=== PATIENT | male | born 1960 | race African-American/Black ===

== ENCOUNTER 2016-04-24 09:10 | Inpatient (IN) | payer BC ==
[~2016-04-24] VITALS: Ht 182.9 cm; Wt 96.7 kg
[~2016-04-24 09:10] MED LIST: AMIO200T2 PO; AZIT250T PO; BENZ100C PO; BENZ100C2 PO; BUDE10.2 IH; CETI10CA PO; DEXT20CA7 PO; DIGO125T16 PO; DILT240C32 PO; FERR-26 PO; FURO-68 PO; LISI-338 PO; LOSA25TA4 PO; METO25TA9 PO; METO50TA2 PO; MONT10TA9 PO; OMEP20CA5 PO; PANT40TA5 PO; POLY17PO5 PO; POTA10TA12 PO; RIVA10TA PO; SPIR25TA PO; TRAV5DRO OU
[2016-04-24] MEDS ORDERED: IV NORMAL SALINE 1000ML BAG 1,000 ML IV SCH (09:21)
[2016-04-24] MEDS ORDERED: FENTANYL PF 100 MCG/2 ML VIAL. IV PRN (09:30)
[2016-04-24] MEDS ORDERED: ONDANSETRON PF 4 MG/2 ML VIAL. IV ONE (09:30)
[2016-04-24] MEDS ORDERED: ASPIRIN 81 MG TAB.CHEW PO ONE (09:30)
--- NOTE | 2016-04-24 09:34 | PHYS DOC ---
Past Medical History Past Medical History: A-Fib, CHF, COPD, Hypertension Past Surgical History: Pacemaker Additional Past Surgical Histo: open heart, cardioversion Alcohol Use: Occasionally Drug Use: Marijuana Adult General Chief Complaint Chief Complaint: CHEST PAIN HPI HPI Patient is a 55 year old male who presents with complaint of chest pain. Patient states his symptoms started at 0330 this morning. Patient states that he is having constant substernal chest pain with associated shortness of breath. Patient has history of atrial fibrillation, congestive heart failure, and COPD. Patient rates pain currently as 7 out of 10. Patient denies nausea. Patient does admit to worsening swelling in both his legs and his abdomen. Patient has not taken any medications to help with symptoms. Patient follows a Dr. Pace of cardiology and Dr. Roman for primary care. Review of Systems Review of Systems Constitutional: Denies fever or chills [] Eyes: Denies change in visual acuity, redness, or eye pain [] HENT: Denies nasal congestion or sore throat [] Respiratory: Cough, shortness of breath [] Cardiovascular: Chest pain, edema [] GI: Denies abdominal pain, nausea, vomiting, bloody stools or diarrhea [] : Denies dysuria or hematuria [] Musculoskeletal: Denies back pain or joint pain [] Integument: Denies rash or skin lesions [] Neurologic: Denies headache, focal weakness or sensory changes [] Endocrine: Denies polyuria or polydipsia [] Current Medications Current Medications Current Medications Medications (Trade) Dose Ordered Sig/Jaison Start Time Stop Time Status Last Admin Dose Admin Aspirin (Children'S Aspirin) 324 mg 1X ONCE 04/24/16 09:30 04/24/16 09:35 DC 04/24/16 09:47 324 MG Fentanyl Citrate 50 mcg 50 mcg PRN Q15MIN PRN 04/24/16 09:30 04/25/16 09:29 04/24/16 09:52 50 MCG Ondansetron HCl (Zofran) 4 mg 1X ONCE 04/24/16 09:30 04/24/16 09:35 DC 04/24/16 09:50 4 MG Sodium Chloride (Iv Sodium Chloride 0.9% 1000ml Bag) 1,000 ml @ 75 mls/hr [id number] 04/24/16 09:21 04/24/16 12:39 DC 04/24/16 09:46 75 MLS/HR Allergies Allergies Allergies Coded Allergies Type Severity Reaction Last Updated Verified No Known Drug Allergies 09/15/15 No Physical Exam Physical Exam Constitutional: Alert, afebrile, appears in mild to moderate respiratory distress. [] HENT: Normocephalic, atraumatic, bilateral external ears normal, oropharynx moist, no oral exudates, nose normal. [] Eyes: PERRLA, EOMI, conjunctiva normal, no discharge. [] Neck: Normal range of motion, no tenderness, supple, no stridor. [] Cardiovascular: Normal rate, irregular rhythm, no murmur [] Lungs & Thorax: Mildly restricted air movement bilaterally, no wheezes, fine rales bilaterally [] Abdomen: Bowel sounds normal, mild to moderately distended, no tenderness, no masses, no pulsatile masses. [] Skin: Warm, dry, no erythema, no rash. [] Back: No tenderness, no CVA tenderness. [] Extremities: No tenderness, no cyanosis, no clubbing, ROM intact, 2+ pitting edema in the bilateral lower extremities. [] Neurologic: Alert and oriented X 3, normal motor function, normal sensory function, no focal deficits noted. [] Current Patient Data Vital Signs Vital Signs Date Time Temp Pulse Resp B/P Pulse Ox O2 Delivery O2 Flow Rate FiO2 04/24/16 09:52 22 04/24/16 09:12 97.8 86 120/71 93 Nasal Cannula 3 97.8 Lab Values Laboratory Tests Test 04/24/16 09:40 White Blood Count 6.3x10^3/uL (4.0-11.0) Red Blood Count 3.71x10^6/uL (4.30-5.70) L Hemoglobin 9.9g/dL (13.0-17.5) L Hematocrit 31.3% (39.0-53.0) L Mean Corpuscular Volume 84fL (79-100) Mean Corpuscular Hemoglobin 27pg (25-35) Mean Corpuscular Hemoglobin Concent 32g/dL (31-37) Red Cell Distribution Width 15.1% (11.5-14.5) H Platelet Count 223x10^3/uL (140-400) Neutrophils (%) (Auto) 68% (31-73) Lymphocytes (%) (Auto) 18% (24-48) L Monocytes (%) (Auto) 13% (0-9) H Eosinophils (%) (Auto) 0% (0-3) Basophils (%) (Auto) 1% (0-3) Neutrophils # (Auto) 4.2x10^3uL (1.8-7.7) Lymphocytes # (Auto) 1.1x10^3/uL (1.0-4.8) Monocytes # (Auto) 0.8x10^3/uL (0.0-1.1) Eosinophils # (Auto) 0.0x10^3/uL (0.0-0.7) Basophils # (Auto) 0.0x10^3/uL (0.0-0.2) Prothrombin Time 44.1SEC (11.7-14.0) H Prothrombin Time INR 5.0 (0.8-1.1) *H Sodium Level 141mmol/L (136-145) Potassium Level 4.1mmol/L (3.5-5.1) Chloride Level 106mmol/L (98-107) Carbon Dioxide Level 21mmol/L (21-32) Anion Gap 14 (6-14) Blood Urea Nitrogen 16mg/dL (8-26) Creatinine 1.1mg/dL (0.7-1.3) Estimated GFR (Cockcroft-Gault) 84.4 Glucose Level 135mg/dL (70-99) H Calcium Level 8.8mg/dL (8.5-10.1) Magnesium Level 1.9mg/dL (1.8-2.4) Total Bilirubin 0.8mg/dL (0.2-1.0) Direct Bilirubin 0.4mg/dL (0.0-0.2) H Aspartate Amino Transferase (AST) 34U/L (15-37) Alanine Aminotransferase (ALT) 25U/L (16-63) Alkaline Phosphatase 229U/L (46-116) H Creatine Kinase 59U/L (39-308) Creatine Kinase MB (Mass) 0.5ng/mL (0.0-3.6) Creatine Kinase MB Relative Index % (0-4) Troponin I Quantitative 0.018ng/mL (0.000-0.055) GR-Xya-I-Type Natriuretic Peptide 1681pg/mL (0-124) H Total Protein 7.2g/dL (6.4-8.2) Albumin 2.9g/dL (3.4-5.0) L Laboratory Tests 04/24/16 09:40 Laboratory Tests 04/24/16 09:40 EKG EKG Interpreted by me: Heart rate 83, paced ventricular rhythm, no acute ST elevations or depressions [] Radiology/Procedures Radiology/Procedures [facility] [address] [place] [address] IMAGING REPORT Signed PATIENT: KURTIS WERNER ACCOUNT: [id number] : 1960 LOCATION: ER AGE: 55 SEX: M EXAM STATUS: PRE ER ORD. PHYSICIAN: STU ISAAC MD REASON: chest pain PROCEDURE: PORTABLE CHEST 1V Indication: Chest pain and short of breath. Technique: Upright portable chest radiograph was obtained. Comparison is from January 23, 2016. Findings: There is minimal retrocardiac atelectasis and/or infiltrate. The lungs otherwise are clear. Heart is upper limits of normal in size. There is no definite heart failure. Pacemaker is noted. Median sternotomy wires are noted. Leads overlie the patient. Impression: Minimal retrocardiac atelectasis and or infiltrate suspected. DICTATED and SIGNED BY: KEELEY MCCOY MD DATE: 04/24/16939 CC: STU ISAAC MD; IDRIS ROMAN MD ~ [] Course & Med Decision Making Course & Med Decision Making Pertinent Labs and Imaging studies reviewed. (See chart for details) The patient was given IV fentanyl, Zofran, oral aspirin in the emergency department. Patient's initial troponin level was negative. Patient has an elevated BNP and an abnormal chest x-ray. Patient does not display leukocytosis or fever. Due to persistent chest pain the patient will need be admitted to rule out myocardial infarction area patient also appears to have a component of congestive heart failure which will require treatment. I consulted Dr. Pace of cardiology to follow patient in hospital. Patient was admitted to Dr. Rojas. Darling Disclaimer Darling Disclaimer This electronic medical record was generated, in whole or in part, using a voice recognition dictation system. Departure Departure Impression: Primary Impression: Chest pain Additional Impressions: Congestive heart failure COPD (chronic obstructive pulmonary disease) Moderate protein malnutrition Disposition: ADMITTED INPATIENT Admitting Physician: Idris Roamn Condition: GUARDED Referrals: IDRIS ROMAN MD (PCP) Problem Qualifiers Primary Impression: Chest pain Chest pain type: unspecified Qualified Code: R07.9 - Chest pain, unspecified Additional Impressions: Congestive heart failure Congestive heart failure type: unspecified congestive heart failure type Congestive heart failure chronicity: acute on chronic Qualified Code: I50.9 - Heart failure, unspecified COPD (chronic obstructive pulmonary disease) COPD type: unspecified COPD Qualified Code: J44.9 - Chronic obstructive pulmonary disease, unspecified STU ISAAC MD Apr 24, 2016 09:34
--- NOTE | 2016-04-24 09:35 | EKG ---
[facility] [address] [place] [address] Test Date: 2016-04-24 Test Time: 09:19:43 Pat Name: KURTIS WERNER Department: Room: Gender: M Fishing Hand: : 1960 Requested By: STU ISAAC Order Number: [id number] Reading MD: Chelsea Moore Measurements Intervals [place] Rate: 83 P: [place]: QRS: -88 QRSD: 202 T: 118 QT: 440 QTc: 518 Interpretive Statements ATRIAL FIBRILLAQTION VENTRICULAR PREMATURE COMPLEX(ES) ABNORMAL LEFT AXIS DEVIATION LOW LIMB LEAD VOLTAGE NON SPECIFIC INTRAVENTRICULAR BLOCK QRS(T) CONTOUR ABNORMALITY CONSISTENT WITH ANTEROSEPTAL INFARCT Electronically Signed On 04-25-2016 15:09:30 CDT by Chelsea Moore
--- NOTE | 2016-04-24 09:44 | RAD ---
Indication: Chest pain and short of breath. Technique: Upright portable chest radiograph was obtained. Comparison is from January 23, 2016. Findings: There is minimal retrocardiac atelectasis and/or infiltrate. The lungs otherwise are clear. Heart is upper limits of normal in size. There is no definite heart failure. Pacemaker is noted. Median sternotomy wires are noted. Leads overlie the patient. Impression: Minimal retrocardiac atelectasis and or infiltrate suspected.
[2016-04-24 10:11] LABS: BASO % 1 % (0-3); EOS % 0 % (0-3); HEMATOCRIT 31.3 % (39.0-53.0); HEMOGLOBIN 9.9 g/dL (13.0-17.5); LYMPH # 1.1 x10^3/uL (1.0-4.8); LYMPH % 18 % (24-48); MEAN CORPUSCULAR HEMOGLOBIN 27 pg (25-35); MEAN CORPUSCULAR HGB CONC 32 g/dL (31-37); MEAN CORPUSCULAR VOLUME 84 fL (79-100); MONO % 13 % (0-9); NEUT % 68 % (31-73); PLATELET COUNT 223 x10^3/uL (140-400); RED BLOOD COUNT 3.71 x10^6/uL (4.30-5.70); RED CELL DISTRIBUTION WIDTH 15.1 % (11.5-14.5); WHITE BLOOD COUNT 6.3 x10^3/uL (4.0-11.0)
[2016-04-24 10:18] LABS: CALCIUM 8.8 mg/dL (8.5-10.1); CREATININE 1.1 mg/dL (0.7-1.3); GFR 84.4; POTASSIUM 4.1 mmol/L (3.5-5.1)
[2016-04-24 10:24] LABS: ALBUMIN 2.9 g/dL (3.4-5.0); DIRECT BILIRUBIN 0.4 mg/dL (0.0-0.2); MAGNESIUM 1.9 mg/dL (1.8-2.4); TOTAL BILIRUBIN 0.8 mg/dL (0.2-1.0); TOTAL PROTEIN 7.2 g/dL (6.4-8.2)
[2016-04-24 10:28] LABS: PROTHROMBIN TIME PATIENT 44.1 SEC (11.7-14.0)
[2016-04-24 10:32] LABS: CKMB MASS 0.5 ng/mL (0.0-3.6); CREATINE KINASE 59 U/L (39-308)
[2016-04-24] MEDS ORDERED: ACETAMINOPHEN 325 MG TABLET. PO PRN (11:00)
[2016-04-24] MEDS ORDERED: ONDANSETRON PF 4 MG/2 ML VIAL. IV PRN (11:00)
[2016-04-24] MEDS: IPRATRPIUM/ALBUTEROL 0.5/2.5MG 3 ML NEBU. NEB SCH ×2 (11:30→18:02)
[2016-04-24 12:15] VITALS: BP 99/73
[2016-04-24] MEDS: FUROSEMIDE 40 MG TABLET PO SCH (13:00)
[2016-04-24] MEDS: METOPROLOL SUCC 24HR ER 25 MG TAB.ER.24H. PO SCH (13:00)
[2016-04-24] MEDS: DIGOXIN 125 MCG TABLET PO SCH (13:00)
--- NOTE | 2016-04-24 13:24 | PDOC2 ---
CARDIOLOGY CONSULT NOTE CHEIF COMPLAINT: Shortness of breath Problems: HPI: Mr. Joaquin is a pleasant 55-year-old gentleman who comes into the hospital for overall feeling ill. He reports that he has been having some chest discomfort across his anterior precordium. There are no exacerbating or alleviating factors. He also has had some mild exertional dyspnea. He reports lower extremity edema. He reports compliance with his medications. He otherwise denies any other specific limitations at this time. PMHX: #1 atrial fibrillation, paroxysmal on Xarelto #2 s/p dual chamber biotronik pacemaker #3 Mild LV dysfunction. EF 45% #4 HTN #5 Presumed ASD repair at a young age #6 Chronic REIA occlusion SOCHX: Patient lives at home with his . He denies any alcohol, tobacco or illicit drug use. FAMHX: No early heart disease. CURRENT MEDS: Current Medications Medications (Trade) Dose Ordered Sig/Jaison Start Time Stop Time Status Last Admin Dose Admin Acetaminophen (Tylenol) 650 mg PRN Q4HRS PRN 04/24/16 11:00 04/25/16 10:59 Albuterol/ Ipratropium (Duoneb) 3 ml RTQID 04/24/16 12:00 04/25/16 11:59 04/24/16 11:30 3 ML Amiodarone HCl (Cordarone) 200 mg HS 04/24/16 21:00 Aspirin (Children'S Aspirin) 324 mg 1X ONCE 04/24/16 09:30 04/24/16 09:35 DC 04/24/16 09:47 324 MG Benzonatate (Tessalon Perle) 100 mg TID 04/24/16 14:00 Digoxin (Lanoxin) 125 mcg DAILY 04/24/16 13:00 Fentanyl Citrate (Fentanyl 2ml Vial) 50 mcg PRN Q2HR PRN 04/24/16 11:00 04/25/16 10:59 Fentanyl Citrate 50 mcg 50 mcg PRN Q15MIN PRN 04/24/16 09:30 04/25/16 09:29 04/24/16 09:52 50 MCG Ferrous Sulfate (Feosol) 325 mg DAILY 04/24/16 13:00 Furosemide (Lasix) 40 mg DAILY 04/24/16 13:00 Losartan Potassium (Cozaar) 25 mg HS 04/24/16 21:00 Metoprolol Succinate (Toprol Xl) 25 mg DAILY 04/24/16 13:00 Montelukast Sodium (Singulair) 10 mg HS 04/24/16 21:00 Ondansetron HCl (Zofran) 4 mg PRN Q8HRS PRN 04/24/16 11:00 04/25/16 10:59 Pantoprazole Sodium (Protonix) 40 mg QHS 04/24/16 21:00 Polyethylene Glycol (miraLAX PACKET) 17 gm DAILY 04/24/16 14:00 Potassium Chloride (Klor-Con) 20 meq DAILYWBKFT 04/24/16 14:00 Rivaroxaban (Xarelto) 20 mg DAILYWSUP 04/24/16 17:00 Sodium Chloride (Iv Sodium Chloride 0.9% 1000ml Bag) 1,000 ml @ 75 mls/hr [id number] 04/24/16 09:21 04/24/16 12:39 DC 04/24/16 09:46 75 MLS/HR Spironolactone (Aldactone) 25 mg DAILY 04/24/16 14:00 ALLERGIES: Allergies Coded Allergies Type Severity Reaction Last Updated Verified No Known Drug Allergies 09/15/15 No ROS: Review of systems is negative for 10 out of 14 systems reviewed unless otherwise mentioned above in history of present illness. PHYSICAL EXAM: Vital Signs: Vital Signs Date Time Temp Pulse Resp B/P Pulse Ox O2 Delivery O2 Flow Rate FiO2 04/24/16 11:31 93 Nasal Cannula 3.0 04/24/16 11:16 82 17 119/72 04/24/16 09:12 97.8 97.8 Physical Exam: The patient appeared well nourished and normally developed. Head exam is unremarkable. No scleral icterus or corneal arcus noted. Neck is without jugular venous distension, thyromegaly, or carotid bruits. Carotid upstrokes are brisk bilaterally. Lungs are clear to auscultation and percussion. Cardiac exam reveals the PMI to be normally sized and situated. Rhythm is regular. First and second heart sounds normal. No murmurs, rubs or gallops. Abdominal exam reveals normal bowel sounds, no masses, no organomegaly and no aortic enlargement. Extremities have 2+ pitting edema and both femoral and pedal pulses are normal. Msk: No traumua Neuro: No focal deficits DIAGNOSTIC TESTING: BNP is elevated. Renal function is within normal limits. INR is elevated 5.5. Lab Laboratory Tests Test 04/24/16 09:40 White Blood Count 6.3x10^3/uL (4.0-11.0) Red Blood Count 3.71x10^6/uL (4.30-5.70) L Hemoglobin 9.9g/dL (13.0-17.5) L Hematocrit 31.3% (39.0-53.0) L Mean Corpuscular Volume 84fL (79-100) Mean Corpuscular Hemoglobin 27pg (25-35) Mean Corpuscular Hemoglobin Concent 32g/dL (31-37) Red Cell Distribution Width 15.1% (11.5-14.5) H Platelet Count 223x10^3/uL (140-400) Neutrophils (%) (Auto) 68% (31-73) Lymphocytes (%) (Auto) 18% (24-48) L Monocytes (%) (Auto) 13% (0-9) H Eosinophils (%) (Auto) 0% (0-3) Basophils (%) (Auto) 1% (0-3) Neutrophils # (Auto) 4.2x10^3uL (1.8-7.7) Lymphocytes # (Auto) 1.1x10^3/uL (1.0-4.8) Monocytes # (Auto) 0.8x10^3/uL (0.0-1.1) Eosinophils # (Auto) 0.0x10^3/uL (0.0-0.7) Basophils # (Auto) 0.0x10^3/uL (0.0-0.2) Prothrombin Time 44.1SEC (11.7-14.0) H Prothromb Time International Ratio 5.0 (0.8-1.1) *H Sodium Level 141mmol/L (136-145) Potassium Level 4.1mmol/L (3.5-5.1) Chloride Level 106mmol/L (98-107) Carbon Dioxide Level 21mmol/L (21-32) Anion Gap 14 (6-14) Blood Urea Nitrogen 16mg/dL (8-26) Creatinine 1.1mg/dL (0.7-1.3) Estimated GFR (Cockcroft-Gault) 84.4 Glucose Level 135mg/dL (70-99) H Calcium Level 8.8mg/dL (8.5-10.1) Total Bilirubin 0.8mg/dL (0.2-1.0) Direct Bilirubin 0.4mg/dL (0.0-0.2) H Aspartate Amino Transf (AST/SGOT) 34U/L (15-37) Alkaline Phosphatase 229U/L (46-116) H Creatine Kinase 59U/L (39-308) Creatine Kinase MB (Mass) 0.5ng/mL (0.0-3.6) Creatine Kinase MB Relative Index % (0-4) Total Protein 7.2g/dL (6.4-8.2) Albumin 2.9g/dL (3.4-5.0) L ASSESSMENT: 1. Suspect mild acute on chronic systolic and diastolic dysfunction. 2. Possible transient atrial arrhythmias. PLAN: 1. Agree with continuation of home medications with intravenous diuresis to see if it improves symptoms 2. Patient has had a cardiac catheterization within the last year without any significant obstructive disease. Would continue supportive care at this time. 3. We will repeat an echocardiogram to assess LV systolic function if he does not any significant improvement with medical therapy over the next 24 hours. Thank you for this consultation. We will follow along with you. SHAN COREAS MD Apr 24, 2016 13:24
[2016-04-24 13:47] LABS: INR 4.3 (0.8-1.1); PROTHROMBIN TIME PATIENT 39.3 SEC (11.7-14.0)
[2016-04-24] MEDS: SPIRONOLACTONE 25 MG TABLET PO SCH (14:00)
[2016-04-24] MEDS: POLYETHYLENE GLYCOL 3350 17 GM PACKET. PO SCH (14:00)
[2016-04-24] MEDS ORDERED: FUROSEMIDE 40 MG/4 ML VIAL IVP ONE (14:00)
[2016-04-24 15:05] VITALS: BP 97/73
[2016-04-24 15:30] VITALS: BP 118/75
[2016-04-24] MEDS: BENZONATATE 100 MG CAPSULE. PO SCH ×2 (16:04→21:38)
[2016-04-24] MEDS: POTASSIUM CHLORIDE 10 MEQ TABLET.ER. PO SCH (16:05)
[2016-04-24] MEDS: FERROUS SULFATE 325 MG TABLET PO SCH (16:05)
[2016-04-24] MEDS: TRAMADOL 50 MG TABLET. PO PRN (16:06)
[2016-04-24] MEDS ORDERED: RIVAROXABAN 10 MG TABLET. PO SCH (17:00)
[2016-04-24 19:40] VITALS: BP 122/76
[2016-04-24] MEDS: MONTELUKAST SODIUM 10 MG TABLET. PO SCH (21:36)
[2016-04-24] MEDS: PANTOPRAZOLE 40 MG TABLET. PO SCH (21:37)
[2016-04-24] MEDS: AMIODARONE HCL 200 MG TABLET PO SCH (21:38)
[2016-04-24] MEDS: LOSARTAN POTASSIUM 25 MG TABLET. PO SCH (21:38)
[2016-04-24 23:33] VITALS: BP 124/72
[2016-04-25] MEDS: TRAMADOL 50 MG TABLET. PO PRN ×3 (01:06→18:15)
[2016-04-25 03:15] VITALS: BP 132/68
[2016-04-25 04:18] LABS: BASO % 1 % (0-3); EOS % 0 % (0-3); HEMATOCRIT 30.3 % (39.0-53.0); HEMOGLOBIN 9.3 g/dL (13.0-17.5); LYMPH # 1.1 x10^3/uL (1.0-4.8); LYMPH % 14 % (24-48); MEAN CORPUSCULAR HEMOGLOBIN 26 pg (25-35); MEAN CORPUSCULAR HGB CONC 31 g/dL (31-37); MEAN CORPUSCULAR VOLUME 86 fL (79-100); MONO % 17 % (0-9); NEUT % 68 % (31-73); PLATELET COUNT 217 x10^3/uL (140-400); RED BLOOD COUNT 3.54 x10^6/uL (4.30-5.70); RED CELL DISTRIBUTION WIDTH 14.7 % (11.5-14.5); WHITE BLOOD COUNT 7.4 x10^3/uL (4.0-11.0)
[2016-04-25 04:32] LABS: CALCIUM 8.8 mg/dL (8.5-10.1); CREATININE 1.1 mg/dL (0.7-1.3); GFR 84.4; POTASSIUM 4.8 mmol/L (3.5-5.1)
--- NOTE | 2016-04-25 05:14 | ACF ---
Admission Forms Criteria HEART FAILURE: COMMON COMPLICATIONS Clinical Indications for Inpatient Care (Place 'X' for any and all applicable criteria): Ongoing inpatient care may be indicated for heart failure with ANY ONE of the following (1)(2)(3)(4)(5): [ ]I. Ongoing need for care for primary condition requiring frequent therapy adjustments because of changes in cardiac function (eg, drug dosage changes for drugs that are renally metabolized) [ ]II. New-onset heart failure [ ]III. Heart failure with decreased urine output not responsive to attempts to optimize volume status [ ]IV. Acute cardiac ischemia causing or associated with failure [X]V. Complications of heart failure, including ANY ONE of the following: [ ]a) Pericardial effusion [ ]b) Symptomatic pleural effusion [ ]c) O2 saturation <90% or PO2 < 60 mm Hg (8.0 kPa) on room air or require baseline supplemental O2 [ ]d) Tachypnea [X]e) Dyspnea [ ]f) Syncope [ ]g) Change in mental status [ ]h) Acute renal insufficiency that is severe (reduction of more than 50% in estimated glomerular filtration rate from baseline) or progressive reduction of more than 25% in estimated glomerular filtration rate from baseline, with creatinine continuing to rise) [ ]i) Hemodynamic instability [ ]j) Anasarca [ ]k) Clinically significant metabolic abnormalities due to heart failure (eg, new-onset metabolic acidosis) Extended stay beyond goal length of stay for primary condition may be needed until ALL of the following are present(1)(3): [ ]a) Stable and effective diuretic regimen established (or patient on stable dialysis regimen if in chronic renal failure) [ ]b) Breathing comfortably at rest [ ]c) Saturation of arterial oxygen greater than 90% or at acceptable baseline [ ]d) Pulmonary edema absent or improved [ ]e) Hemodynamic stability [ ]f) Volume status acceptable on oral medication [ ]g) Peripheral or sacral edema absent or improved [ ]h) Renal function stable and manageable at a lower level of care [ ]i) Complications (eg, pleural effusion) resolved or manageable at a lower level of care [ ]j) Patient or caregiver has received written discharge instructions or educational material addressing activity level, diet, discharge medications, follow-up appointment, weight monitoring, and what to do if symptoms worsen The original [employer] [facility] content created by [employer] has been revised. The portions of the content which have been revised are identified through the use of italic text or in bold, and [facility] has neither reviewed nor approved the modified material.All other unmodified content is copyright [facility]. Please see references footnoted in the original [facility] edition 2016 Admission Criteria Met?: Yes ALIYA CROOKS Apr 25, 2016 05:14
[2016-04-25] MEDS: FENTANYL PF 100 MCG/2 ML VIAL. IV PRN ×2 (05:35→07:54)
[2016-04-25 06:03] LABS: INR 2.3 (0.8-1.1); PROTHROMBIN TIME PATIENT 24.2 SEC (11.7-14.0)
[2016-04-25 07:54] VITALS: BP 121/80
[2016-04-25] MEDS: POTASSIUM CHLORIDE 10 MEQ TABLET.ER. PO SCH (08:00)
[2016-04-25] MEDS: IPRATRPIUM/ALBUTEROL 0.5/2.5MG 3 ML NEBU. NEB SCH ×3 (08:04→19:38)
[2016-04-25] MEDS: METOPROLOL SUCC 24HR ER 25 MG TAB.ER.24H. PO SCH ×2 (09:00→10:52)
[2016-04-25] MEDS: FERROUS SULFATE 325 MG TABLET PO SCH (09:00)
[2016-04-25] MEDS: POLYETHYLENE GLYCOL 3350 17 GM PACKET. PO SCH (09:00)
[2016-04-25] MEDS: BENZONATATE 100 MG CAPSULE. PO SCH ×3 (09:00→21:08)
[2016-04-25 10:22] VITALS: BP 117/72
[2016-04-25] MEDS: SPIRONOLACTONE 25 MG TABLET PO SCH (10:50)
[2016-04-25] MEDS: FUROSEMIDE 40 MG TABLET PO SCH (10:50)
[2016-04-25] MEDS: DIGOXIN 125 MCG TABLET PO SCH (10:52)
--- NOTE | 2016-04-25 11:34 | RAD ---
Indication: Abdominal pain. Technique: KUB contains 2 images. No comparison is available. Findings: Bowel gas pattern is nonobstructive with gas to the rectum. No calculus projecting over either renal shadow is apparent. Leads overlie the patient. There are mild degenerative changes in the spine. Impression: Nonobstructive bowel gas pattern.
[2016-04-25] MEDS ORDERED: FENTANYL PF 100 MCG/2 ML VIAL. IV ONE (13:45)
[2016-04-25] MEDS ORDERED: IPRATRPIUM/ALBUTEROL 0.5/2.5MG 3 ML NEBU. NEB ONE (14:15)
[2016-04-25] MEDS ORDERED: FUROSEMIDE 40 MG/4 ML VIAL IVP ONE (14:15)
[2016-04-25] MEDS ORDERED: HYDROCODONE/APAP 5/325MG TABLET. PO PRN (14:15)
[2016-04-25] MEDS ORDERED: POTASSIUM CHLORIDE 20 MEQ TABLET.ER. PO ONE (14:15)
--- NOTE | 2016-04-25 14:48 | RAD ---
Indication: Abdominal pain and bloating. Technique: Ultrasound of the abdomen was performed. No comparison is available. Findings: Visualized pancreas is unremarkable. Aorta is normal caliber. IVC is patent. The liver is mildly increased in size and is normal in echotexture. Bidirectional flow is noted in the portal vein. Gallbladder wall is thickened, nonspecific but can be associated with ascites. Moderate ascites is noted. Common bile duct is within normal limits at 4 mm. Kidneys are without hydronephrosis or mass. Spleen is not enlarged. Impression: 1. Moderate ascites. 2. Gallbladder wall thickening can be associated with ascites. 3. Mild hepatomegaly. Bidirectional flow in the portal vein.
[2016-04-25 15:25] VITALS: BP 120/71
--- NOTE | 2016-04-25 16:21 | PDOC ---
CARDIOLOGY PROGRESS NOTE SUBJECTIVE: No acute events overnight. Per today, he apparently tried to commit suicide 3 weeks ago and was in [place]. He denies any dyspnea today but does have MSK chest wall pain above his left nipple. Reports orthopnea at home. OBJECTIVE: Vital SIgns: Vital Signs Date Time Temp Pulse Resp B/P Pulse Ox O2 Delivery O2 Flow Rate FiO2 04/25/16 15:25 Nasal Cannula 4.0 04/25/16 14:55 18 04/25/16 10:56 92 04/25/16 10:52 82 04/25/16 10:22 97.9 117/72 97.9 I & O Intake and Output 04/25/16 07:00 Intake Total 1277 ml Output Total 2200 ml Balance -923 ml Intake Oral 1160 ml IV Total 117 ml Output Urine Total 2200 ml Objective: Gen: A/o x 3. NAD CVS: RRR no m/r/g LUNGS: Few rhonchi ABD: Soft, NT/ND EXT: no edema. CURRENT MEDICATIONS: Current Medications Medications (Trade) Dose Ordered Sig/Jaison Start Time Stop Time Status Last Admin Dose Admin Acetaminophen (Tylenol) 650 mg PRN Q4HRS PRN 04/24/16 11:00 04/25/16 10:59 DC Acetaminophen/ Hydrocodone Bitart (Lortab 5/325) 1 tab PRN Q4HRS PRN 04/25/16 14:15 Albuterol/ Ipratropium (Duoneb) 3 ml RTQID 04/25/16 16:00 Amiodarone HCl (Cordarone) 200 mg HS 04/24/16 21:00 04/24/16 21:38 200 MG Aspirin (Children'S Aspirin) 324 mg 1X ONCE 04/24/16 09:30 04/24/16 09:35 DC 04/24/16 09:47 324 MG Benzonatate (Tessalon Perle) 100 mg TID 04/24/16 14:00 04/25/16 14:53 100 MG Digoxin (Lanoxin) 125 mcg DAILY 04/24/16 13:00 04/25/16 10:52 125 MCG Fentanyl Citrate (Fentanyl 2ml Vial) 50 mcg 1X ONCE 04/25/16 13:45 04/25/16 13:46 DC 04/25/16 14:55 50 MCG Fentanyl Citrate 50 mcg 50 mcg PRN Q15MIN PRN 04/24/16 09:30 04/25/16 09:29 DC 04/24/16 09:52 50 MCG Ferrous Sulfate (Feosol) 325 mg DAILY 04/24/16 13:00 04/24/16 16:05 325 MG Furosemide (Lasix) 40 mg 1X ONCE 04/25/16 14:15 04/25/16 14:16 DC 04/25/16 14:54 40 MG Latanoprost (Xalatan) 1 drop QHS 04/25/16 21:00 Losartan Potassium (Cozaar) 25 mg HS 04/24/16 21:00 04/24/16 21:38 25 MG Metoprolol Succinate (Toprol Xl) 25 mg DAILY 04/24/16 13:00 Montelukast Sodium (Singulair) 10 mg HS 04/24/16 21:00 04/24/16 21:36 10 MG Ondansetron HCl (Zofran) 4 mg PRN Q8HRS PRN 04/24/16 11:00 04/25/16 10:59 DC Pantoprazole Sodium (Protonix) 40 mg QHS 04/24/16 21:00 04/24/16 21:37 40 MG Polyethylene Glycol (miraLAX PACKET) 17 gm DAILY 04/24/16 14:00 Potassium Chloride (Klor-Con) 20 meq [id number] 04/26/16 08:00 Rivaroxaban (Xarelto) 20 mg DAILYWSUP 04/24/16 17:00 04/25/16 09:32 DC Sodium Chloride (Iv Sodium Chloride 0.9% 1000ml Bag) 1,000 ml @ 75 mls/hr [id number] 04/24/16 09:21 04/24/16 12:39 DC 04/24/16 09:46 75 MLS/HR Spironolactone (Aldactone) 25 mg DAILY 04/24/16 14:00 04/25/16 10:50 25 MG Tramadol HCl (Ultram) 50 mg PRN Q6HRS PRN 04/24/16 14:00 04/25/16 10:56 50 MG DIAGNOSTIC TESTING: Trop neg x 3. ASSESSMENT: 1. ADHF 2. PAF 3. Depression Problems: PLAN: 1. Lasix 40mg IVP BID 2. Pain control with Tramadol and toradol. Avoid narcotics given his suicide attempt recently but will defer to PCP 3. No clear cardiac ischemic issues. Will follow. SHAN COREAS MD Apr 25, 2016 16:21
[2016-04-25] MEDS ORDERED: KETOROLAC TROMETHAMINE 30 MG/ML SYRINGE. IV PRN (16:30)
[2016-04-25] MEDS ORDERED: FUROSEMIDE 40 MG/4 ML VIAL IVP SCH (16:30)
--- NOTE | 2016-04-25 18:55 | HP ---
ADMIT DATE: 04/25/2016 LOCATION: 208. REASON FOR ADMISSION TO THE HOSPITAL: 1. Shortness of breath. 2. Heart failure: Combined systolic diastolic heart failure. HISTORY OF PRESENT ILLNESS: The patient is a 55-year-old male and he was having shortness of breath, chest pain; came to the Emergency Room. He had a cardiac scan which showed no significant blockages last year and ejection fraction is 50% to 55% on the cath. The patient was seen by Cardiology and it was thought more of a combined diastolic-systolic heart failure, was given Lasix to see how the patient's condition improves. PAST MEDICAL HISTORY: Atrial fibrillation, on Xarelto; history of cardioversion in the past; diastolic heart failure; pulmonary hypertension; VSD repair as a child; COPD; iron deficiency anemia; hemorrhoids; reflux; arthritis; chronic renal insufficiency stage 2. PAST SURGICAL HISTORY: VSD repair as a child, has a pacemaker. FAMILY HISTORY: Diabetes in sister. Heart disease also in the sister. SOCIAL HISTORY: Smoked for 30 years, quit 6 months ago. Denies alcohol. Denies any drug abuse. ALLERGIES: No known drug allergies. MEDICATIONS AT HOME: Amiodarone 200 mg daily, Tessalon Perles daily, digoxin 125 mcg daily, iron 325 daily, Lasix 40 mg daily, losartan 25 mg daily, metoprolol 25 mg daily, Singulair 10 mg daily, Protonix 40 mg at bedtime, MiraLax 17 grams daily, potassium 20 mEq daily, Xarelto 20 mg at bedtime, spironolactone 25 mg daily, Travatan eyedrops daily. REVIEW OF SYSTEMS: Complains of chest pains on and off on the left side, short of breath, swelling in lower extremities. Denies any fever. Rest of 14 systems was reviewed and negative. PHYSICAL EXAMINATION: VITAL SIGNS: At the time of admission shows temperature 97, pulse 86, respirations 20, blood pressure 120/70, 93% on 3 liters. HEENT: Head is atraumatic. Pupils are equal. Oral cavity: No congestion. NECK: JVD slightly elevated. CHEST: Scar in the chest from VSD repair. Has a pacemaker in the left side of the chest. CARDIOVASCULAR: S1, S2. No murmurs. LUNGS: Clear to auscultation. Crackles at the bases and occasional wheezing. ABDOMEN: Soft, slightly prominent secondary to looks like ascites. EXTERNAL GENITALIA: No Erickson. RECTAL: Deferred. EXTREMITIES: 2+ edema all the way up to the knee . NEUROLOGIC: No focal deficit on extremities. LABORATORY DATA: Shows a white count of 6, hemoglobin 10, platelets 223. Electrolytes show sodium 141, potassium 4.1, chloride 106, bicarb 21, BUN 16, creatinine 1.1, glucose 135. Magnesium 1.9. LFTs normal. INR was high at 5.0, came down to 2.3. Chest x-ray: Mild CHF, cardiomegaly. EKG done, report is pending. FINAL IMPRESSION: 1. Chest pain, probably skeletomuscular. 2. Shortness of breath secondary to congestive heart failure secondary to diastolic heart failure. 3. Pulmonary hypertension. 4. History of ventricular septal defect repair. 5. History of pacemaker for bradycardia. 6. Atrial fibrillation, chronic, on Xarelto for anticoagulation. 7. Anemia secondary to iron deficiency. 8. Chronic renal insufficiency stage 2. 9. History of smoking until recently, 6 months ago stopped. PLAN: At this time, admit to hospital. Seen by Cardiology; does not think it is cardiac related. I will give IV Lasix. Also seen by Pulmonology in the past. The patient is in coagulopathy, INR was 5 even though he is not on Coumadin. He is on Xarelto, coming down to 2.3. SCDs and PARK hose, and see how the patient's condition improves. MARLON BURNS MD DR: JULIÁN/taiwo JOB#: [id number] / [id number] MARLON Sarabia MD, PRATIP MD MTDD
[2016-04-25 19:45] VITALS: BP 120/69
[2016-04-25] MEDS: MONTELUKAST SODIUM 10 MG TABLET. PO SCH (21:08)
[2016-04-25] MEDS: LOSARTAN POTASSIUM 25 MG TABLET. PO SCH (21:08)
[2016-04-25] MEDS: AMIODARONE HCL 200 MG TABLET PO SCH (21:08)
[2016-04-25] MEDS: LATANOPROST 0.005% OPHTH SOLUTION 2.5ML BOTTLE. OU SCH (21:09)
[2016-04-25] MEDS: PANTOPRAZOLE 40 MG TABLET. PO SCH (21:09)
[2016-04-25 23:30] VITALS: BP 116/62
[2016-04-26 03:35] VITALS: BP 108/61
[2016-04-26 05:17] LABS: CALCIUM 8.8 mg/dL (8.5-10.1); CREATININE 1.4 mg/dL (0.7-1.3); GFR 63.9; POTASSIUM 4.5 mmol/L (3.5-5.1)
[2016-04-26 07:48] VITALS: BP 98/68
--- NOTE | 2016-04-26 07:52 | EKG ---
[facility] [address] [place] [address] Test Date: 2016-04-26 Test Time: 07:35:03 Pat Name: KURTIS WERNER Department: Room: 208 1 Gender: M Maxillofacial Surgeon: : [id number] Requested By: MARLON BURNS Order Number: [id number] Reading MD: Measurements Intervals [place] Rate: 86 P: 8 PA: 180 QRS: -41 QRSD: 100 T: -69 QT: 344 QTc: 414 Interpretive Statements SINUS RHYTHM COMPLEX(ES) WITH ABERRANT INTRAVENTRICULAR CONDUCTION ABNORMAL LEFT AXIS DEVIATION CONSIDER LEFT VENTRICULAR HYPERTROPHY QRS(T) CONTOUR ABNORMALITY CONSISTENT WITH INFERIOR INFARCT AGE UNDETERMINED T ABNORMALITY IN ANTEROLATERAL LEADS ABNORMAL ECG RI6.01 No previous ECG available for comparison
[2016-04-26] MEDS ORDERED: ACETAMINOPHEN 325 MG TABLET. PO PRN (08:15)
[2016-04-26] MEDS: IPRATRPIUM/ALBUTEROL 0.5/2.5MG 3 ML NEBU. NEB SCH ×4 (08:27→19:41)
--- NOTE | 2016-04-26 08:31 | PDOC ---
FIOR PACHECO NEUROLOGY EPILEPSY PHYSICIAN 04/26/16 0831: IM PROGRESS NOTES- Subjective Subjective pain L sided chest with DB, no pain with palpation. abdomen still swollen, not decreasing. Objective Objective no distress Vitals Vital Signs Date Time Temp Pulse Resp B/P Pulse Ox O2 Delivery O2 Flow Rate FiO2 04/26/16 07:48 97.9 50 18 98/68 93 Nasal Cannula 3.0 97.9 Input & Output Intake and Output 04/26/16 07:00 Intake Total 2610 ml Output Total 850 ml Balance 1760 ml Intake Oral 2610 ml Output Urine Total 850 ml Physical Exam Physical Exam General appearance - alert chronically ill appearing, and in no distress Mental Status - alert, oriented to person, place, and time, affect appropriate to mood Head - normal Chest - clear to auscultation, no wheezes, rales or rhonchi, symmetric air entry Heart - S1 and S2 normal Abdomen - soft, nontender, + ascites distended, BS+ Neurological - no acute focal neurological deficit noted Musculoskeletal - no muscular tenderness noted Extremities - no pedal edema Skin - warm and dry Labs Laboratory Tests Test 04/24/16 09:40 04/24/16 13:10 04/25/16 00:01 04/25/16 03:00 White Blood Count 6.3x10^3/uL (4.0-11.0) 7.4x10^3/uL (4.0-11.0) Red Blood Count 3.71x10^6/uL (4.30-5.70) 3.54x10^6/uL (4.30-5.70) Hemoglobin 9.9g/dL (13.0-17.5) 9.3g/dL (13.0-17.5) Hematocrit 31.3% (39.0-53.0) 30.3% (39.0-53.0) Mean Corpuscular Volume 84fL (79-100) 86fL (79-100) Mean Corpuscular Hemoglobin 27pg (25-35) 26pg (25-35) Mean Corpuscular Hemoglobin Concent 32g/dL (31-37) 31g/dL (31-37) Red Cell Distribution Width 15.1% (11.5-14.5) 14.7% (11.5-14.5) Platelet Count 223x10^3/uL (140-400) 217x10^3/uL (140-400) Neutrophils (%) (Auto) 68% (31-73) 68% (31-73) Lymphocytes (%) (Auto) 18% (24-48) 14% (24-48) Monocytes (%) (Auto) 13% (0-9) 17% (0-9) Eosinophils (%) (Auto) 0% (0-3) 0% (0-3) Basophils (%) (Auto) 1% (0-3) 1% (0-3) Neutrophils # (Auto) 4.2x10^3uL (1.8-7.7) 5.0x10^3uL (1.8-7.7) Lymphocytes # (Auto) 1.1x10^3/uL (1.0-4.8) 1.1x10^3/uL (1.0-4.8) Monocytes # (Auto) 0.8x10^3/uL (0.0-1.1) 1.3x10^3/uL (0.0-1.1) Eosinophils # (Auto) 0.0x10^3/uL (0.0-0.7) 0.0x10^3/uL (0.0-0.7) Basophils # (Auto) 0.0x10^3/uL (0.0-0.2) 0.0x10^3/uL (0.0-0.2) Prothrombin Time 44.1SEC (11.7-14.0) 39.3SEC (11.7-14.0) 24.2SEC (11.7-14.0) Prothromb Time International Ratio 5.0 (0.8-1.1) 4.3 (0.8-1.1) 2.3 (0.8-1.1) Sodium Level 141mmol/L (136-145) 138mmol/L (136-145) Potassium Level 4.1mmol/L (3.5-5.1) 4.8mmol/L (3.5-5.1) Chloride Level 106mmol/L (98-107) 102mmol/L (98-107) Carbon Dioxide Level 21mmol/L (21-32) 23mmol/L (21-32) Anion Gap 14 (6-14) 13 (6-14) Blood Urea Nitrogen 16mg/dL (8-26) 14mg/dL (8-26) Creatinine 1.1mg/dL (0.7-1.3) 1.1mg/dL (0.7-1.3) Estimated GFR (Cockcroft-Gault) 84.4 84.4 Glucose Level 135mg/dL (70-99) 94mg/dL (70-99) Calcium Level 8.8mg/dL (8.5-10.1) 8.8mg/dL (8.5-10.1) Magnesium Level 1.9mg/dL (1.8-2.4) Total Bilirubin 0.8mg/dL (0.2-1.0) Direct Bilirubin 0.4mg/dL (0.0-0.2) Aspartate Amino Transf (AST/SGOT) 34U/L (15-37) Alanine Aminotransferase (ALT/SGPT) 25U/L (16-63) Alkaline Phosphatase 229U/L (46-116) Creatine Kinase 59U/L (39-308) Creatine Kinase MB (Mass) 0.5ng/mL (0.0-3.6) Creatine Kinase MB Relative Index % (0-4) Troponin I Quantitative 0.018ng/mL (0.000-0.055) 0.020ng/mL (0.000-0.055) 0.019ng/mL (0.000-0.055) NR-Ics-Y-Type Natriuretic Peptide 1681pg/mL (0-124) Total Protein 7.2g/dL (6.4-8.2) Albumin 2.9g/dL (3.4-5.0) Test 04/26/16 03:39 Sodium Level 137mmol/L (136-145) Potassium Level 4.5mmol/L (3.5-5.1) Chloride Level 101mmol/L (98-107) Carbon Dioxide Level 24mmol/L (21-32) Anion Gap 12 (6-14) Blood Urea Nitrogen 19mg/dL (8-26) Creatinine 1.4mg/dL (0.7-1.3) Estimated GFR (Cockcroft-Gault) 63.9 Glucose Level 99mg/dL (70-99) Calcium Level 8.8mg/dL (8.5-10.1) Laboratory Tests Test 04/26/16 03:39 Sodium Level 137mmol/L (136-145) Potassium Level 4.5mmol/L (3.5-5.1) Chloride Level 101mmol/L (98-107) Carbon Dioxide Level 24mmol/L (21-32) Anion Gap 12 (6-14) Blood Urea Nitrogen 19mg/dL (8-26) Creatinine 1.4mg/dL (0.7-1.3) Estimated GFR (Cockcroft-Gault) 63.9 Glucose Level 99mg/dL (70-99) Calcium Level 8.8mg/dL (8.5-10.1) Meds Current Medications Acetaminophen (Tylenol) 650 mg PRN Q6HRS PRN PO MILD PAIN / TEMP; Start at 08:15 Acetaminophen/ Hydrocodone Bitart (Lortab 5/325) 1 tab PRN Q4HRS PRN PO MILD PAIN; Start 04/25/16 at 14:15 Albuterol/ Ipratropium (Duoneb) 3 ml 1X ONCE NEB Last administered on 15:25; Start 04/25/16 at 14:15; Stop 04/25/16 at 14:23; Status DC Albuterol/ Ipratropium (Duoneb) 3 ml RTQID NEB Last administered on 04/25/16 19:38; Start 04/25/16 at 16:00 Fentanyl Citrate (Fentanyl 2ml Vial) 50 mcg 1X ONCE IV Last administered on 14:55; Start 04/25/16 at 13:45; Stop 04/25/16 at 13:46; Status DC Furosemide (Lasix) 40 mg 1X ONCE IVP Last administered on 04/25/16 14:54; Start 04/25/16 at 14:15; Stop 04/25/16 at 14:16; Status DC Furosemide (Lasix) 40 mg BID92 IVP Last administered on 04/25/16 17:12; Start 04/25/16 at 16:30; Stop 04/26/16 at 07:41; Status DC Furosemide (Lasix) 40 mg BID92 IVP ; Start 04/26/16 at 09:00 Ketorolac Tromethamine (Toradol) 30 mg PRN Q6HRS PRN IV PAIN Last administered on 04/25/16 18:16; Start 04/25/16 at 16:30; Stop 04/26/16 at 08:12; Status DC Latanoprost (Xalatan) 1 drop QHS OU Last administered on 04/25/16 21:09; Start 04/25/16 at 21:00 Potassium Chloride (Klor-Con) 20 meq 1X ONCE PO Last administered on 14:53; Start 04/25/16 at 14:15; Stop 04/25/16 at 14:16; Status DC Potassium Chloride (Klor-Con) 20 meq DAILYWBKFT PO ; Start 04/26/16 at 08:00 Assessment Assessment IMPRESSION: 1. Chest pain-pleuritic, not reproducible with palpation chest wall 2. A/C systolic diastolic CHF EF 45% 3. Pulmonary hypertension mod to severe 4. History of ventricular septal defect repair. as child 5. History of pacemaker Biotronik dual chamber 6. Atrial fibrillation, chronic, on Xarelto for anticoagulation. 7. Anemia secondary to iron deficiency. 8. CKD II 9. History of smoking until recently, 6 months ago stopped. 10. COPD 11. depression PLAN: chest pain EKG old infarct had been off xarelto for 2 weeks last month pain chest worse with DB, not reproducible with chest wall palpation cardiology consult ?pleuritic consult pulmonary ascites-secondary to CHF CHF, combined acute Admit wt 207# 04/26 208# IO Daily weight Lasix 40mg IV bid depression Had stopped taking medications. Taking medications again and actively involved in medical care. monitor CKD II Admit BUN 16 04/26 18 Cr 1.1 1.4 K 4.1 4.5 not acute RF-due to diuresis acute CHF monitor AF xarelto DVT/GI prophylaxis SCD/PARK xarelto PPI For further plan of care, please refer to the orders. Plan Plan For more details regarding further plans, please refer to the orders. CHAVA NIXON MD 04/26/16 0952: IM PROGRESS NOTES- Assessment Assessment He has rt testicular swelling.No pain. Consult . Coagulopathy- on Xarelto for 2 weeks again. Consult - coagulopathy on Xarelto ? change /reduce dose. CKD 3. The patient was seen and examined by me. Chart reviewed and plan of care formulated. Discussed with, reviewed and agree with COMPUTER PROGRAMMING MANAGER's notes, plan of care and orders with modifications as necessary. For more details regarding further plans, please refer to the orders. FIOR PACHECO APRN Apr 26, 2016 08:31 CHAVA NIXON MD Apr 26, 2016 09:52
[2016-04-26] MEDS: FUROSEMIDE 40 MG/4 ML VIAL IVP SCH ×2 (08:55→14:16)
[2016-04-26] MEDS: BENZONATATE 100 MG CAPSULE. PO SCH ×3 (08:55→21:43)
[2016-04-26] MEDS: FERROUS SULFATE 325 MG TABLET PO SCH (08:55)
[2016-04-26] MEDS: TRAMADOL 50 MG TABLET. PO PRN ×2 (08:55→21:47)
[2016-04-26] MEDS: POTASSIUM CHLORIDE 20 MEQ TABLET.ER. PO SCH (08:55)
[2016-04-26] MEDS: DIGOXIN 125 MCG TABLET PO SCH (08:57)
[2016-04-26] MEDS: POLYETHYLENE GLYCOL 3350 17 GM PACKET. PO SCH (08:57)
[2016-04-26] MEDS: SPIRONOLACTONE 25 MG TABLET PO SCH (08:58)
[2016-04-26] MEDS: METOPROLOL SUCC 24HR ER 25 MG TAB.ER.24H. PO SCH (09:00)
[2016-04-26 10:35] VITALS: BP 108/41
--- NOTE | 2016-04-26 11:19 | PDOC ---
SUBJECTIVE Subjective Pt. with right sided groin swelling OBJECTIVE Objective right hernia-hydrocele Vital Signs Vital Signs Date Time Temp Pulse Resp B/P Pulse Ox O2 Delivery O2 Flow Rate FiO2 04/26/16 10:35 99.0 18 108/41 94 Nasal Cannula 3.0 99.0 04/26/16 08:57 82 98/68 04/26/16 08:55 91 Nasal Cannula 3.0 04/26/16 08:27 91 Nasal Cannula 3.0 04/26/16 08:00 Nasal Cannula 3.0 04/26/16 07:48 97.9 50 18 98/68 93 Nasal Cannula 3.0 97.9 04/26/16 03:35 98.8 82 20 108/61 91 Nasal Cannula 3.0 98.8 04/25/16 23:30 98.2 58 18 116/62 92 Nasal Cannula 3.0 98.2 04/25/16 21:08 86 120/69 04/25/16 21:08 86 120/69 04/25/16 20:00 Nasal Cannula 3.0 04/25/16 19:45 97.2 86 18 120/69 92 Nasal Cannula 3.0 97.2 04/25/16 19:38 93 Nasal Cannula 4.0 04/25/16 18:15 93 Nasal Cannula 4.0 04/25/16 15:25 98.1 81 18 120/71 93 Nasal Cannula 3.0 98.1 04/25/16 15:25 Nasal Cannula 4.0 04/25/16 14:55 18 Nasal Cannula 2.0 04/25/16 11:56 18 Nasal Cannula 3.0 I & O Intake and Output 04/26/16 07:00 Intake Total 2610 ml Output Total 850 ml Balance 1760 ml Intake Oral 2610 ml Output Urine Total 850 ml PHYSICAL EXAM Physical Exam right inguinal hernia with hydrocele ASSESSMENT/PLAN Assessment/Plan consult general surgery for right inguinal hernia Problems: COMMENT Lab Laboratory Tests Test 04/26/16 03:39 Sodium Level 137mmol/L (136-145) Potassium Level 4.5mmol/L (3.5-5.1) Chloride Level 101mmol/L (98-107) Carbon Dioxide Level 24mmol/L (21-32) Anion Gap 12 (6-14) Blood Urea Nitrogen 19mg/dL (8-26) Creatinine 1.4mg/dL (0.7-1.3) Estimated GFR (Cockcroft-Gault) 63.9 Glucose Level 99mg/dL (70-99) Calcium Level 8.8mg/dL (8.5-10.1) PRICE KOVACS MD Apr 26, 2016 11:19
--- NOTE | 2016-04-26 12:11 | PDOC ---
PULMONARY PROGRESS NOTES Vitals Vital Signs Date Time Temp Pulse Resp B/P Pulse Ox O2 Delivery O2 Flow Rate FiO2 04/26/16 11:51 92 Nasal Cannula 3.0 04/26/16 10:35 99.0 18 108/41 99.0 04/26/16 09:00 82 General: Alert, Oriented X4, No acute distress Lungs: Clear Cardiovascular: S1, S2 Abdomen: Soft, Non-tender Extremities: No Edema Labs Laboratory Tests Test 04/24/16 13:10 04/25/16 00:01 04/25/16 03:00 04/26/16 03:39 Prothrombin Time 39.3SEC (11.7-14.0) 24.2SEC (11.7-14.0) Prothromb Time International Ratio 4.3 (0.8-1.1) 2.3 (0.8-1.1) Troponin I Quantitative 0.020ng/mL (0.000-0.055) 0.019ng/mL (0.000-0.055) White Blood Count 7.4x10^3/uL (4.0-11.0) Red Blood Count 3.54x10^6/uL (4.30-5.70) Hemoglobin 9.3g/dL (13.0-17.5) Hematocrit 30.3% (39.0-53.0) Mean Corpuscular Volume 86fL (79-100) Mean Corpuscular Hemoglobin 26pg (25-35) Mean Corpuscular Hemoglobin Concent 31g/dL (31-37) Red Cell Distribution Width 14.7% (11.5-14.5) Platelet Count 217x10^3/uL (140-400) Neutrophils (%) (Auto) 68% (31-73) Lymphocytes (%) (Auto) 14% (24-48) Monocytes (%) (Auto) 17% (0-9) Eosinophils (%) (Auto) 0% (0-3) Basophils (%) (Auto) 1% (0-3) Neutrophils # (Auto) 5.0x10^3uL (1.8-7.7) Lymphocytes # (Auto) 1.1x10^3/uL (1.0-4.8) Monocytes # (Auto) 1.3x10^3/uL (0.0-1.1) Eosinophils # (Auto) 0.0x10^3/uL (0.0-0.7) Basophils # (Auto) 0.0x10^3/uL (0.0-0.2) Sodium Level 138mmol/L (136-145) 137mmol/L (136-145) Potassium Level 4.8mmol/L (3.5-5.1) 4.5mmol/L (3.5-5.1) Chloride Level 102mmol/L (98-107) 101mmol/L (98-107) Carbon Dioxide Level 23mmol/L (21-32) 24mmol/L (21-32) Anion Gap 13 (6-14) 12 (6-14) Blood Urea Nitrogen 14mg/dL (8-26) 19mg/dL (8-26) Creatinine 1.1mg/dL (0.7-1.3) 1.4mg/dL (0.7-1.3) Estimated GFR (Cockcroft-Gault) 84.4 63.9 Glucose Level 94mg/dL (70-99) 99mg/dL (70-99) Calcium Level 8.8mg/dL (8.5-10.1) 8.8mg/dL (8.5-10.1) Prostate Specific Antigen 0.57ng/mL (0.00-4.00) Laboratory Tests Test 04/26/16 03:39 Sodium Level 137mmol/L (136-145) Potassium Level 4.5mmol/L (3.5-5.1) Chloride Level 101mmol/L (98-107) Carbon Dioxide Level 24mmol/L (21-32) Anion Gap 12 (6-14) Blood Urea Nitrogen 19mg/dL (8-26) Creatinine 1.4mg/dL (0.7-1.3) Estimated GFR (Cockcroft-Gault) 63.9 Glucose Level 99mg/dL (70-99) Calcium Level 8.8mg/dL (8.5-10.1) Prostate Specific Antigen 0.57ng/mL (0.00-4.00) Medications Active Scripts Medications Dose Route/Sig Days Date Category Dose Instructions Tessalon Perle (Benzonatate) 100 Mg Capsule 1 Cap PO TID 9/22/16 Rx Zithromax (Azithromycin) 250 Mg Tablet 1 Pkg PO UD 10/30/15 Rx 2 tabs on first day, 1 tab daily for next 4 days Amiodarone Hcl 200 Mg Tablet 200 Mg PO HS 09/17/15 Rx Lasix (Furosemide) 40 Mg Tablet 1 Tab PO DAILY 09/17/15 Rx Aldactone (Spironolactone) 25 Mg Tablet 25 Mg PO DAILY 09/17/15 Rx Klor-Con M10 (Potassium Chloride) 10 Meq Tab.er.prt 20 Meq PO DAILYWBKFT 09/17/15 Rx Miralax (Polyethylene Glycol 3350) 17 Gm Powd.pack 17 Gm PO DAILY 09/17/15 Rx Lanoxin (Digoxin) 125 Mcg Tablet 125 Mcg PO DAILY 09/17/15 Rx Pantoprazole Sodium 40 Mg Tablet.dr 40 Mg PO QHS 09/15/15 Reported Ferrous Sulfate 325 Mg Tablet 325 Mg PO DAILY 09/15/15 Reported Metoprolol Succinate ( Xl ) (Metoprolol Succinate) 25 Mg Tab.er.24h 25 Mg PO DAILY 06/27/15 Rx Losartan Potassium 25 Mg Tablet 25 Mg PO HS 09/25/13 Reported Xarelto (Rivaroxaban) 10 Mg Tablet 20 Mg PO HS 09/25/13 Reported Montelukast Sodium Tablet (Montelukast Sodium) 10 Mg Tablet 10 Mg PO HS 09/25/13 Reported Travatan Z (Travoprost) 5 Ml Drops 1 Drop OU HS 05/21/13 Reported Impression . FULL NOTE DICTATED CHEST PAIN SUSPECT PLEURISY ATELECTASIS ON CXR ASHLEY FERNANDO MD Apr 26, 2016 12:11
--- NOTE | 2016-04-26 12:40 | PDOC2 ---
YAMILET PENNINGTON BLISTER RUST ERADICATOR 04/26/16 1240: CONSULT Date of Consult Date of Consult DATE: 04/26/16 TIME: 12:30 Reason for Consult Reason for Consult: [facility] Referring Physician Referring Physician: Dr Roman Identification/Chief Complaint Chief Complaint SOA Source Source: Chart review, Patient History of Present Illness Reason for Visit: Admitted with chest pain and SOA. History of HF, COPD, Afib, on xalerto Reports Right inguinal bulge for couple of weeks. Mildly tender with ambulating. No nausea/vomiting, or constipation/diarrhea. Past Medical History Cardiovascular: AFIB, CHF, HTN, Hyperlipidemia, Other Pulmonary: COPD CENTRAL NERVOUS SYSTEM: Other GI: GERD, Hemorrhoids Heme/Onc: Anemia NOS Hepatobiliary: No pertinent hx Psych: No pertinent hx Musculoskeletal: Osteoarthritis Rheumatologic: No pertinent hx Infectious disease: No pertinent hx Renal/: Chronic renal insuff Endocrine: Hypothyroidism Past Surgical History Past Surgical History: Pacemaker, Other Family History Family History: Coronary Artery Disease Social History ALCOHOL: occassional Drugs: None Lives: with Family Domestic Violence: Neg Current Problem List Problem List Problems Medical Problems: (1) Chest pain Status: Acute (2) Congestive heart failure Status: Acute (3) COPD (chronic obstructive pulmonary disease) Status: Acute (4) Moderate protein malnutrition Status: Acute Current Medications Current Medications Current Medications Aspirin (Children'S Aspirin) 324 mg 1X ONCE PO Last administered on 04/24/16 09:47; Start 04/24/16 at 09:30; Stop 04/24/16 at 09:35; Status DC Fentanyl Citrate 50 mcg 50 mcg PRN Q15MIN PRN IV PAIN GREATER THAN 3/10 Last administered on 04/24/16 09:52; Start 04/24/16 at 09:30; Stop 04/25/16 at 09:29 ; Status DC Sodium Chloride (Iv Sodium Chloride 0.9% 1000ml Bag) 1,000 ml @ 75 mls/hr [id number] IV Last administered on 04/24/16 09:46; Start 04/24/16 at 09:21; Stop 04/24/16 at 12:39; Status DC Ondansetron HCl (Zofran) 4 mg 1X ONCE IV Last administered on 04/24/16 09:50 ; Start 04/24/16 at 09:30; Stop 04/24/16 at 09:35; Status DC Ondansetron HCl (Zofran) 4 mg PRN Q8HRS PRN IV NAUSEA/VOMITING; Start 04/24/16 at 11:00; Stop 04/25/16 at 10:59; Status DC Fentanyl Citrate (Fentanyl 2ml Vial) 50 mcg PRN Q2HR PRN IV PAIN Last administered on 04/25/16 07:54; Start 04/24/16 at 11:00; Stop 04/25/16 at 10:59 ; Status DC Acetaminophen (Tylenol) 650 mg PRN Q4HRS PRN PO FEVER; Start 04/24/16 at 11:00 ; Stop 04/25/16 at 10:59; Status DC Albuterol/ Ipratropium (Duoneb) 3 ml RTQID NEB Last administered on 04/25/16 08:04; Start 04/24/16 at 12:00; Stop 04/25/16 at 11:59; Status DC Amiodarone HCl (Cordarone) 200 mg HS PO Last administered on 04/25/16 21:08; Start 04/24/16 at 21:00 Benzonatate (Tessalon Perle) 100 mg TID PO Last administered on 04/26/16 08:55 ; Start 04/24/16 at 14:00 Digoxin (Lanoxin) 125 mcg DAILY PO Last administered on 04/26/16 08:57; Start 04/24/16 at 13:00 Ferrous Sulfate (Feosol) 325 mg DAILY PO Last administered on 04/26/16 08:55; Start 04/24/16 at 13:00 Furosemide (Lasix) 40 mg DAILY PO Last administered on 04/25/16 10:50; Start 04/24/16 at 13:00; Stop 04/25/16 at 14:09; Status DC Losartan Potassium (Cozaar) 25 mg HS PO Last administered on 04/25/16 21:08; Start 04/24/16 at 21:00 Metoprolol Succinate (Toprol Xl) 25 mg DAILY PO ; Start 04/24/16 at 13:00 Montelukast Sodium (Singulair) 10 mg HS PO Last administered on 04/25/16 21:08 ; Start 04/24/16 at 21:00 Pantoprazole Sodium (Protonix) 40 mg QHS PO Last administered on 04/25/16 21: 09; Start 04/24/16 at 21:00 Polyethylene Glycol (miraLAX PACKET) 17 gm DAILY PO Last administered on 08:57; Start 04/24/16 at 14:00 Potassium Chloride (Klor-Con) 20 meq DAILYWBKFT PO Last administered on 16:05; Start 04/24/16 at 14:00; Stop 04/26/16 at 07:41; Status DC Rivaroxaban (Xarelto) 20 mg DAILYWSUP PO ; Start 04/24/16 at 17:00; Stop at 09:32; Status DC Spironolactone (Aldactone) 25 mg DAILY PO Last administered on 04/26/16 08:58 ; Start 04/24/16 at 14:00 Furosemide (Lasix) 40 mg 1X ONCE IVP Last administered on 04/24/16 16:06; Start 04/24/16 at 14:00; Stop 04/24/16 at 14:14; Status DC Tramadol HCl (Ultram) 50 mg PRN Q6HRS PRN PO PAIN Last administered on 08:55; Start 04/24/16 at 14:00 Latanoprost (Xalatan) 1 drop QHS OU Last administered on 04/25/16 21:09; Start 04/25/16 at 21:00 Fentanyl Citrate (Fentanyl 2ml Vial) 50 mcg 1X ONCE IV Last administered on 14:55; Start 04/25/16 at 13:45; Stop 04/25/16 at 13:46; Status DC Furosemide (Lasix) 40 mg BID92 IVP Last administered on 04/26/16 08:55; Start 04/26/16 at 09:00 Furosemide (Lasix) 40 mg 1X ONCE IVP Last administered on 04/25/16 14:54; Start 04/25/16 at 14:15; Stop 04/25/16 at 14:16; Status DC Potassium Chloride (Klor-Con) 20 meq 1X ONCE PO Last administered on 14:53; Start 04/25/16 at 14:15; Stop 04/25/16 at 14:16; Status DC Potassium Chloride (Klor-Con) 20 meq DAILYWBKFT PO Last administered on 08:55; Start 04/26/16 at 08:00 Albuterol/ Ipratropium (Duoneb) 3 ml 1X ONCE NEB Last administered on 15:25; Start 04/25/16 at 14:15; Stop 04/25/16 at 14:23; Status DC Albuterol/ Ipratropium (Duoneb) 3 ml RTQID NEB Last administered on 04/26/16 11:49; Start 04/25/16 at 16:00 Acetaminophen/ Hydrocodone Bitart (Lortab 5/325) 1 tab PRN Q4HRS PRN PO MILD PAIN; Start 04/25/16 at 14:15 Furosemide (Lasix) 40 mg BID92 IVP Last administered on 04/25/16 17:12; Start 04/25/16 at 16:30; Stop 04/26/16 at 07:41; Status DC Ketorolac Tromethamine (Toradol) 30 mg PRN Q6HRS PRN IV PAIN Last administered on 04/25/16 18:16; Start 04/25/16 at 16:30; Stop 04/26/16 at 08:12; Status DC Acetaminophen (Tylenol) 650 mg PRN Q6HRS PRN PO MILD PAIN / TEMP; Start at 08:15 Active Scripts Active Tessalon Perle (Benzonatate) 100 Mg Capsule 1 Cap PO TID Zithromax (Azithromycin) 250 Mg Tablet 1 Pkg PO UD 2 tabs on first day, 1 tab daily for next 4 days Amiodarone Hcl 200 Mg Tablet 200 Mg PO HS Lasix (Furosemide) 40 Mg Tablet 1 Tab PO DAILY Aldactone (Spironolactone) 25 Mg Tablet 25 Mg PO DAILY Klor-Con M10 (Potassium Chloride) 10 Meq Tab.er.prt 20 Meq PO DAILYWBKFT Miralax (Polyethylene Glycol 3350) 17 Gm Powd.pack 17 Gm PO DAILY Lanoxin (Digoxin) 125 Mcg Tablet 125 Mcg PO DAILY Metoprolol Succinate ( Xl ) (Metoprolol Succinate) 25 Mg Tab.er.24h 25 Mg PO DAILY Reported Pantoprazole Sodium 40 Mg Tablet.dr 40 Mg PO QHS Ferrous Sulfate 325 Mg Tablet 325 Mg PO DAILY Losartan Potassium 25 Mg Tablet 25 Mg PO HS Xarelto (Rivaroxaban) 10 Mg Tablet 20 Mg PO HS Montelukast Sodium Tablet (Montelukast Sodium) 10 Mg Tablet 10 Mg PO HS Travatan Z (Travoprost) 5 Ml Drops 1 Drop OU HS Allergies Allergies: Coded Allergies: No Known Drug Allergies (Unverified , 09/15/15) ROS General: No: Chills, Other (fevers) PSYCHOLOGICAL ROS: No: Anxiety, Depression Eyes: No Blurry vision, No Double vision HEENT: No: Heacaches, Sore Throat Respiratory: YES: Cough, Shortness of breath Cardiovascular: yes Chest Pain, No Palpitations Gastrointestinal: Yes Other (see hpi) Genitourinary: YES Dysuria, No Hematuria Musculoskeletal: No Joint Pain, No Muscle Pain Neurological: No Impaired Coord/balance, No Numbness/Tingling Skin: No Pruritus, No Rash Physical Exam Physical Exam Right inguinal hernia --palpable, reducible General: Alert, Oriented X3, Cooperative, No acute distress HEENT: PERRLA, Mucous membr. moist/pink Lungs: Other (diminished, 02 present) Heart: Regular rate, Normal S1, Normal S2 Abdomen: Normal bowel sounds, Soft, Other (moderate ascites present ) Extremities: No clubbing, No cyanosis Skin: No rashes, No breakdown Neuro: Normal speech, Sensation intact Psych/Mental Status: Mental status NL, Mood NL MUSCULOSKELETAL: No deformity, No swelling Vitals VITALS Vital Signs Date Time Temp Pulse Resp B/P Pulse Ox O2 Delivery O2 Flow Rate FiO2 04/26/16 11:51 92 Nasal Cannula 3.0 04/26/16 10:35 99.0 18 108/41 99.0 04/26/16 09:00 82 Labs Labs Laboratory Tests Test 04/24/16 13:10 04/25/16 00:01 04/25/16 03:00 04/26/16 03:39 Prothrombin Time 39.3SEC (11.7-14.0) 24.2SEC (11.7-14.0) Prothromb Time International Ratio 4.3 (0.8-1.1) 2.3 (0.8-1.1) Troponin I Quantitative 0.020ng/mL (0.000-0.055) 0.019ng/mL (0.000-0.055) White Blood Count 7.4x10^3/uL (4.0-11.0) Red Blood Count 3.54x10^6/uL (4.30-5.70) Hemoglobin 9.3g/dL (13.0-17.5) Hematocrit 30.3% (39.0-53.0) Mean Corpuscular Volume 86fL (79-100) Mean Corpuscular Hemoglobin 26pg (25-35) Mean Corpuscular Hemoglobin Concent 31g/dL (31-37) Red Cell Distribution Width 14.7% (11.5-14.5) Platelet Count 217x10^3/uL (140-400) Neutrophils (%) (Auto) 68% (31-73) Lymphocytes (%) (Auto) 14% (24-48) Monocytes (%) (Auto) 17% (0-9) Eosinophils (%) (Auto) 0% (0-3) Basophils (%) (Auto) 1% (0-3) Neutrophils # (Auto) 5.0x10^3uL (1.8-7.7) Lymphocytes # (Auto) 1.1x10^3/uL (1.0-4.8) Monocytes # (Auto) 1.3x10^3/uL (0.0-1.1) Eosinophils # (Auto) 0.0x10^3/uL (0.0-0.7) Basophils # (Auto) 0.0x10^3/uL (0.0-0.2) Sodium Level 138mmol/L (136-145) 137mmol/L (136-145) Potassium Level 4.8mmol/L (3.5-5.1) 4.5mmol/L (3.5-5.1) Chloride Level 102mmol/L (98-107) 101mmol/L (98-107) Carbon Dioxide Level 23mmol/L (21-32) 24mmol/L (21-32) Anion Gap 13 (6-14) 12 (6-14) Blood Urea Nitrogen 14mg/dL (8-26) 19mg/dL (8-26) Creatinine 1.1mg/dL (0.7-1.3) 1.4mg/dL (0.7-1.3) Estimated GFR (Cockcroft-Gault) 84.4 63.9 Glucose Level 94mg/dL (70-99) 99mg/dL (70-99) Calcium Level 8.8mg/dL (8.5-10.1) 8.8mg/dL (8.5-10.1) Prostate Specific Antigen 0.57ng/mL (0.00-4.00) Laboratory Tests Test 04/26/16 03:39 Sodium Level 137mmol/L (136-145) Potassium Level 4.5mmol/L (3.5-5.1) Chloride Level 101mmol/L (98-107) Carbon Dioxide Level 24mmol/L (21-32) Anion Gap 12 (6-14) Blood Urea Nitrogen 19mg/dL (8-26) Creatinine 1.4mg/dL (0.7-1.3) Estimated GFR (Cockcroft-Gault) 63.9 Glucose Level 99mg/dL (70-99) Calcium Level 8.8mg/dL (8.5-10.1) Prostate Specific Antigen 0.57ng/mL (0.00-4.00) Assessment/Plan Assessment/Plan RIH, reducible CHF, Afib COPD coagulopathy (not on coumadin)-admission INR 5 ascites, US reports bidirectional flow to portal vein (? cirrhosis, would seem c /w with his coagulopathy and ascites)--would rec GI consult for work up consider elective repair of RIH once medically stable DENNISE LOZANO MD 04/26/16 1541: CONSULT Allergies Allergies: Coded Allergies: No Known Drug Allergies (Unverified , 09/15/15) Assessment/Plan Assessment/Plan agree with above no acute surgical recs will follow Thanks for consult YAMILET PENNINGTON APRN Apr 26, 2016 12:40 DENNISE LOZANO MD Apr 26, 2016 15:41
[2016-04-26 14:04] LABS: BILIRUBIN,URINE NEGATIVE (NEG); GLUCOSE,URINE NEGATIVE (NEG); NITRITE,URINE NEGATIVE (NEG); PROTEIN,URINE NEGATIVE (NEG-TRACE)
[2016-04-26 14:15] LABS: BACTERIA,URINE 0 /HPF (0-FEW); RBC,URINE 0 /HPF (0-2); WBC,URINE 0 /HPF (0-4)
[2016-04-26 14:35] VITALS: BP 98/55
--- NOTE | 2016-04-26 16:09 | RAD ---
Scrotal ultrasound, 04/26/2016: History: Right testicular swelling, hernia The right testicle measures 3.6 x 2.6 x 2.9 cm while the left testicle measures 3.7 x 2.2 x 2.2 cm. No testicular mass is seen. There is blood flow within both testicles. No epididymal abnormality is detected. There is a large right-sided hydrocele. Septations are evident within this fluid collection. There is a small amount of echogenic debris within the fluid. No herniated bowel is evident. A small left-sided varicocele is noted. There is a small amount of fluid in the left scrotal sac. IMPRESSION: 1. No testicular abnormality is detected. 2. Large, septated right hydrocele. 3. Small left varicocele
--- NOTE | 2016-04-26 16:55 | PDOC ---
Provider Note Provider Note Hem/Onc consult: 1. Coagulopathy due to xarelto, INR improved. OK to continue see dictation [id number] SELINA PATEL MD Apr 26, 2016 16:55
--- NOTE | 2016-04-26 17:27 | PDOC ---
CARDIO Progress Notes Date and Time Date of Service 04/26/16 Time of Evaluation 1605 Subjective Subjective: No Palpitations, No Dizziness, Other (CP with deep breath, scrotal/ abdominal edema, mild dyspnea-difficult to take a deep breath) Vitals Vitals Vital Signs Date Time Temp Pulse Resp B/P Pulse Ox O2 Delivery O2 Flow Rate FiO2 04/26/16 16:04 Nasal Cannula 3.0 04/26/16 14:35 99.1 62 20 98/55 95 99.1 Weight Weight [ ] Input and Output Intake and Output Intake and Output 04/26/16 07:00 Intake Total 2610 ml Output Total 850 ml Balance 1760 ml Intake Oral 2610 ml Output Urine Total 850 ml Laboratory Labs Laboratory Tests Test 04/26/16 03:39 04/26/16 13:55 Sodium Level 137mmol/L (136-145) Potassium Level 4.5mmol/L (3.5-5.1) Chloride Level 101mmol/L (98-107) Carbon Dioxide Level 24mmol/L (21-32) Anion Gap 12 (6-14) Blood Urea Nitrogen 19mg/dL (8-26) Creatinine 1.4mg/dL (0.7-1.3) Estimated GFR (Cockcroft-Gault) 63.9 Glucose Level 99mg/dL (70-99) Calcium Level 8.8mg/dL (8.5-10.1) Prostate Specific Antigen 0.57ng/mL (0.00-4.00) Urine Collection Type Unknown Urine Color Yellow Urine Clarity Clear Urine pH 5.0 Urine Specific [place] 1.010 Urine Protein Negativemg/dL (NEG-TRACE) Urine Glucose (UA) Negativemg/dL (NEG) Urine Ketones (Stick) Negativemg/dL (NEG) Urine Blood Negative (NEG) Urine Nitrite Negative (NEG) Urine Bilirubin Negative (NEG) Urine Urobilinogen Dipstick 1.0mg/dL (0.2 mg/dL) Urine Leukocyte Esterase Negative (NEG) Urine RBC 0/HPF (0-2) Urine WBC 0/HPF (0-4) Urine Bacteria 0/HPF (0-FEW) Urine Hyaline Casts Moderate/HPF Urine Mucus Mod/LPF Physical Exam HEENT: Neck Supple W Full Motion Chest: Symmetric LUNGS: Other (diminished bases) Heart: S1S2, RRR Abdomen: Other (distended, ascites, scrotal edema ) Extremities: Other (2+ pitting bilateral LE edema ) Neurology: alert, oriented, follow commands Assessment Assessment 1. Acute on chronic diastolic HF improved continue diuresis with monitoring of renal function am labs 2. chest pain, noncardiac pleuritic in nature worse with deep breath 3. PAFIB maintaining SR Xarelto held due to coagulopathy defer resumption to hematology 4. SSS s/p PPM recent device check shows normal function 5. Ascites US with hepatomegaly ? need for paracentesis 6. Coagulopathy INR 2.3 hematology following 7. ? cirrhosis given #4 and 5. 8. right inguinal hernia sx consulted EDWIN YANG APRN Apr 26, 2016 17:27
[2016-04-26 19:35] VITALS: BP 107/55
[2016-04-26] MEDS: LATANOPROST 0.005% OPHTH SOLUTION 2.5ML BOTTLE. OU SCH (21:41)
[2016-04-26] MEDS: PANTOPRAZOLE 40 MG TABLET. PO SCH (21:42)
[2016-04-26] MEDS: AMIODARONE HCL 200 MG TABLET PO SCH (21:42)
[2016-04-26] MEDS: MONTELUKAST SODIUM 10 MG TABLET. PO SCH (21:42)
[2016-04-26] MEDS: LOSARTAN POTASSIUM 25 MG TABLET. PO SCH (21:42)
[2016-04-26 23:10] VITALS: BP 104/58
--- NOTE | 2016-04-27 00:01 | CONS ---
DATE OF CONSULTATION: 04/26/2016 ATTENDING PHYSICIAN: Idris Roman MD REASON FOR CONSULTATION: The patient is seen in pulmonary consultation at the request of Dr. Roman for chest pain. HISTORY OF PRESENT ILLNESS: The patient is a 55-year-old that came in because of increasing chest discomfort, in the last 1-2 days, he had some increasing chest pain with deep inspiration. Most of the discomfort was across his left anterior chest wall. He denied fever, chills, had mild exertional dyspnea. No productive cough. He is normally on oxygen supplementation at home. PAST MEDICAL HISTORY: COPD, chronic AFib, previous pacemaker implantation, mild LV dysfunction with ejection fraction 35%, hypertension, presumed ASD repair as a young child. PAST SURGICAL HISTORY: Previous presumptive ASD repair as a young child. SOCIAL HISTORY: He is currently not working, quit tobacco approximately a year ago. FAMILY HISTORY: No family history of heart disease. REVIEW OF SYSTEMS: As indicated above, otherwise a 10-point system was reviewed and negative. CURRENT MEDICATIONS: List was reviewed. PHYSICAL EXAMINATION: VITAL SIGNS: The patient was in no respiratory distress, currently on 2 L of oxygen supplementation, saturation greater than 92%. HEENT: Eyes, the sclerae were nonicteric. NECK: Jugular venous distention was not elevated. No lymphadenopathy. CHEST: Full expansion. LUNGS: Slight crackles, no wheezes. CARDIOVASCULAR: Regular rate and rhythm with S1, S2, no S3. ABDOMEN: Soft, nontender, nondistended. EXTREMITIES: No clubbing, cyanosis. Minimal edema. NEUROLOGIC: The patient was awake, alert, following commands. A detailed neuro exam was not performed. LABORATORY DATA: Reviewed. Electrolytes were reviewed. INR was initially elevated. Chest x-ray was reviewed from the . There was some possible minimal retrocardiac atelectasis and/or infiltrate. IMPRESSION: 1. Abnormal x-ray compatible with atelectasis. 2. Chest pain, suspect pleurisy. 3. Chronic hypoxemic respiratory failure. 4. Chronic obstructive pulmonary disease. 5. Acute on chronic ____ diastolic heart failure. PLAN: 1. Recommend to continue current medical management. 2. P.r.n. Motrin. 3. Incentive spirometry. 4. Diurese. 5. Follow Cardiology input. I do appreciate the privilege in sharing in this patient's care. ASHLEY FERNANDO MD DR: Miguel JOB#: [id number] / [id number]
--- NOTE | 2016-04-27 00:20 | CONS ---
DATE OF CONSULTATION: 04/26/2016 PATIENT'S ROOM: 208. HISTORY OF PRESENT ILLNESS: The patient is a very pleasant 55-year-old -[place] male who was admitted with shortness of breath and heart failure. The patient also has several week history of right inguinal hernia, also has a history of some right groin swelling. PAST MEDICAL HISTORY: Significant for atrial fibrillation, he is on Xarelto. History of cardioversion in the past, diastolic heart failure, pulmonary hypertension, VSD repair as a child, COPD, iron deficiency anemia, hemorrhoids, reflux, arthritis, chronic renal insufficiency stage 2. PAST SURGICAL HISTORY: VSD repair as a child. He has a pacemaker. MEDICATIONS: The patient is on amiodarone, Tessalon Perles, digoxin, Lasix, losartan, Singulair, Protonix, MiraLax, Xarelto and Travatan. ALLERGIES: The patient has no known drug allergies. LABORATORY DATA: The patient's creatinine on admission was 1.1. Hemoglobin 9.3. The patient's INR on admission was 5.0. PHYSICAL EXAMINATION: ABDOMEN: Distended. The patient has moderate ascites on ultrasound. GENITOURINARY: Phallus within normal limits. Left testicle is normally descended. The patient has a right-sided hydrocele, which is nontender. When the patient stands, he has a right inguinal hernia and also has a hernia hydrocele as the hydrocele gets bigger with him standing. RECTAL: The patient has external and internal hemorrhoids. Good sphincter tone. Prostate smooth without any obvious nodules, but it is hard to get a good feel of the prostate because of the internal hemorrhoids also, overall size ____ the prostate. ASSESSMENT: Right hernia, hydrocele. We will consult General Surgery for this, also we will get a scrotal ultrasound on the patient, also we will get a PSA and urinalysis on the patient and then have him follow up with Urology in 1 month. I certainly appreciate being allowed to participate in this patient's care. PRICE KOVACS MD DR: TRINIDAD/taiwo JOB#: [id number] / [id number]
[2016-04-27 03:20] VITALS: BP 100/58
[2016-04-27 04:17] LABS: CALCIUM 8.7 mg/dL (8.5-10.1); CREATININE 1.2 mg/dL (0.7-1.3); GFR 76.3; MAGNESIUM 2.1 mg/dL (1.8-2.4); POTASSIUM 4.7 mmol/L (3.5-5.1)
[2016-04-27 04:18] LABS: BASO % 0 % (0-3); EOS % 1 % (0-3); HEMOGLOBIN 8.7 g/dL (13.0-17.5); LYMPH # 0.9 x10^3/uL (1.0-4.8); LYMPH % 15 % (24-48); MEAN CORPUSCULAR HEMOGLOBIN 26 pg (25-35); MEAN CORPUSCULAR HGB CONC 31 g/dL (31-37); MEAN CORPUSCULAR VOLUME 85 fL (79-100); MONO % 19 % (0-9); NEUT % 65 % (31-73); PLATELET COUNT 225 x10^3/uL (140-400); RED BLOOD COUNT 3.31 x10^6/uL (4.30-5.70); RED CELL DISTRIBUTION WIDTH 14.4 % (11.5-14.5); WHITE BLOOD COUNT 6.5 x10^3/uL (4.0-11.0)
--- NOTE | 2016-04-27 04:31 | CONS ---
DATE OF CONSULTATION: 04/26/2016 REQUESTING PHYSICIAN: Dr. Idris Roman. REASON FOR CONSULTATION: Coagulopathy. HISTORY OF PRESENT ILLNESS: The patient is a 55-year-old -[place] gentleman who was admitted to [facility] on 04/25/2016 with complaints of shortness of breath and chest pain. He was evaluated by Cardiology and he was thought to have combined diastolic and systolic heart failure. He was given Lasix. He does have a history of atrial fibrillation and he is on Xarelto. His PT was 44.1 and INR 5.0 on 04/24/2016 and on 04/25/2016, INR was 2.3. I was asked to see the patient for further evaluation of coagulopathy. Review of the old records indicates that his INR has been elevated since 2013. On 09/24/2013, it was 2.7. He has occasional nosebleeds. No gum bleeding. No hematemesis or melena. He has occasional blood in the stools due to hemorrhoids. He denies hematemesis. No history of easy bruisability. PAST MEDICAL HISTORY: Atrial fibrillation, he is on Xarelto, history of cardioversion in the past, diastolic heart failure, pulmonary hypertension, VSD repair as a child, COPD, iron deficiency, hemorrhoids, reflux, arthritis, chronic renal insufficiency stage 2. FAMILY HISTORY: Positive for diabetes and heart disease. SOCIAL HISTORY: He has smoked for 30 years. He quit in 2015. He also has a history of alcohol. He drinks 6-12 beers a day. REVIEW OF SYSTEMS: A 12-point review of systems was performed. Pertinent positives are mentioned in the history of present illness. Rest of the system review is negative. PHYSICAL EXAMINATION: GENERAL APPEARANCE: The patient is a 55-year-old gentleman who is well-developed, well-nourished and in no acute cardiorespiratory distress. VITAL SIGNS: Blood pressure 98/55, temperature 99.1. HEENT: Head atraumatic, normocephalic. Eyes: No icterus. NECK: Supple. CHEST: Bilaterally symmetrical. HEART: S1, S2 normal. ABDOMEN: Soft, nontender. Abdomen is distended due to ascites. CENTRAL NERVOUS SYSTEM: No focal deficits. LYMPHATICS: No lymphadenopathy. SKIN: No rashes. PSYCHOLOGIC: Mood and affect are appropriate. LABORATORY DATA: On 04/24/2016, PT 44.1, INR 5.0 and on 04/25/2016, INR is 2.3. Total bilirubin 0.8, direct bilirubin 0.4, AST 34, ALT 25, alkaline phosphatase 229. BNP 1681. WBC 7.4, hemoglobin 9.3, platelet count 217. RADIOLOGICAL STUDIES: Ultrasound of the abdomen on 04/25/2016 revealed moderate ascites, mild hepatomegaly. IMPRESSION AND PLAN: 1. Coagulopathy due to Xarelto. Elevated PT and INR is expected with Xarelto. However, the INR was worse at 5.0 on 04/24/2016, but has now improved to 2.3 on 04/25/2016. Hence, I would not recommend any changes to the Xarelto and I would continue the same and monitor for bleeding tendencies. He does have a history of heavy alcohol abuse and radiological studies have revealed hepatomegaly. I suspect that he may also have alcohol-related liver disease. 2. Atrial fibrillation. He is on Xarelto. 3. Congestive heart failure, management per Cardiology. SELINA PATEL MD DR: ANTONIO/taiwo JOB#: [id number] / [id number] SUN
[2016-04-27 07:15] VITALS: BP 97/52
[2016-04-27 07:34] LABS: PLT ESTIMATE ADEQUATE (ADEQUATE)
--- NOTE | 2016-04-27 08:00 | PDOC3 ---
FIOR PACHECO JIG INSPECTOR 04/27/16 0800: IM DISCHARGE & PROGRESS NOTES Date of Admission Date of Admission Date of Admission: Apr 24, 2016 at 10:57 Date of Discharge Date of Discharge 04/27/16 Primary Diagnosis Primary Diagnosis IMPRESSION: 1. Chest pain-pleuritic, not reproducible with palpation chest wall 2. A/C systolic diastolic CHF EF 45% 3. Pulmonary hypertension mod to severe 4. History of ventricular septal defect repair. as child 5. History of pacemaker Biotronik dual chamber 6. Atrial fibrillation, chronic, on Xarelto for anticoagulation. 7. Anemia secondary to iron deficiency. 8. CKD II 9. History of smoking until recently, 6 months ago stopped. 10. COPD 11. depression 12. coagulopathy secondary to medication POA` 13, R inguinal hernia-reducible POA 14. R hydrocele POA 15. L varicocele small POA 16 hepatomegaly with suspected cirrhosis liver POA Consults Consults Cornelius Dominguez MD, Dr., Dr., Dr., Dr. Procedures Procedures None Labs Labs Laboratory Tests Test 04/24/16 09:40 04/24/16 13:10 04/25/16 00:01 04/25/16 03:00 White Blood Count 6.3x10^3/uL (4.0-11.0) 7.4x10^3/uL (4.0-11.0) Red Blood Count 3.71x10^6/uL (4.30-5.70) 3.54x10^6/uL (4.30-5.70) Hemoglobin 9.9g/dL (13.0-17.5) 9.3g/dL (13.0-17.5) Hematocrit 31.3% (39.0-53.0) 30.3% (39.0-53.0) Mean Corpuscular Volume 84fL (79-100) 86fL (79-100) Mean Corpuscular Hemoglobin 27pg (25-35) 26pg (25-35) Mean Corpuscular Hemoglobin Concent 32g/dL (31-37) 31g/dL (31-37) Red Cell Distribution Width 15.1% (11.5-14.5) 14.7% (11.5-14.5) Platelet Count 223x10^3/uL (140-400) 217x10^3/uL (140-400) Neutrophils (%) (Auto) 68% (31-73) 68% (31-73) Lymphocytes (%) (Auto) 18% (24-48) 14% (24-48) Monocytes (%) (Auto) 13% (0-9) 17% (0-9) Eosinophils (%) (Auto) 0% (0-3) 0% (0-3) Basophils (%) (Auto) 1% (0-3) 1% (0-3) Neutrophils # (Auto) 4.2x10^3uL (1.8-7.7) 5.0x10^3uL (1.8-7.7) Lymphocytes # (Auto) 1.1x10^3/uL (1.0-4.8) 1.1x10^3/uL (1.0-4.8) Monocytes # (Auto) 0.8x10^3/uL (0.0-1.1) 1.3x10^3/uL (0.0-1.1) Eosinophils # (Auto) 0.0x10^3/uL (0.0-0.7) 0.0x10^3/uL (0.0-0.7) Basophils # (Auto) 0.0x10^3/uL (0.0-0.2) 0.0x10^3/uL (0.0-0.2) Prothrombin Time 44.1SEC (11.7-14.0) 39.3SEC (11.7-14.0) 24.2SEC (11.7-14.0) Prothromb Time International Ratio 5.0 (0.8-1.1) 4.3 (0.8-1.1) 2.3 (0.8-1.1) Sodium Level 141mmol/L (136-145) 138mmol/L (136-145) Potassium Level 4.1mmol/L (3.5-5.1) 4.8mmol/L (3.5-5.1) Chloride Level 106mmol/L (98-107) 102mmol/L (98-107) Carbon Dioxide Level 21mmol/L (21-32) 23mmol/L (21-32) Anion Gap 14 (6-14) 13 (6-14) Blood Urea Nitrogen 16mg/dL (8-26) 14mg/dL (8-26) Creatinine 1.1mg/dL (0.7-1.3) 1.1mg/dL (0.7-1.3) Estimated GFR (Cockcroft-Gault) 84.4 84.4 Glucose Level 135mg/dL (70-99) 94mg/dL (70-99) Calcium Level 8.8mg/dL (8.5-10.1) 8.8mg/dL (8.5-10.1) Magnesium Level 1.9mg/dL (1.8-2.4) Total Bilirubin 0.8mg/dL (0.2-1.0) Direct Bilirubin 0.4mg/dL (0.0-0.2) Aspartate Amino Transf (AST/SGOT) 34U/L (15-37) Alanine Aminotransferase (ALT/SGPT) 25U/L (16-63) Alkaline Phosphatase 229U/L (46-116) Creatine Kinase 59U/L (39-308) Creatine Kinase MB (Mass) 0.5ng/mL (0.0-3.6) Creatine Kinase MB Relative Index % (0-4) Troponin I Quantitative 0.018ng/mL (0.000-0.055) 0.020ng/mL (0.000-0.055) 0.019ng/mL (0.000-0.055) NO-Uqt-B-Type Natriuretic Peptide 1681pg/mL (0-124) Total Protein 7.2g/dL (6.4-8.2) Albumin 2.9g/dL (3.4-5.0) Test 04/26/16 03:39 04/26/16 13:55 04/27/16 03:30 Sodium Level 137mmol/L (136-145) 135mmol/L (136-145) Potassium Level 4.5mmol/L (3.5-5.1) 4.7mmol/L (3.5-5.1) Chloride Level 101mmol/L (98-107) 99mmol/L (98-107) Carbon Dioxide Level 24mmol/L (21-32) 26mmol/L (21-32) Anion Gap 12 (6-14) 10 (6-14) Blood Urea Nitrogen 19mg/dL (8-26) 21mg/dL (8-26) Creatinine 1.4mg/dL (0.7-1.3) 1.2mg/dL (0.7-1.3) Estimated GFR (Cockcroft-Gault) 63.9 76.3 Glucose Level 99mg/dL (70-99) 88mg/dL (70-99) Calcium Level 8.8mg/dL (8.5-10.1) 8.7mg/dL (8.5-10.1) Prostate Specific Antigen 0.57ng/mL (0.00-4.00) Urine Collection Type Unknown Urine Color Yellow Urine Clarity Clear Urine pH 5.0 Urine Specific [place] 1.010 Urine Protein Negativemg/dL (NEG-TRACE) Urine Glucose (UA) Negativemg/dL (NEG) Urine Ketones (Stick) Negativemg/dL (NEG) Urine Blood Negative (NEG) Urine Nitrite Negative (NEG) Urine Bilirubin Negative (NEG) Urine Urobilinogen Dipstick 1.0mg/dL (0.2 mg/dL) Urine Leukocyte Esterase Negative (NEG) Urine RBC 0/HPF (0-2) Urine WBC 0/HPF (0-4) Urine Bacteria 0/HPF (0-FEW) Urine Hyaline Casts Moderate/HPF Urine Mucus Mod/LPF White Blood Count 6.5x10^3/uL (4.0-11.0) Red Blood Count 3.31x10^6/uL (4.30-5.70) Hemoglobin 8.7g/dL (13.0-17.5) Hematocrit 28.0% (39.0-53.0) Mean Corpuscular Volume 85fL (79-100) Mean Corpuscular Hemoglobin 26pg (25-35) Mean Corpuscular Hemoglobin Concent 31g/dL (31-37) Red Cell Distribution Width 14.4% (11.5-14.5) Platelet Count 225x10^3/uL (140-400) Neutrophils (%) (Auto) 65% (31-73) Lymphocytes (%) (Auto) 15% (24-48) Monocytes (%) (Auto) 19% (0-9) Eosinophils (%) (Auto) 1% (0-3) Basophils (%) (Auto) 0% (0-3) Neutrophils # (Auto) 4.2x10^3uL (1.8-7.7) Lymphocytes # (Auto) 0.9x10^3/uL (1.0-4.8) Monocytes # (Auto) 1.3x10^3/uL (0.0-1.1) Eosinophils # (Auto) 0.1x10^3/uL (0.0-0.7) Basophils # (Auto) 0.0x10^3/uL (0.0-0.2) Segmented Neutrophils % 65% (35-66) Band Neutrophils % 1% (0-9) Lymphocytes % 17% (24-48) Atypical Lymphocytes % (Manual) 1% (0-0) Monocytes % 16% (0-10) Platelet Estimate Adequate (ADEQUATE) Magnesium Level 2.1mg/dL (1.8-2.4) Medications Medications Medications reviewed and reconciled for discharge. Brief hospital course Brief hospital course This 55 year old male who presented with chest pain was admitted. The following is a summary of his treatment: PLAN: chest pain EKG old infarct had been off xarelto for 2 weeks last month pain chest worse with DB, not reproducible with chest wall palpation cardiology consult +pleuritic consult pulmonary CHF, combined acute Admit wt 207# 04/26 213.13# IO Daily weight Lasix 40mg IV bid-change to po at discharge depression Had stopped taking medications. Taking medications again and actively involved in medical care. monitor CKD III Admit BUN 16 04/27 21 Cr 1.1 1.2 K 4.1 4.7 not acute RF-due to diuresis acute CHF monitor AF xarelto -coagulopathy on admission Admit INR 5.0 04/25 2.3 consult hematology for recommendations regarding anticoagulation -?continue xarelto at reduced dose/?change med DVT/GI prophylaxis SCD/PARK PPI R hydrocele consulted-R inguinal hernia source of hydrocele surgical consult-no surgical intervention-medically manage hepatomegaly with ascites suspect cirrhosis of liver GI consult out patient For further plan of care, please refer to the orders. For more details regarding the past history, family history, social history, surgical history and other details, please refer to History and Physical. Subjective pain L sided chest with DB, no pain with palpation. abdomen still swollen, not decreasing. Objective no distress Vitals Vital Signs Date Time Temp Pulse Resp B/P Pulse Ox O2 Delivery O2 Flow Rate FiO2 04/27/16 03:20 98.6 74 20 100/58 94 Nasal Cannula 4.0 98.6 Physical Exam General appearance - alert chronically ill appearing, and in no distress Mental Status - alert, oriented to person, place, and time, affect appropriate to mood Head - normal Chest - clear to auscultation, no wheezes, rales or rhonchi, symmetric air entry Heart - S1 and S2 normal Abdomen - soft, nontender, + ascites distended, BS+ Gu: R testicular swelling, non tender Neurological - no acute focal neurological deficit noted Musculoskeletal - no muscular tenderness noted Extremities - no pedal edema Skin - warm and dry Medications Medications reviewed. Allergy Allergies Coded Allergies Type Severity Reaction Last Updated Verified No Known Drug Allergies 09/15/[address] Nixon in 3 to 5 days Disposition: Home Comments Discharge Management - 35 minutes. For other details please refer to discharge instructions CHAVA NIXON MD 04/27/16 1057: IM DISCHARGE & PROGRESS NOTES Brief hospital course Brief hospital course Hematology note- continue Xarelto and monitor. Observe rt hydrocele and inguinal hernia.d/w and patient. The patient was seen and examined by me. Chart reviewed and plan of care formulated. Discussed with, reviewed and agree with LUMBER PILER's notes, plan of care and orders with modifications as necessary. Discharge Management - 35 minutes. see in office in 5 days. FIOR PACHECO APRN Apr 27, 2016 08:00 CHAVA NIXON MD Apr 27, 2016 10:57
--- NOTE | 2016-04-27 08:01 | DISCH ---
DISCHARGE INSTRUCTIONS Condition on Discharge Condition on Discharge: Stable Activity After Discharge Activity Instructions for Disc: Activity as tolerated Diet after Discharge Diet after Discharge: Cardiac Checks after Discharge Checks after discharge: Weigh Yourself Daily Contacting the [facility] after DC Call your doctor for: Concerns you may have Follow-Up Follow up with: Dr. Roman 3-5 days FIOR PACHECO APRN Apr 27, 2016 08:01
[2016-04-27] MEDS ORDERED: FURO-68 PO (08:03)
[2016-04-27] MEDS: IPRATRPIUM/ALBUTEROL 0.5/2.5MG 3 ML NEBU. NEB SCH ×2 (08:15→11:20)
--- NOTE | 2016-04-27 08:44 | PDOC ---
SUBJECTIVE Subjective Pt. feeling ok OBJECTIVE Objective septated right hydrocele on sono Vital Signs Vital Signs Date Time Temp Pulse Resp B/P Pulse Ox O2 Delivery O2 Flow Rate FiO2 04/27/16 08:16 92 Nasal Cannula 4.0 04/27/16 07:15 98.6 76 18 97/52 93 Nasal Cannula 4.0 98.6 04/27/16 03:20 98.6 74 20 100/58 94 Nasal Cannula 4.0 98.6 04/26/16 23:10 98.2 77 20 104/58 91 Nasal Cannula 4.0 98.2 04/26/16 21:42 80 107/55 04/26/16 21:42 88 107/55 04/26/16 20:00 Nasal Cannula 3.0 04/26/16 19:41 91 Nasal Cannula 3.0 04/26/16 19:35 97.6 90 20 107/55 92 Nasal Cannula 4.0 97.6 04/26/16 16:04 Nasal Cannula 3.0 04/26/16 14:35 99.1 62 20 98/55 95 Nasal Cannula 3.0 99.1 04/26/16 11:51 92 Nasal Cannula 3.0 04/26/16 10:35 99.0 18 108/41 94 Nasal Cannula 3.0 99.0 04/26/16 10:00 94 Nasal Cannula 3.0 04/26/16 09:00 82 108/41 04/26/16 08:57 82 98/68 04/26/16 08:55 91 Nasal Cannula 3.0 I & O Intake and Output 04/27/16 07:00 Intake Total 2700 ml Output Total 400 ml Balance 2300 ml Intake Oral 2700 ml Output Urine Total 400 ml PHYSICAL EXAM Physical Exam right inguinal hernia addressed by general surgery ASSESSMENT/PLAN Assessment/Plan no further recommendations on hydrocele. asymptomatic f/u urology 1 month Problems: COMMENT Lab Laboratory Tests Test 04/26/16 13:55 04/27/16 03:30 Urine Collection Type Unknown Urine Color Yellow Urine Clarity Clear Urine pH 5.0 Urine Specific [place] 1.010 Urine Protein Negativemg/dL (NEG-TRACE) Urine Glucose (UA) Negativemg/dL (NEG) Urine Ketones (Stick) Negativemg/dL (NEG) Urine Blood Negative (NEG) Urine Nitrite Negative (NEG) Urine Bilirubin Negative (NEG) Urine Urobilinogen Dipstick 1.0mg/dL (0.2 mg/dL) Urine Leukocyte Esterase Negative (NEG) Urine RBC 0/HPF (0-2) Urine WBC 0/HPF (0-4) Urine Bacteria 0/HPF (0-FEW) Urine Hyaline Casts Moderate/HPF Urine Mucus Mod/LPF White Blood Count 6.5x10^3/uL (4.0-11.0) Red Blood Count 3.31x10^6/uL (4.30-5.70) Hemoglobin 8.7g/dL (13.0-17.5) Hematocrit 28.0% (39.0-53.0) Mean Corpuscular Volume 85fL (79-100) Mean Corpuscular Hemoglobin 26pg (25-35) Mean Corpuscular Hemoglobin Concent 31g/dL (31-37) Red Cell Distribution Width 14.4% (11.5-14.5) Platelet Count 225x10^3/uL (140-400) Neutrophils (%) (Auto) 65% (31-73) Lymphocytes (%) (Auto) 15% (24-48) Monocytes (%) (Auto) 19% (0-9) Eosinophils (%) (Auto) 1% (0-3) Basophils (%) (Auto) 0% (0-3) Neutrophils # (Auto) 4.2x10^3uL (1.8-7.7) Lymphocytes # (Auto) 0.9x10^3/uL (1.0-4.8) Monocytes # (Auto) 1.3x10^3/uL (0.0-1.1) Eosinophils # (Auto) 0.1x10^3/uL (0.0-0.7) Basophils # (Auto) 0.0x10^3/uL (0.0-0.2) Segmented Neutrophils % 65% (35-66) Band Neutrophils % 1% (0-9) Lymphocytes % 17% (24-48) Atypical Lymphocytes % (Manual) 1% (0-0) Monocytes % 16% (0-10) Platelet Estimate Adequate (ADEQUATE) Sodium Level 135mmol/L (136-145) Potassium Level 4.7mmol/L (3.5-5.1) Chloride Level 99mmol/L (98-107) Carbon Dioxide Level 26mmol/L (21-32) Anion Gap 10 (6-14) Blood Urea Nitrogen 21mg/dL (8-26) Creatinine 1.2mg/dL (0.7-1.3) Estimated GFR (Cockcroft-Gault) 76.3 Glucose Level 88mg/dL (70-99) Calcium Level 8.7mg/dL (8.5-10.1) Magnesium Level 2.1mg/dL (1.8-2.4) PRICE KOVACS MD Apr 27, 2016 08:44
[2016-04-27] MEDS: POTASSIUM CHLORIDE 20 MEQ TABLET.ER. PO SCH (08:45)
[2016-04-27] MEDS: DIGOXIN 125 MCG TABLET PO SCH (08:45)
[2016-04-27] MEDS: FUROSEMIDE 40 MG/4 ML VIAL IVP SCH (08:45)
[2016-04-27] MEDS: FERROUS SULFATE 325 MG TABLET PO SCH (08:46)
[2016-04-27] MEDS: BENZONATATE 100 MG CAPSULE. PO SCH (08:46)
[2016-04-27] MEDS: SPIRONOLACTONE 25 MG TABLET PO SCH (08:51)
[2016-04-27] MEDS: POLYETHYLENE GLYCOL 3350 17 GM PACKET. PO SCH (09:00)
--- NOTE | 2016-04-27 10:24 | PDOC ---
PROGRESS NOTES Subjective Subjective c/c - f/u of Coagulopathy due to Xarelto Objective Objective Vital Signs Date Time Temp Pulse Resp B/P Pulse Ox O2 Delivery O2 Flow Rate FiO2 04/27/16 08:45 76 97/52 04/27/16 08:16 92 Nasal Cannula 4.0 04/27/16 07:15 98.6 18 98.6 Intake and Output 04/27/16 07:00 Intake Total 2700 ml Output Total 400 ml Balance 2300 ml Intake Oral 2700 ml Output Urine Total 400 ml Physical Exam Heart: Normal S1, Normal S2 General: Alert, Oriented X3 Lungs: Clear to auscultation Psych/Mental Status: Mental status NL Assessment Assessment Problems Medical Problems: (1) Chest pain Status: Acute (2) Congestive heart failure Status: Acute (3) COPD (chronic obstructive pulmonary disease) Status: Acute (4) Moderate protein malnutrition Status: Acute IMPRESSION AND PLAN: 1. Coagulopathy due to Xarelto. Elevated PT and INR is expected with Xarelto. However, the INR was worse at 5.0 on 04/24/2016, but has now improved to 2.3 on 04/25/2016. Hence, I would not recommend any changes to the Xarelto and I would continue the same and monitor for bleeding. No bleeding 2. Atrial fibrillation. He is on Xarelto. 3. Congestive heart failure, management per Cardiology. Comment Review of Relevant I have reviewed the following items [email or web address] (where applicable) has been applied. Labs Laboratory Tests Test 04/26/16 03:39 04/26/16 13:55 04/27/16 03:30 Sodium Level 137mmol/L (136-145) 135mmol/L (136-145) Potassium Level 4.5mmol/L (3.5-5.1) 4.7mmol/L (3.5-5.1) Chloride Level 101mmol/L (98-107) 99mmol/L (98-107) Carbon Dioxide Level 24mmol/L (21-32) 26mmol/L (21-32) Anion Gap 12 (6-14) 10 (6-14) Blood Urea Nitrogen 19mg/dL (8-26) 21mg/dL (8-26) Creatinine 1.4mg/dL (0.7-1.3) 1.2mg/dL (0.7-1.3) Estimated GFR (Cockcroft-Gault) 63.9 76.3 Glucose Level 99mg/dL (70-99) 88mg/dL (70-99) Calcium Level 8.8mg/dL (8.5-10.1) 8.7mg/dL (8.5-10.1) Prostate Specific Antigen 0.57ng/mL (0.00-4.00) Urine Collection Type Unknown Urine Color Yellow Urine Clarity Clear Urine pH 5.0 Urine Specific [place] 1.010 Urine Protein Negativemg/dL (NEG-TRACE) Urine Glucose (UA) Negativemg/dL (NEG) Urine Ketones (Stick) Negativemg/dL (NEG) Urine Blood Negative (NEG) Urine Nitrite Negative (NEG) Urine Bilirubin Negative (NEG) Urine Urobilinogen Dipstick 1.0mg/dL (0.2 mg/dL) Urine Leukocyte Esterase Negative (NEG) Urine RBC 0/HPF (0-2) Urine WBC 0/HPF (0-4) Urine Bacteria 0/HPF (0-FEW) Urine Hyaline Casts Moderate/HPF Urine Mucus Mod/LPF White Blood Count 6.5x10^3/uL (4.0-11.0) Red Blood Count 3.31x10^6/uL (4.30-5.70) Hemoglobin 8.7g/dL (13.0-17.5) Hematocrit 28.0% (39.0-53.0) Mean Corpuscular Volume 85fL (79-100) Mean Corpuscular Hemoglobin 26pg (25-35) Mean Corpuscular Hemoglobin Concent 31g/dL (31-37) Red Cell Distribution Width 14.4% (11.5-14.5) Platelet Count 225x10^3/uL (140-400) Neutrophils (%) (Auto) 65% (31-73) Lymphocytes (%) (Auto) 15% (24-48) Monocytes (%) (Auto) 19% (0-9) Eosinophils (%) (Auto) 1% (0-3) Basophils (%) (Auto) 0% (0-3) Neutrophils # (Auto) 4.2x10^3uL (1.8-7.7) Lymphocytes # (Auto) 0.9x10^3/uL (1.0-4.8) Monocytes # (Auto) 1.3x10^3/uL (0.0-1.1) Eosinophils # (Auto) 0.1x10^3/uL (0.0-0.7) Basophils # (Auto) 0.0x10^3/uL (0.0-0.2) Segmented Neutrophils % 65% (35-66) Band Neutrophils % 1% (0-9) Lymphocytes % 17% (24-48) Atypical Lymphocytes % (Manual) 1% (0-0) Monocytes % 16% (0-10) Platelet Estimate Adequate (ADEQUATE) Magnesium Level 2.1mg/dL (1.8-2.4) Laboratory Tests Test 04/26/16 13:55 04/27/16 03:30 Urine Collection Type Unknown Urine Color Yellow Urine Clarity Clear Urine pH 5.0 Urine Specific [place] 1.010 Urine Protein Negativemg/dL (NEG-TRACE) Urine Glucose (UA) Negativemg/dL (NEG) Urine Ketones (Stick) Negativemg/dL (NEG) Urine Blood Negative (NEG) Urine Nitrite Negative (NEG) Urine Bilirubin Negative (NEG) Urine Urobilinogen Dipstick 1.0mg/dL (0.2 mg/dL) Urine Leukocyte Esterase Negative (NEG) Urine RBC 0/HPF (0-2) Urine WBC 0/HPF (0-4) Urine Bacteria 0/HPF (0-FEW) Urine Hyaline Casts Moderate/HPF Urine Mucus Mod/LPF White Blood Count 6.5x10^3/uL (4.0-11.0) Red Blood Count 3.31x10^6/uL (4.30-5.70) Hemoglobin 8.7g/dL (13.0-17.5) Hematocrit 28.0% (39.0-53.0) Mean Corpuscular Volume 85fL (79-100) Mean Corpuscular Hemoglobin 26pg (25-35) Mean Corpuscular Hemoglobin Concent 31g/dL (31-37) Red Cell Distribution Width 14.4% (11.5-14.5) Platelet Count 225x10^3/uL (140-400) Neutrophils (%) (Auto) 65% (31-73) Lymphocytes (%) (Auto) 15% (24-48) Monocytes (%) (Auto) 19% (0-9) Eosinophils (%) (Auto) 1% (0-3) Basophils (%) (Auto) 0% (0-3) Neutrophils # (Auto) 4.2x10^3uL (1.8-7.7) Lymphocytes # (Auto) 0.9x10^3/uL (1.0-4.8) Monocytes # (Auto) 1.3x10^3/uL (0.0-1.1) Eosinophils # (Auto) 0.1x10^3/uL (0.0-0.7) Basophils # (Auto) 0.0x10^3/uL (0.0-0.2) Segmented Neutrophils % 65% (35-66) Band Neutrophils % 1% (0-9) Lymphocytes % 17% (24-48) Atypical Lymphocytes % (Manual) 1% (0-0) Monocytes % 16% (0-10) Platelet Estimate Adequate (ADEQUATE) Sodium Level 135mmol/L (136-145) Potassium Level 4.7mmol/L (3.5-5.1) Chloride Level 99mmol/L (98-107) Carbon Dioxide Level 26mmol/L (21-32) Anion Gap 10 (6-14) Blood Urea Nitrogen 21mg/dL (8-26) Creatinine 1.2mg/dL (0.7-1.3) Estimated GFR (Cockcroft-Gault) 76.3 Glucose Level 88mg/dL (70-99) Calcium Level 8.7mg/dL (8.5-10.1) Magnesium Level 2.1mg/dL (1.8-2.4) Medications Current Medications Aspirin (Children'S Aspirin) 324 mg 1X ONCE PO Last administered on 04/24/16 09:47; Start 04/24/16 at 09:30; Stop 04/24/16 at 09:35; Status DC Fentanyl Citrate 50 mcg 50 mcg PRN Q15MIN PRN IV PAIN GREATER THAN 3/10 Last administered on 04/24/16 09:52; Start 04/24/16 at 09:30; Stop 04/25/16 at 09:29 ; Status DC Sodium Chloride (Iv Sodium Chloride 0.9% 1000ml Bag) 1,000 ml @ 75 mls/hr [id number] IV Last administered on 04/24/16 09:46; Start 04/24/16 at 09:21; Stop 04/24/16 at 12:39; Status DC Ondansetron HCl (Zofran) 4 mg 1X ONCE IV Last administered on 04/24/16 09:50 ; Start 04/24/16 at 09:30; Stop 04/24/16 at 09:35; Status DC Ondansetron HCl (Zofran) 4 mg PRN Q8HRS PRN IV NAUSEA/VOMITING; Start 04/24/16 at 11:00; Stop 04/25/16 at 10:59; Status DC Fentanyl Citrate (Fentanyl 2ml Vial) 50 mcg PRN Q2HR PRN IV PAIN Last administered on 04/25/16 07:54; Start 04/24/16 at 11:00; Stop 04/25/16 at 10:59 ; Status DC Acetaminophen (Tylenol) 650 mg PRN Q4HRS PRN PO FEVER; Start 04/24/16 at 11:00 ; Stop 04/25/16 at 10:59; Status DC Albuterol/ Ipratropium (Duoneb) 3 ml RTQID NEB Last administered on 04/25/16 08:04; Start 04/24/16 at 12:00; Stop 04/25/16 at 11:59; Status DC Amiodarone HCl (Cordarone) 200 mg HS PO Last administered on 04/26/16 21:42; Start 04/24/16 at 21:00 Benzonatate (Tessalon Perle) 100 mg TID PO Last administered on 04/27/16 08:46 ; Start 04/24/16 at 14:00 Digoxin (Lanoxin) 125 mcg DAILY PO Last administered on 04/27/16 08:45; Start 04/24/16 at 13:00 Ferrous Sulfate (Feosol) 325 mg DAILY PO Last administered on 04/27/16 08:46; Start 04/24/16 at 13:00 Furosemide (Lasix) 40 mg DAILY PO Last administered on 04/25/16 10:50; Start 04/24/16 at 13:00; Stop 04/25/16 at 14:09; Status DC Losartan Potassium (Cozaar) 25 mg HS PO Last administered on 04/26/16 21:42; Start 04/24/16 at 21:00 Metoprolol Succinate (Toprol Xl) 25 mg DAILY PO ; Start 04/24/16 at 13:00 Montelukast Sodium (Singulair) 10 mg HS PO Last administered on 04/26/16 21:42 ; Start 04/24/16 at 21:00 Pantoprazole Sodium (Protonix) 40 mg QHS PO Last administered on 04/26/16 21: 42; Start 04/24/16 at 21:00 Polyethylene Glycol (miraLAX PACKET) 17 gm DAILY PO Last administered on 09:00; Start 04/24/16 at 14:00 Potassium Chloride (Klor-Con) 20 meq DAILYWBKFT PO Last administered on 16:05; Start 04/24/16 at 14:00; Stop 04/26/16 at 07:41; Status DC Rivaroxaban (Xarelto) 20 mg DAILYWSUP PO ; Start 04/24/16 at 17:00; Stop at 09:32; Status DC Spironolactone (Aldactone) 25 mg DAILY PO Last administered on 04/27/16 08:51 ; Start 04/24/16 at 14:00 Furosemide (Lasix) 40 mg 1X ONCE IVP Last administered on 04/24/16 16:06; Start 04/24/16 at 14:00; Stop 04/24/16 at 14:14; Status DC Tramadol HCl (Ultram) 50 mg PRN Q6HRS PRN PO PAIN Last administered on 21:47; Start 04/24/16 at 14:00 Latanoprost (Xalatan) 1 drop QHS OU Last administered on 04/26/16 21:41; Start 04/25/16 at 21:00 Fentanyl Citrate (Fentanyl 2ml Vial) 50 mcg 1X ONCE IV Last administered on 14:55; Start 04/25/16 at 13:45; Stop 04/25/16 at 13:46; Status DC Furosemide (Lasix) 40 mg [id number] IVP Last administered on 04/27/16 08:45; Start 04/26/16 at 09:00 Furosemide (Lasix) 40 mg 1X ONCE IVP Last administered on 04/25/16 14:54; Start 04/25/16 at 14:15; Stop 04/25/16 at 14:16; Status DC Potassium Chloride (Klor-Con) 20 meq 1X ONCE PO Last administered on 14:53; Start 04/25/16 at 14:15; Stop 04/25/16 at 14:16; Status DC Potassium Chloride (Klor-Con) 20 meq DAILYWBKFT PO Last administered on 08:45; Start 04/26/16 at 08:00 Albuterol/ Ipratropium (Duoneb) 3 ml 1X ONCE NEB Last administered on 15:25; Start 04/25/16 at 14:15; Stop 04/25/16 at 14:23; Status DC Albuterol/ Ipratropium (Duoneb) 3 ml RTQID NEB Last administered on 04/27/16 08:15; Start 04/25/16 at 16:00 Acetaminophen/ Hydrocodone Bitart (Lortab 5/325) 1 tab PRN Q4HRS PRN PO MILD PAIN Last administered on 04/26/16 21:43; Start 04/25/16 at 14:15 Furosemide (Lasix) 40 mg [id number] IVP Last administered on 04/25/16 17:12; Start 04/25/16 at 16:30; Stop 04/26/16 at 07:41; Status DC Ketorolac Tromethamine (Toradol) 30 mg PRN Q6HRS PRN IV PAIN Last administered on 04/25/16 18:16; Start 04/25/16 at 16:30; Stop 04/26/16 at 08:12; Status DC Acetaminophen (Tylenol) 650 mg PRN Q6HRS PRN PO MILD PAIN / TEMP; Start at 08:15 Active Scripts Active Lasix (Furosemide) 40 Mg Tablet 40 Mg PO BID Amiodarone Hcl 200 Mg Tablet 200 Mg PO HS Aldactone (Spironolactone) 25 Mg Tablet 25 Mg PO DAILY Klor-Con M10 (Potassium Chloride) 10 Meq Tab.er.prt 20 Meq PO [id number] Miralax (Polyethylene Glycol 3350) 17 Gm Powd.pack 17 Gm PO DAILY Lanoxin (Digoxin) 125 Mcg Tablet 125 Mcg PO DAILY Metoprolol Succinate ( Xl ) (Metoprolol Succinate) 25 Mg Tab.er.24h 25 Mg PO DAILY Reported Pantoprazole Sodium 40 Mg Tablet.dr 40 Mg PO QHS Ferrous Sulfate 325 Mg Tablet 325 Mg PO DAILY Losartan Potassium 25 Mg Tablet 25 Mg PO HS Montelukast Sodium Tablet (Montelukast Sodium) 10 Mg Tablet 10 Mg PO HS Travatan Z (Travoprost) 5 Ml Drops 1 Drop OU HS Vitals/I & O Vital Sign - Last 24 Hours 04/26/16 04/26/16 04/26/16 04/26/16 10:35 11:51 14:35 16:04 Temp 99.0 99.1 99.0 99.1 Pulse 62 Resp 18 20 B/P 108/41 98/55 Pulse Ox 94 92 95 O2 Delivery Nasal Cannula Nasal Cannula Nasal Cannula Nasal Cannula O2 Flow Rate 3.0 3.0 3.0 3.0 04/26/16 04/26/16 04/26/16 04/26/16 19:35 19:41 20:00 21:42 Temp 97.6 97.6 Pulse 90 88 Resp 20 B/P 107/55 107/55 Pulse Ox 92 91 O2 Delivery Nasal Cannula Nasal Cannula Nasal Cannula O2 Flow Rate 4.0 3.0 3.0 04/26/16 04/26/16 04/27/16 04/27/16 21:42 23:10 03:20 07:15 Temp 98.2 98.6 98.6 98.2 98.6 98.6 Pulse 80 77 74 76 Resp 20 20 18 B/P 107/55 104/58 100/58 97/52 Pulse Ox 91 94 93 O2 Delivery Nasal Cannula Nasal Cannula Nasal Cannula O2 Flow Rate 4.0 4.0 4.0 04/27/16 04/27/16 04/27/16 07:40 08:16 08:45 Pulse 76 B/P 97/52 Pulse Ox 92 O2 Delivery Nasal Cannula Nasal Cannula O2 Flow Rate 4.0 4.0 Intake and Output 04/26/16 04/26/16 04/27/16 15:00 23:00 07:00 Intake Total 2100 ml 600 ml Output Total 400 ml Balance 2100 ml 200 ml SELINA PATEL MD Apr 27, 2016 10:24
--- NOTE | 2016-04-27 10:39 | PDOC ---
PULMONARY PROGRESS NOTES Vitals Vital Signs Date Time Temp Pulse Resp B/P Pulse Ox O2 Delivery O2 Flow Rate FiO2 04/27/16 08:45 76 97/52 04/27/16 08:16 92 Nasal Cannula 4.0 04/27/16 07:15 98.6 18 98.6 General: Alert, Oriented X4, No acute distress Lungs: Clear Cardiovascular: S1, S2 Abdomen: Soft, Non-tender Extremities: No Edema Labs Laboratory Tests Test 04/26/16 03:39 04/26/16 13:55 04/27/16 03:30 Sodium Level 137mmol/L (136-145) 135mmol/L (136-145) Potassium Level 4.5mmol/L (3.5-5.1) 4.7mmol/L (3.5-5.1) Chloride Level 101mmol/L (98-107) 99mmol/L (98-107) Carbon Dioxide Level 24mmol/L (21-32) 26mmol/L (21-32) Anion Gap 12 (6-14) 10 (6-14) Blood Urea Nitrogen 19mg/dL (8-26) 21mg/dL (8-26) Creatinine 1.4mg/dL (0.7-1.3) 1.2mg/dL (0.7-1.3) Estimated GFR (Cockcroft-Gault) 63.9 76.3 Glucose Level 99mg/dL (70-99) 88mg/dL (70-99) Calcium Level 8.8mg/dL (8.5-10.1) 8.7mg/dL (8.5-10.1) Prostate Specific Antigen 0.57ng/mL (0.00-4.00) Urine Collection Type Unknown Urine Color Yellow Urine Clarity Clear Urine pH 5.0 Urine Specific [place] 1.010 Urine Protein Negativemg/dL (NEG-TRACE) Urine Glucose (UA) Negativemg/dL (NEG) Urine Ketones (Stick) Negativemg/dL (NEG) Urine Blood Negative (NEG) Urine Nitrite Negative (NEG) Urine Bilirubin Negative (NEG) Urine Urobilinogen Dipstick 1.0mg/dL (0.2 mg/dL) Urine Leukocyte Esterase Negative (NEG) Urine RBC 0/HPF (0-2) Urine WBC 0/HPF (0-4) Urine Bacteria 0/HPF (0-FEW) Urine Hyaline Casts Moderate/HPF Urine Mucus Mod/LPF White Blood Count 6.5x10^3/uL (4.0-11.0) Red Blood Count 3.31x10^6/uL (4.30-5.70) Hemoglobin 8.7g/dL (13.0-17.5) Hematocrit 28.0% (39.0-53.0) Mean Corpuscular Volume 85fL (79-100) Mean Corpuscular Hemoglobin 26pg (25-35) Mean Corpuscular Hemoglobin Concent 31g/dL (31-37) Red Cell Distribution Width 14.4% (11.5-14.5) Platelet Count 225x10^3/uL (140-400) Neutrophils (%) (Auto) 65% (31-73) Lymphocytes (%) (Auto) 15% (24-48) Monocytes (%) (Auto) 19% (0-9) Eosinophils (%) (Auto) 1% (0-3) Basophils (%) (Auto) 0% (0-3) Neutrophils # (Auto) 4.2x10^3uL (1.8-7.7) Lymphocytes # (Auto) 0.9x10^3/uL (1.0-4.8) Monocytes # (Auto) 1.3x10^3/uL (0.0-1.1) Eosinophils # (Auto) 0.1x10^3/uL (0.0-0.7) Basophils # (Auto) 0.0x10^3/uL (0.0-0.2) Segmented Neutrophils % 65% (35-66) Band Neutrophils % 1% (0-9) Lymphocytes % 17% (24-48) Atypical Lymphocytes % (Manual) 1% (0-0) Monocytes % 16% (0-10) Platelet Estimate Adequate (ADEQUATE) Magnesium Level 2.1mg/dL (1.8-2.4) Laboratory Tests Test 04/26/16 13:55 04/27/16 03:30 Urine Collection Type Unknown Urine Color Yellow Urine Clarity Clear Urine pH 5.0 Urine Specific [place] 1.010 Urine Protein Negativemg/dL (NEG-TRACE) Urine Glucose (UA) Negativemg/dL (NEG) Urine Ketones (Stick) Negativemg/dL (NEG) Urine Blood Negative (NEG) Urine Nitrite Negative (NEG) Urine Bilirubin Negative (NEG) Urine Urobilinogen Dipstick 1.0mg/dL (0.2 mg/dL) Urine Leukocyte Esterase Negative (NEG) Urine RBC 0/HPF (0-2) Urine WBC 0/HPF (0-4) Urine Bacteria 0/HPF (0-FEW) Urine Hyaline Casts Moderate/HPF Urine Mucus Mod/LPF White Blood Count 6.5x10^3/uL (4.0-11.0) Red Blood Count 3.31x10^6/uL (4.30-5.70) Hemoglobin 8.7g/dL (13.0-17.5) Hematocrit 28.0% (39.0-53.0) Mean Corpuscular Volume 85fL (79-100) Mean Corpuscular Hemoglobin 26pg (25-35) Mean Corpuscular Hemoglobin Concent 31g/dL (31-37) Red Cell Distribution Width 14.4% (11.5-14.5) Platelet Count 225x10^3/uL (140-400) Neutrophils (%) (Auto) 65% (31-73) Lymphocytes (%) (Auto) 15% (24-48) Monocytes (%) (Auto) 19% (0-9) Eosinophils (%) (Auto) 1% (0-3) Basophils (%) (Auto) 0% (0-3) Neutrophils # (Auto) 4.2x10^3uL (1.8-7.7) Lymphocytes # (Auto) 0.9x10^3/uL (1.0-4.8) Monocytes # (Auto) 1.3x10^3/uL (0.0-1.1) Eosinophils # (Auto) 0.1x10^3/uL (0.0-0.7) Basophils # (Auto) 0.0x10^3/uL (0.0-0.2) Segmented Neutrophils % 65% (35-66) Band Neutrophils % 1% (0-9) Lymphocytes % 17% (24-48) Atypical Lymphocytes % (Manual) 1% (0-0) Monocytes % 16% (0-10) Platelet Estimate Adequate (ADEQUATE) Sodium Level 135mmol/L (136-145) Potassium Level 4.7mmol/L (3.5-5.1) Chloride Level 99mmol/L (98-107) Carbon Dioxide Level 26mmol/L (21-32) Anion Gap 10 (6-14) Blood Urea Nitrogen 21mg/dL (8-26) Creatinine 1.2mg/dL (0.7-1.3) Estimated GFR (Cockcroft-Gault) 76.3 Glucose Level 88mg/dL (70-99) Calcium Level 8.7mg/dL (8.5-10.1) Magnesium Level 2.1mg/dL (1.8-2.4) Medications Active Scripts Medications Dose Route/Sig Days Date Category Dose Instructions Tessalon Perle (Benzonatate) 100 Mg Capsule 1 Cap PO TID 10/30/15 Rx Zithromax (Azithromycin) 250 Mg Tablet 1 Pkg PO UD 10/30/15 Rx 2 tabs on first day, 1 tab daily for next 4 days Amiodarone Hcl 200 Mg Tablet 200 Mg PO HS 09/17/15 Rx Lasix (Furosemide) 40 Mg Tablet 1 Tab PO DAILY 09/17/15 Rx Aldactone (Spironolactone) 25 Mg Tablet 25 Mg PO DAILY 09/17/15 Rx Klor-Con M10 (Potassium Chloride) 10 Meq Tab.er.prt 20 Meq PO DAILYWBKFT 09/17/15 Rx Miralax (Polyethylene Glycol 3350) 17 Gm Powd.pack 17 Gm PO DAILY 09/17/15 Rx Lanoxin (Digoxin) 125 Mcg Tablet 125 Mcg PO DAILY 09/17/15 Rx Pantoprazole Sodium 40 Mg Tablet.dr 40 Mg PO QHS 09/15/15 Reported Ferrous Sulfate 325 Mg Tablet 325 Mg PO DAILY 09/15/15 Reported Metoprolol Succinate ( Xl ) (Metoprolol Succinate) 25 Mg Tab.er.24h 25 Mg PO DAILY 06/27/15 Rx Losartan Potassium 25 Mg Tablet 25 Mg PO HS 09/25/13 Reported Xarelto (Rivaroxaban) 10 Mg Tablet 20 Mg PO HS 09/25/13 Reported Montelukast Sodium Tablet (Montelukast Sodium) 10 Mg Tablet 10 Mg PO HS 09/25/13 Reported Travatan Z (Travoprost) 5 Ml Drops 1 Drop OU HS 05/21/13 Reported Impression . 1. Abnormal x-ray compatible with atelectasis. 2. Chest pain, suspect pleurisy. 3. Chronic hypoxemic respiratory failure. 4. Chronic obstructive pulmonary disease. 5. Acute on chronic ____ diastolic heart failure. Plan . 1. Recommend to continue current medical management. 2. Pchintan Peace. 3. Incentive spirometry. 4. Diurese. 5. Follow Cardiology input. ASHLEY FERNANDO MD Apr 27, 2016 10:39
[2016-04-27] MEDS ORDERED: RIVA10TA PO (11:00)
[2016-04-27 11:01] VITALS: BP 106/59
--- NOTE | 2016-04-27 11:12 | PDOC ---
YAMILET PENNINGTON DESSERT CUP MACHINE FEEDER 04/27/16 1112: SURGICAL PROGRESS NOTE Subjective hernia not bothering him much today potential dc today Vital Signs Vital Signs Date Time Temp Pulse Resp B/P Pulse Ox O2 Delivery O2 Flow Rate FiO2 04/27/16 11:01 98.4 74 20 106/59 95 Nasal Cannula 4.0 98.4 I&O Intake and Output 04/27/16 07:00 Intake Total 2700 ml Output Total 400 ml Balance 2300 ml Intake Oral 2700 ml Output Urine Total 400 ml General: Alert, Oriented X3, Cooperative, No acute distress Abdomen: Soft, Other (RIH reduced) Labs Laboratory Tests Test 04/26/16 03:39 04/26/16 13:55 04/27/16 03:30 Sodium Level 137mmol/L (136-145) 135mmol/L (136-145) Potassium Level 4.5mmol/L (3.5-5.1) 4.7mmol/L (3.5-5.1) Chloride Level 101mmol/L (98-107) 99mmol/L (98-107) Carbon Dioxide Level 24mmol/L (21-32) 26mmol/L (21-32) Anion Gap 12 (6-14) 10 (6-14) Blood Urea Nitrogen 19mg/dL (8-26) 21mg/dL (8-26) Creatinine 1.4mg/dL (0.7-1.3) 1.2mg/dL (0.7-1.3) Estimated GFR (Cockcroft-Gault) 63.9 76.3 Glucose Level 99mg/dL (70-99) 88mg/dL (70-99) Calcium Level 8.8mg/dL (8.5-10.1) 8.7mg/dL (8.5-10.1) Prostate Specific Antigen 0.57ng/mL (0.00-4.00) Urine Collection Type Unknown Urine Color Yellow Urine Clarity Clear Urine pH 5.0 Urine Specific [place] 1.010 Urine Protein Negativemg/dL (NEG-TRACE) Urine Glucose (UA) Negativemg/dL (NEG) Urine Ketones (Stick) Negativemg/dL (NEG) Urine Blood Negative (NEG) Urine Nitrite Negative (NEG) Urine Bilirubin Negative (NEG) Urine Urobilinogen Dipstick 1.0mg/dL (0.2 mg/dL) Urine Leukocyte Esterase Negative (NEG) Urine RBC 0/HPF (0-2) Urine WBC 0/HPF (0-4) Urine Bacteria 0/HPF (0-FEW) Urine Hyaline Casts Moderate/HPF Urine Mucus Mod/LPF White Blood Count 6.5x10^3/uL (4.0-11.0) Red Blood Count 3.31x10^6/uL (4.30-5.70) Hemoglobin 8.7g/dL (13.0-17.5) Hematocrit 28.0% (39.0-53.0) Mean Corpuscular Volume 85fL (79-100) Mean Corpuscular Hemoglobin 26pg (25-35) Mean Corpuscular Hemoglobin Concent 31g/dL (31-37) Red Cell Distribution Width 14.4% (11.5-14.5) Platelet Count 225x10^3/uL (140-400) Neutrophils (%) (Auto) 65% (31-73) Lymphocytes (%) (Auto) 15% (24-48) Monocytes (%) (Auto) 19% (0-9) Eosinophils (%) (Auto) 1% (0-3) Basophils (%) (Auto) 0% (0-3) Neutrophils # (Auto) 4.2x10^3uL (1.8-7.7) Lymphocytes # (Auto) 0.9x10^3/uL (1.0-4.8) Monocytes # (Auto) 1.3x10^3/uL (0.0-1.1) Eosinophils # (Auto) 0.1x10^3/uL (0.0-0.7) Basophils # (Auto) 0.0x10^3/uL (0.0-0.2) Segmented Neutrophils % 65% (35-66) Band Neutrophils % 1% (0-9) Lymphocytes % 17% (24-48) Atypical Lymphocytes % (Manual) 1% (0-0) Monocytes % 16% (0-10) Platelet Estimate Adequate (ADEQUATE) Magnesium Level 2.1mg/dL (1.8-2.4) Laboratory Tests Test 04/26/16 13:55 04/27/16 03:30 Urine Collection Type Unknown Urine Color Yellow Urine Clarity Clear Urine pH 5.0 Urine Specific [place] 1.010 Urine Protein Negativemg/dL (NEG-TRACE) Urine Glucose (UA) Negativemg/dL (NEG) Urine Ketones (Stick) Negativemg/dL (NEG) Urine Blood Negative (NEG) Urine Nitrite Negative (NEG) Urine Bilirubin Negative (NEG) Urine Urobilinogen Dipstick 1.0mg/dL (0.2 mg/dL) Urine Leukocyte Esterase Negative (NEG) Urine RBC 0/HPF (0-2) Urine WBC 0/HPF (0-4) Urine Bacteria 0/HPF (0-FEW) Urine Hyaline Casts Moderate/HPF Urine Mucus Mod/LPF White Blood Count 6.5x10^3/uL (4.0-11.0) Red Blood Count 3.31x10^6/uL (4.30-5.70) Hemoglobin 8.7g/dL (13.0-17.5) Hematocrit 28.0% (39.0-53.0) Mean Corpuscular Volume 85fL (79-100) Mean Corpuscular Hemoglobin 26pg (25-35) Mean Corpuscular Hemoglobin Concent 31g/dL (31-37) Red Cell Distribution Width 14.4% (11.5-14.5) Platelet Count 225x10^3/uL (140-400) Neutrophils (%) (Auto) 65% (31-73) Lymphocytes (%) (Auto) 15% (24-48) Monocytes (%) (Auto) 19% (0-9) Eosinophils (%) (Auto) 1% (0-3) Basophils (%) (Auto) 0% (0-3) Neutrophils # (Auto) 4.2x10^3uL (1.8-7.7) Lymphocytes # (Auto) 0.9x10^3/uL (1.0-4.8) Monocytes # (Auto) 1.3x10^3/uL (0.0-1.1) Eosinophils # (Auto) 0.1x10^3/uL (0.0-0.7) Basophils # (Auto) 0.0x10^3/uL (0.0-0.2) Segmented Neutrophils % 65% (35-66) Band Neutrophils % 1% (0-9) Lymphocytes % 17% (24-48) Atypical Lymphocytes % (Manual) 1% (0-0) Monocytes % 16% (0-10) Platelet Estimate Adequate (ADEQUATE) Sodium Level 135mmol/L (136-145) Potassium Level 4.7mmol/L (3.5-5.1) Chloride Level 99mmol/L (98-107) Carbon Dioxide Level 26mmol/L (21-32) Anion Gap 10 (6-14) Blood Urea Nitrogen 21mg/dL (8-26) Creatinine 1.2mg/dL (0.7-1.3) Estimated GFR (Cockcroft-Gault) 76.3 Glucose Level 88mg/dL (70-99) Calcium Level 8.7mg/dL (8.5-10.1) Magnesium Level 2.1mg/dL (1.8-2.4) Problem List Problems Medical Problems: (1) Chest pain Status: Acute (2) Congestive heart failure Status: Acute (3) COPD (chronic obstructive pulmonary disease) Status: Acute (4) Moderate protein malnutrition Status: Acute Assessment/Plan [facility] can fu in clinic with Dr Lozano to discuss elective repair Problems: DENNISE LOZANO MD 04/27/16 1321: SURGICAL PROGRESS NOTE Assessment/Plan sleeping soundly I did not wake him follow up in office after dismissal Problems: YAMILET PENNINGTON APRN Apr 27, 2016 11:12 DENNISE LOZANO MD Apr 27, 2016 13:21
--- NOTE | 2016-04-27 13:09 | PDOC ---
EDWIN YANG SUPERVISOR TELEPHONE ANSWERING SERVICE 04/27/16 1309: CARDIO Progress Notes Date and Time Date of Service 04/27/16 Time of Evaluation 1300 Subjective Subjective: No Palpitations, No Dizziness, Other (scrotal/abdominal edema, dyspnea mildly improved ) Vitals Vitals Vital Signs Date Time Temp Pulse Resp B/P Pulse Ox O2 Delivery O2 Flow Rate FiO2 04/27/16 11:20 91 Nasal Cannula 3.0 04/27/16 11:01 98.4 74 20 106/59 98.4 Weight Weight [ ] Input and Output Intake and Output Intake and Output 04/27/16 07:00 Intake Total 2700 ml Output Total 400 ml Balance 2300 ml Intake Oral 2700 ml Output Urine Total 400 ml Laboratory Labs Laboratory Tests Test 04/26/16 13:55 04/27/16 03:30 Urine Collection Type Unknown Urine Color Yellow Urine Clarity Clear Urine pH 5.0 Urine Specific [place] 1.010 Urine Protein Negativemg/dL (NEG-TRACE) Urine Glucose (UA) Negativemg/dL (NEG) Urine Ketones (Stick) Negativemg/dL (NEG) Urine Blood Negative (NEG) Urine Nitrite Negative (NEG) Urine Bilirubin Negative (NEG) Urine Urobilinogen Dipstick 1.0mg/dL (0.2 mg/dL) Urine Leukocyte Esterase Negative (NEG) Urine RBC 0/HPF (0-2) Urine WBC 0/HPF (0-4) Urine Bacteria 0/HPF (0-FEW) Urine Hyaline Casts Moderate/HPF Urine Mucus Mod/LPF White Blood Count 6.5x10^3/uL (4.0-11.0) Red Blood Count 3.31x10^6/uL (4.30-5.70) Hemoglobin 8.7g/dL (13.0-17.5) Hematocrit 28.0% (39.0-53.0) Mean Corpuscular Volume 85fL (79-100) Mean Corpuscular Hemoglobin 26pg (25-35) Mean Corpuscular Hemoglobin Concent 31g/dL (31-37) Red Cell Distribution Width 14.4% (11.5-14.5) Platelet Count 225x10^3/uL (140-400) Neutrophils (%) (Auto) 65% (31-73) Lymphocytes (%) (Auto) 15% (24-48) Monocytes (%) (Auto) 19% (0-9) Eosinophils (%) (Auto) 1% (0-3) Basophils (%) (Auto) 0% (0-3) Neutrophils # (Auto) 4.2x10^3uL (1.8-7.7) Lymphocytes # (Auto) 0.9x10^3/uL (1.0-4.8) Monocytes # (Auto) 1.3x10^3/uL (0.0-1.1) Eosinophils # (Auto) 0.1x10^3/uL (0.0-0.7) Basophils # (Auto) 0.0x10^3/uL (0.0-0.2) Segmented Neutrophils % 65% (35-66) Band Neutrophils % 1% (0-9) Lymphocytes % 17% (24-48) Atypical Lymphocytes % (Manual) 1% (0-0) Monocytes % 16% (0-10) Platelet Estimate Adequate (ADEQUATE) Sodium Level 135mmol/L (136-145) Potassium Level 4.7mmol/L (3.5-5.1) Chloride Level 99mmol/L (98-107) Carbon Dioxide Level 26mmol/L (21-32) Anion Gap 10 (6-14) Blood Urea Nitrogen 21mg/dL (8-26) Creatinine 1.2mg/dL (0.7-1.3) Estimated GFR (Cockcroft-Gault) 76.3 Glucose Level 88mg/dL (70-99) Calcium Level 8.7mg/dL (8.5-10.1) Magnesium Level 2.1mg/dL (1.8-2.4) Physical Exam HEENT: Neck Supple W Full Motion Chest: Symmetric LUNGS: Other (diminished bases) Heart: S1S2, RRR Abdomen: Other (distended, ascites, scrotal edema ) Extremities: Other (2+ pitting bilateral LE edema ) Neurology: alert, oriented, follow commands Assessment Assessment 1. Acute on chronic diastolic HF improved continue diuresis with monitoring of renal function 2. chest pain, noncardiac pleuritic in nature worse with deep breath 3. PAFIB maintaining SR Xarelto held due to coagulopathy resume at same dose per hematology 4. SSS s/p PPM recent device check shows normal function 5. Ascites US with hepatomegaly 6. Coagulopathy INR 2.3 hematology following 7. ? cirrhosis given #4 and 5. remote h/o of ETOH and report frequent Tylenol use- 4-5 extra strength/day. recommend GI workup- per PCP 8. right inguinal hernia 9. hydrocele per urology LOTUS PAK MD 04/27/16 1502: CARDIO Progress Notes Assessment Assessment Patient seen and examined. Agree with TRANSPORT TECH's assessment and plan. Acute on chronic diastolic heart failure better compensated. Maintaining sinus rhythm. Resume xarelto upon discharge. EDWIN YANG APRN Apr 27, 2016 13:09 LOTUS PAK MD Apr 27, 2016 15:02
== END 2016-04-27 14:15 | disposition home or self-care (01) | DRG 291 ==
LOC: ER 09:10 → 2 NORTH 10:57
PROVIDERS: ADMIT Internal Medicine; ATTEND Internal Medicine
DX: I13.0 Hypertensive heart and chronic kidney disease with heart failure and stage 1 through stage 4 chronic kidney disease, or unspecified chronic kidney disease (principal); I50.43 Acute on chronic combined systolic (congestive) and diastolic (congestive) heart failure; J98.11 Atelectasis; E44.0 Moderate protein-calorie malnutrition; J96.11 Chronic respiratory failure with hypoxia; F12.90 Cannabis use, unspecified, uncomplicated; K74.60 Unspecified cirrhosis of liver; I27.2 Other secondary pulmonary hypertension; J44.9 Chronic obstructive pulmonary disease, unspecified; E78.5 Hyperlipidemia, unspecified; R79.1 Abnormal coagulation profile; Z87.891 Personal history of nicotine dependence; I48.91 Unspecified atrial fibrillation; D50.9 Iron deficiency anemia, unspecified; K21.9 Gastro-esophageal reflux disease without esophagitis; K40.90 Unilateral inguinal hernia, without obstruction or gangrene, not specified as recurrent; N18.3 Chronic kidney disease, stage 3 (moderate); E03.9 Hypothyroidism, unspecified; F32.9 Major depressive disorder, single episode, unspecified; T45.515A Adverse effect of anticoagulants, initial encounter; Z82.49 Family history of ischemic heart disease and other diseases of the circulatory system; Z87.74 Personal history of (corrected) congenital malformations of heart and circulatory system; Z95.0 Presence of cardiac pacemaker; Z83.3 Family history of diabetes mellitus; Z68.28 Body mass index [BMI] 28.0-28.9, adult; Z79.01 Long term (current) use of anticoagulants; Z72.89 Other problems related to lifestyle
CPT/HCPCS: 36415; 71010; 74000; 76700; 76870; 80048; 80076; 81001; 82553; 83735; 83880; 84484; 85007; 85027; 85610; 93005; 94250; 94640; 94760; 96361; 96374; 96375; G0103; G0238; J1885; J1940; J2405; J3010; J7030; J7620; 99285-25

== ENCOUNTER 2016-05-10 08:28 | Outpatient (CLI) | payer BC ==
[2016-05-10] VITALS (13 sets, daily range): BP systolic 107–132; BP diastolic 55–84
[~2016-05-10] VITALS: Ht 182.9 cm; Wt 90.3 kg
[2016-05-10] MEDS ORDERED: ESCI10TA PO (09:10)
[2016-05-10 09:19] LABS: BASO # 0.1 x10^3/uL (0.0-0.2); BASO % 1 % (0-3); EOS % 0 % (0-3); HEMOGLOBIN 8.4 g/dL (13.0-17.5); LYMPH # 1.5 x10^3/uL (1.0-4.8); LYMPH % 20 % (24-48); MEAN CORPUSCULAR HEMOGLOBIN 25 pg (25-35); MEAN CORPUSCULAR HGB CONC 31 g/dL (31-37); MEAN CORPUSCULAR VOLUME 81 fL (79-100); MONO % 11 % (0-9); NEUT % 68 % (31-73); PLATELET COUNT 254 x10^3/uL (140-400); RED BLOOD COUNT 3.32 x10^6/uL (4.30-5.70); RED CELL DISTRIBUTION WIDTH 14.1 % (11.5-14.5); WHITE BLOOD COUNT 7.7 x10^3/uL (4.0-11.0)
[2016-05-10 09:29] LABS: INR 1.6 (0.8-1.1); PROTHROMBIN TIME PATIENT 17.8 SEC (11.7-14.0)
[2016-05-10] MEDS ORDERED: LIDOCAINE 1% / SOD BICARB 8.4% 20 ML VIAL. IJ ONE ×2 (09:59→11:30)
[2016-05-10] MEDS ORDERED: MIDAZOLAM HCL/PF 2 MG/2 ML VIAL. ONE (10:05)
[2016-05-10] MEDS ORDERED: FENTANYL PF 100 MCG/2 ML VIAL. ONE (10:05)
[2016-05-10] MEDS ORDERED: ALBUMIN HUMAN 25% 100 ML IV ONE ×2 (10:37→10:45)
--- NOTE | 2016-05-10 10:37 | PDOC ---
MODERATE SEDATION ASSESSMENT RISKS/ALTERNATIVES Risks/Alternatives Risks and alternatives of this type of sedation and procedure discussed with: RISK/ALTERNATIVES: Patient H & P ON CHART H & P H & P on chart and reviewed for co-morbid conditions and appropriate labs. H&P ON CHART: Yes STATUS PREG STATUS ASSESSED: N/A MEDS/ALLERGIES REVIEWED Meds/Allergies Reviewed Medications and Allergies including time and route of recently administered narcotics and sedatives. MEDS/ALLERGIES REVIEWED: Yes ASA RATING ASA RATING: II AIRWAY ASSESSMENT Airway Assessment Airway patency, oral function limitations, presence of caps, crowns, dentures, partials, and ability to extend neck assessed. AIRWAY ASSESSMENT: Yes MALLAMPATI SCORE MALLAMPATI SCORE: II PRE-SEDATION ASSESSMENT PRE-SEDATION ASSESSMENT: Yes JOSE BUCKLEY MD May 10, 2016 10:36
--- NOTE | 2016-05-10 10:41 | PDOC1 ---
History and Physical Date of Procedure Date of Admission 05/10/16 Procedure Procedure Image guided Dx/Tx paracentesis Indication Indication 55 YO with large volume, symptomatic ascites. Image guided paracentesis requested by GI. Past Medical History Past Medical History See Nursing Pre Procedure PMH Past Surgical History Past Surgical History See Nursing Pre procedure PSH Current Medications Current Medications Current Medications Lidocaine/Sodium Bicarbonate (Buffered Lidocaine 1%) 20 ml STK-MED ONCE IJ ; Start 05/10/16 at 09:59; Stop 05/10/16 at 10:00; Status DC Fentanyl Citrate (Fentanyl 2ml Vial) 100 mcg STK-MED ONCE .ROUTE ; Start at 10:05; Stop 05/10/16 at 10:06; Status DC Midazolam HCl (Versed) 2 mg STK-MED ONCE .ROUTE ; Start 05/10/16 at 10:05; Stop 05/10/16 at 10:06; Status DC Active Scripts Active Xarelto (Rivaroxaban) 10 Mg Tablet 20 Mg PO DAILYWSUP Lasix (Furosemide) 40 Mg Tablet 40 Mg PO BID Amiodarone Hcl 200 Mg Tablet 200 Mg PO HS Aldactone (Spironolactone) 25 Mg Tablet 25 Mg PO DAILY Klor-Con M10 (Potassium Chloride) 10 Meq Tab.er.prt 20 Meq PO DAILYWBKFT Miralax (Polyethylene Glycol 3350) 17 Gm Powd.pack 17 Gm PO DAILY Lanoxin (Digoxin) 125 Mcg Tablet 125 Mcg PO DAILY Metoprolol Succinate ( Xl ) (Metoprolol Succinate) 25 Mg Tab.er.24h 25 Mg PO DAILY Reported Escitalopram Oxalate 10 Mg Tablet 0.5 Tab PO DAILY Pantoprazole Sodium 40 Mg Tablet.dr 40 Mg PO QHS Ferrous Sulfate 325 Mg Tablet 325 Mg PO DAILY Losartan Potassium 25 Mg Tablet 25 Mg PO HS Montelukast Sodium Tablet (Montelukast Sodium) 10 Mg Tablet 10 Mg PO HS Travatan Z (Travoprost) 5 Ml Drops 1 Drop OU HS Allergies Allergies: Coded Allergies: No Known Drug Allergies (Unverified , 09/15/15) Physical Exam Vital Signs Vital Signs Date Time Temp Pulse Resp B/P Pulse Ox O2 Delivery O2 Flow Rate FiO2 05/10/16 10:22 75 18 93 Nasal Cannula 3.0 05/10/16 09:50 97.9 130/72 97.9 Lungs: Clear to auscultation Heart: Regular rate Psych/Mental Status: Mental status NL Other Abdomen distended with fluid wave Assessment Assessment Large volume symptomatic ascites Problems: Plan Plan Image guided Dx/Tx paracentesis JOSE BUCKLEY MD May 10, 2016 10:41
[2016-05-10] MEDS ORDERED: FENTANYL PF 100 MCG/2 ML VIAL. IV ONE (10:45)
--- NOTE | 2016-05-10 10:45 | PDOC ---
Exam Net Maker Net Maker [place] Director Fixed Income Director Fixed Income Jania Angel Pre-Procedure Diagnosis Pre-Procedure Diagnosis 55 YO male with large volume, symptomatic ascites---H/o CHF Post-Procedure Diagnosis Post-Procedure Diagnosis Same Procedure Performed Procedure Performed CT guided Dx/Tx paracentesis Type of Anesthesia Type of Anesthesia Local + Mod sedation Estimated Blood Loss EBL: Trace Specimens Specimans 2500 cc yellow-slight hazy ascites removed----samples to lab per protocol Condition of Patient Condition of Patient Stable. No apparent complication. Infusion of 25 grams 25% albumin initiated during paracentesis procedure. Disposition Disposition Home from [facility] post procedure, if no problems. F/u with referring MD. Full report to follow. JOSE BUCKLEY MD May 10, 2016 10:45
[2016-05-10] MEDS ORDERED: MIDAZOLAM HCL/PF 2 MG/2 ML VIAL. IV ONE (11:30)
--- NOTE | 2016-05-10 11:55 | RAD ---
Abdominal ultrasound, 05/10/2016: History: Ascites The gallbladder is within normal limits in size. There is no sonographic evidence of cholelithiasis. There is slight thickening of the gallbladder shrestha. No bile duct dilatation is evident. There is no evidence of a hepatic mass. The pancreas was obscured by overlying bowel. The spleen is of normal size. No renal abnormality is detected. The visualized portions of the abdominal aorta and inferior vena cava show no abnormality. There is a moderate volume of ascites in the abdomen. IMPRESSION: 1. Moderate volume of ascites. 2. The abdomen is otherwise unremarkable. Deep Doppler abdominal ultrasound, 05/10/2016: History: Ascites The deep Doppler interrogation of the hepatic vasculature was performed. The hepatic veins are widely patent. The portal vein is patent. It is within normal limits in size. It demonstrates bidirectional blood flow. The splenic vein is patent. The hepatic artery was not delineated. IMPRESSION: Bidirectional blood flow in the portal vein compatible with portal hypertension.
[2016-05-10 12:41] LABS: BF CLARITY CLEAR; BF COLOR YELLOW
--- NOTE | 2016-05-11 06:59 | RAD ---
CT-guided diagnostic and therapeutic paracentesis Indication: 55-year-old male with congestive heart failure, and with large volume, symptomatic ascites. Image guided paracentesis has been requested. Anesthesia: 43 minutes moderate sedation was provided utilizing a total of 1.5 mg Versed and 75 mcg fentanyl, IV. The patient was appropriately monitored by a qualified independent observer throughout the time of moderate sedation. Procedure: Informed consent was obtained from the patient. He was placed supine on the CT scanner. Preliminary noncontrast CT images were obtained through abdomen and pelvis. These images confirmed generalized cardiomegaly, small bilateral pleural effusions, and a large volume of abdominal and pelvic ascites. A lateral right mid abdominal skin site suitable for CT-guided paracentesis was selected and marked. The area was prepped and draped in usual sterile fashion. Conscious sedation was provided with IV Versed and fentanyl. Using aseptic technique, local anesthesia, and CT guidance, a micropuncture sheath was successfully introduced into right lateral peritoneal cavity. The sheath was then exchanged over a guidewire for a 6 Welsh drainage catheter. Approximately 2500 cc of yellow-slightly hazy ascites was then easily removed, samples which were submitted to the clinical laboratory for routine evaluation per protocol. Completion CT images revealed significant reduction in volume of ascites. The drainage catheter was removed and a sterile dressing was applied. Patient tolerated the procedure well without apparent complication. 25 g 25% albumin was given IV during the paracentesis procedure. Impression: Successful, uneventful CT-guided diagnostic and therapeutic paracentesis, as described. PQRS compliance statement: One or more of the following individualized dose reduction techniques was utilized for this CT procedure: 1. Automated exposure control. 2. Adjustment of MA and/or KV according to patient size. 3. Iterative reconstruction technique.
[2016-05-11 16:20] LABS: BODY FLUID ALBUMIN 1.7 g/dL (.)
== END 2016-05-10 12:40 | disposition home or self-care (01) ==
LOC: US 08:28
PROVIDERS: ATTEND Internal Medicine Gastroenterology
DX: R18.8 Other ascites (principal)
CPT/HCPCS: 36415; 49083; 76700; 85027; 85610; 87205; 89050; 93975; A4215; C1729; C1892; C1894; J2250; J3010; P9046; 82042; 84157

== ENCOUNTER → 2016-05-20 | Outpatient (CLI) | payer BC ==
[2016-05-10 12:35] VITALS: BP 115/55
[~2016-05-20] MED LIST changes: +CONTRAST GIVEN MC PRN; +ESCI10TA PO; +IOHEXOL 300 MG/ML 75 ML VIAL IV ONE
--- NOTE | 2016-05-20 10:29 | RAD ---
CT scan of the abdomen and pelvis with contrast 05/20/2016 Clinical history: Ascites and hepatomegaly. Technique: After the intravenous administration of 75 cc of Omnipaque 300 only, contiguous, 5 mm axial sections were obtained through the abdomen and pelvis. One or more of the following individualized dose reduction techniques were utilized for this study: 1. Automated exposure control. 2. Adjustment of the mA and/or kV according to patient size. 3. Use of iterative reconstruction technique. Findings: Comparison is made to ultrasound of the liver dated 05/10/2016. Images through the lung bases demonstrate moderate cardiomegaly. There are small bilateral pleural effusions, right greater than left. Dependent subsegmental atelectasis is seen involving both lower lobes. The liver is heterogeneous with a slightly nodular contour suggestive of cirrhosis. It measures 18 cm in length which is within the upper limits of normal. No focal abnormality of the liver is seen. The spleen measures 10 cm in length which is within normal limits. No focal abnormality of the spleen is seen. The pancreas, adrenal glands and kidneys are within normal limits. Mild atherosclerotic calcification of the abdominal aorta is seen. The abdominal aorta tapers normally. The gallbladder is contracted. A large amount of ascites is seen throughout the abdomen. No free air is noted. There is no evidence of bowel obstruction. Images through the pelvis demonstrate the urinary bladder distended with urine. Calcifications are seen within the prostate gland. Small calcifications are seen within the right pelvis consistent with phleboliths. A large amount of ascites is seen extending into the pelvis. Minimal S shaped curvature of the thoracolumbar spine is noted. Impression: 1. Moderate cardiomegaly. Small bilateral pleural effusions, right greater than left. 2. The liver has a nodular contour. It is heterogeneous. These findings are suggestive of cirrhosis. No focal abnormality of the liver is seen. 3. Large amount of ascites is seen involving the abdomen and pelvis.
== END | disposition home or self-care (01) ==
LOC: CT 08:22
PROVIDERS: ATTEND Internal Medicine Gastroenterology
DX: I51.7 Cardiomegaly (principal); J90 Pleural effusion, not elsewhere classified
CPT/HCPCS: 74177; Q9967

== ENCOUNTER 2016-06-07 07:23 | Outpatient (CLI) | payer BC ==
[~2016-06-07] VITALS: Ht 182.9 cm; Wt 81.6 kg
[2016-06-07] VITALS (8 sets, daily range): BP systolic 94–128; BP diastolic 56–73
[~2016-06-07 07:23] MED LIST changes: -CONTRAST GIVEN MC PRN; -IOHEXOL 300 MG/ML 75 ML VIAL IV ONE; +POLY17PO29 PO; -POLY17PO5 PO
[2016-06-07 08:09] LABS: BASO % 1 % (0-3); EOS % 1 % (0-3); HEMATOCRIT 26.2 % (39.0-53.0); HEMOGLOBIN 7.8 g/dL (13.0-17.5); LYMPH # 1.1 x10^3/uL (1.0-4.8); LYMPH % 20 % (24-48); MEAN CORPUSCULAR HEMOGLOBIN 24 pg (25-35); MEAN CORPUSCULAR HGB CONC 30 g/dL (31-37); MEAN CORPUSCULAR VOLUME 79 fL (79-100); MONO % 10 % (0-9); NEUT % 69 % (31-73); PLATELET COUNT 258 x10^3/uL (140-400); RED BLOOD COUNT 3.33 x10^6/uL (4.30-5.70); RED CELL DISTRIBUTION WIDTH 15.5 % (11.5-14.5); WHITE BLOOD COUNT 5.6 x10^3/uL (4.0-11.0)
[2016-06-07 08:22] LABS: CALCIUM 8.2 mg/dL (8.5-10.1); CREATININE 1.4 mg/dL (0.7-1.3); GFR 63.9; INR 1.7 (0.8-1.1); POTASSIUM 3.9 mmol/L (3.5-5.1); PROTHROMBIN TIME PATIENT 18.5 SEC (11.7-14.0)
[2016-06-07] MEDS ORDERED: LIDOCAINE 1% / SOD BICARB 8.4% 20 ML VIAL. IJ ONE ×2 (10:04→11:00)
[2016-06-07] MEDS ORDERED: IOHEXOL 300 MG/ML 100ML VIAL. ONE (10:04)
[2016-06-07] MEDS ORDERED: fentaNYL PF VIAL 250 MCG/5 ML VIAL ONE (10:06)
[2016-06-07] MEDS ORDERED: MIDAZOLAM HCL/PF 5 MG/5 ML VIAL. ONE (10:06)
[2016-06-07] MEDS ORDERED: ALBUMIN HUMAN 25% 100 ML IV ONE ×2 (10:46→11:00)
[2016-06-07] MEDS ORDERED: IOHEXOL 300 MG/ML 100ML VIAL. IART ONE (11:00)
[2016-06-07] MEDS ORDERED: fentaNYL PF VIAL 250 MCG/5 ML VIAL IV ONE (12:15)
[2016-06-07] MEDS ORDERED: MIDAZOLAM HCL/PF 5 MG/5 ML VIAL. IV ONE (12:15)
--- NOTE | 2016-06-07 13:59 | PDOC ---
MODERATE SEDATION ASSESSMENT RISKS/ALTERNATIVES Risks/Alternatives Risks and alternatives of this type of sedation and procedure discussed with: RISK/ALTERNATIVES: Patient H & P ON CHART H & P H & P on chart and reviewed for co-morbid conditions and appropriate labs. H&P ON CHART: Yes STATUS PREG STATUS ASSESSED: N/A MEDS/ALLERGIES REVIEWED Meds/Allergies Reviewed Medications and Allergies including time and route of recently administered narcotics and sedatives. MEDS/ALLERGIES REVIEWED: Yes ASA RATING ASA RATING: II AIRWAY ASSESSMENT Airway Assessment Airway patency, oral function limitations, presence of caps, crowns, dentures, partials, and ability to extend neck assessed. AIRWAY ASSESSMENT: Yes MALLAMPATI SCORE MALLAMPATI SCORE: II PRE-SEDATION ASSESSMENT PRE-SEDATION ASSESSMENT: Yes JOSE BUCKLEY MD June 07, 2016 13:59
--- NOTE | 2016-06-07 14:05 | PDOC1 ---
History and Physical Date of Procedure Date of Admission 06/07/16 Procedure Procedure Sono guided Tx paracentesis Transjugular liver bx with hepatic hemodynamics Indication Indication 55 YO male with Cirrhosis and recurrent large volume ascites. Past Medical History Past Medical History See Nursing Pre Procedure PMH Past Surgical History Past Surgical History See Nursing Pre Procedure PSH Current Medications Current Medications Current Medications Iohexol (Omnipaque 300 Mg/ml) 100 ml STK-MED ONCE .ROUTE ; Start 06/07/16 at 10: 04; Stop 06/07/16 at 10:05; Status DC Lidocaine/Sodium Bicarbonate 20 ml 20 ml STK-MED ONCE IJ ; Start 06/07/16 at 10: 04; Stop 06/07/16 at 10:05; Status DC Heparin Sodium/ Sodium Chloride 500 ml @ As Directed STK-MED ONCE .ROUTE ; Start 06/07/16 at 10:05; Stop 06/07/16 at 10:06; Status DC Midazolam HCl (Versed) 5 mg STK-MED ONCE .ROUTE ; Start 06/07/16 at 10:06; Stop 06/07/16 at 10:07; Status DC Fentanyl Citrate 250 mcg 250 mcg STK-MED ONCE .ROUTE ; Start 06/07/16 at 10:06; Stop 06/07/16 at 10:07; Status DC Albumin Human (Albuminar) 100 ml @ As Directed STK-MED ONCE IV ; Start 06/07/16 at 10:46; Stop 06/07/16 at 10:47; Status DC Heparin Sodium/ Sodium Chloride 1,000 unit 1X ONCE IART Last administered on 12:11; Start 06/07/16 at 11:00; Stop 06/07/16 at 11:01; Status DC Lidocaine/Sodium Bicarbonate (Buffered Lidocaine 1%) 20 ml 1X ONCE IJ Last administered on 06/07/16 12:12; Start 06/07/16 at 11:00; Stop 06/07/16 at 11:01; Status DC Iohexol 100 ml 100 ml 1X ONCE IART Last administered on 06/07/16 11:00; Start 06/07/16 at 11:00; Stop 06/07/16 at 11:01; Status DC Albumin Human (Albuminar) 100 ml @ 100 mls/hr 1X ONCE IV Last administered on 06/07/16 12:11; Start 06/07/16 at 11:00; Stop 06/07/16 at 11:59; Status DC Heparin Sodium/ Sodium Chloride 1,000 unit 1X ONCE IART Last administered on 12:25; Start 06/07/16 at 12:15; Stop 06/07/16 at 12:16; Status DC Midazolam HCl (Versed) 5 mg 1X ONCE IV Last administered on 06/07/16 12:27; Start 06/07/16 at 12:15; Stop 06/07/16 at 12:16; Status DC Fentanyl Citrate (Fentanyl 5ml Vial) 250 mcg 1X ONCE IV Last administered on 12:15; Start 06/07/16 at 12:15; Stop 06/07/16 at 12:16; Status DC Active Scripts Active Xarelto (Rivaroxaban) 10 Mg Tablet 20 Mg PO DAILYWSUP Lasix (Furosemide) 40 Mg Tablet 40 Mg PO BID Amiodarone Hcl 200 Mg Tablet 200 Mg PO HS Klor-Con M10 (Potassium Chloride) 10 Meq Tab.er.prt 20 Meq PO DAILYWBKFT Miralax (Polyethylene Glycol 3350) 17 Gm Powd.pack 17 Gm PO DAILY Lanoxin (Digoxin) 125 Mcg Tablet 125 Mcg PO DAILY Metoprolol Succinate ( Xl ) (Metoprolol Succinate) 25 Mg Tab.er.24h 25 Mg PO DAILY Reported Escitalopram Oxalate 10 Mg Tablet 0.5 Tab PO DAILY Pantoprazole Sodium 40 Mg Tablet.dr 40 Mg PO QHS Ferrous Sulfate 325 Mg Tablet 325 Mg PO DAILY Losartan Potassium 25 Mg Tablet 25 Mg PO HS Montelukast Sodium Tablet (Montelukast Sodium) 10 Mg Tablet 10 Mg PO HS Travatan Z (Travoprost) 5 Ml Drops 1 Drop OU HS Allergies Allergies: Coded Allergies: No Known Drug Allergies (Unverified , 09/15/15) Physical Exam Vital Signs Vital Signs Date Time Temp Pulse Resp B/P Pulse Ox O2 Delivery O2 Flow Rate FiO2 06/07/16 13:47 69 18 Nasal Cannula 3.0 06/07/16 13:02 95 06/07/16 08:14 97.8 114/69 97.8 Lungs: Clear to auscultation Heart: Regular rate Psych/Mental Status: Mental status NL Other Abdomen distended, with fluid wave. Assessment Assessment 55 YO male with cirrhosis and recurrent large volume ascites. Problems: Plan Plan Image guided paracentesis for symptomatic relief. TJLBx to assess severity of cirrhosis. Hepatic hemodynamics to estimate degree of Portal HTN. JOSE BUCKLEY MD June 07, 2016 14:05
--- NOTE | 2016-06-07 14:14 | PDOC ---
Exam Oil Field Tester Oil Field Tester [place] Warehouse Specialist Warehouse Specialist Jania Angel Pre-Procedure Diagnosis Pre-Procedure Diagnosis 55 YO male with cirrhosis and recurrent large volume ascites Post-Procedure Diagnosis Post-Procedure Diagnosis Same. Due to extensive communicating network of HV to HV collaterals, no true weged HV pressure could be obtained, despite multiple attempts within multiple vessels ---therefore no PSG could be determined. Procedure Performed Procedure Performed Sono guided Tx paracentesis. TJLBx. Hepatic hemodynamics attempted multiple times within multiple small HV branches with occlusion balloons of varying sizes, 4mm - 6mm. Type of Anesthesia Type of Anesthesia Local + Mod sedation Estimated Blood Loss EBL: Minimal Specimens Specimans Paracentesis: 5000 cc yellow-clear ascites removed----sample to micro TJLBx: 3 20G core bx to path in formalin Condition of Patient Condition of Patient Stable. No apparent complication. 25 Grams 25% albumin was given IV during the paracentesis procedure. Disposition Disposition Home from [facility] post recovery, if no bleeding or other problems. F/u with Arnulfo Roman. Full report to follow. If true PSG is required, direct PV pressures, via transjugular TIPS approach would be necessary. JOSE BUCKLEY MD June 07, 2016 14:14
--- NOTE | 2016-06-08 13:50 | RAD ---
Ultrasound-guided therapeutic paracentesis Transjugular liver biopsy Hepatic venogram with hemodynamics Indication: 55-year-old male with cirrhosis and with recurrent, symptomatic, large volume ascites. Image guided therapeutic paracentesis has been requested. In addition, transjugular liver biopsy has been requested by GI to assess severity of liver damage. Hepatic hemodynamics has been requested to confirm the degree of expected portal hypertension. Anesthesia: 126 minutes moderate sedation was provided utilizing a total of 2 mg Versed and 100 mcg fentanyl, IV. The patient was appropriately monitored by a qualified independent observer throughout the time of moderate sedation. Fluoroscopy time: 41.9 minutes Kerma-area product: 137 Gycm2 Contrast until: 50 cc Omnipaque 300 Sterility: All elements of maximal sterile barrier technique, including the use of a cap, mask, sterile gown, sterile gloves, large sterile sheet, appropriate hand hygiene, and 2% chlorhexidine for cutaneous antisepsis (or acceptable alternative antiseptic per current guidelines) were utilized. Procedure: Informed consent was obtained from the patient. He was placed prone on the angiography table. Moderate sedation was provided with IV Versed and fentanyl. Ultrasound-guided paracentesis: Preliminary ultrasound examination confirmed the presence of a large volume of abdominal/pelvic ascites. A right abdominal peritoneal fluid collection, suitable for sono guided paracentesis, was selected, was marked, and was documented with a single hard copy ultrasound image. That area was then prepped and draped in the usual sterile fashion. Using aseptic technique, local anesthesia, and direct ultrasound guidance, a 21-gauge micropuncture needle was successfully introduced into the selected peritoneal fluid collection. The 21-gauge needle was exchanged over a microguidewire for a micropuncture sheath, which was, in turn, exchanged over a 0.035 inch guidewire for a 6 Polish drainage catheter. Approximately 5000 cc of yellow-colored clear ascites was removed, a sample of which was submitted to microbiology for culture and sensitivity. The drainage catheter was then removed and a sterile dressing was applied. Infusion of 50 g 25% albumin was initiated during the paracentesis procedure. Patient tolerated the procedure well without apparent complication. Transjugular liver biopsy: Preliminary ultrasound examination over right neck revealed wide patency of right internal jugular vein. This was documented with a hard copy ultrasound image. Right neck was then prepped and draped in the usual sterile fashion, utilizing all elements of maximal sterile barrier technique, as described above. Using aseptic technique, local anesthesia, and direct ultrasound guidance, a small micropuncture sheath was successfully introduced into right internal jugular vein. The sheath was removed over a 0.035 inch guidewire. The percutaneous tract was dilated and a 10 Polish 40 cm long right IJ sheath was successfully introduced, and was positioned with its tip at the level of mid right atrium. Subsequently, utilizing fluoroscopic guidance, a 5 Polish MP catheter was inserted through the 10 Polish sheath and was successfully directed deeply into right hepatic vein over a Glidewire. The MP catheter was then exchanged over a Lunderquist wire for the [place] transjugular biopsy set. A total of 3 20-gauge core biopsy samples were obtained from right lobe of liver. Biopsy material was submitted in formalin to pathology. The transjugular biopsy set was then removed through the 10 Polish sheath. Hepatic venogram with hemodynamics: The 5 Polish MP catheter was reintroduced through the 10 Polish right IJ sheath and was again advanced over a Glidewire into peripheral aspect of right hepatic vein. Omnipaque 300 was injected and hepatic venogram DSA images were obtained. Those images revealed widely patent right hepatic vein, without stricture or web. However, those images also revealed multiple hepatic vein to hepatic vein collateral vessels. Superselective catheterization of multiple peripheral hepatic vein branches was performed, however, no satisfactory wedged hepatic vein pressure tracing or measurement could be obtained, due to the collateral communicating veins. Nonwedged hepatic vein pressure was measured at 22 mmHg mean within central aspect of right hepatic vein. However, without satisfactory wedged hepatic vein pressure measurement, no portosystemic gradient could be calculated. Patient tolerated the procedure well without apparent complication. The 10 Polish right IJ sheath was removed and hemostasis was achieved utilizing manual pressure. A sterile dressing was applied. Impression: 1. Successful, uneventful ultrasound-guided therapeutic paracentesis, as described. 2. Successful, uneventful transjugular liver biopsy, as described. 3. Widely patent right hepatic vein, without stricture or web. Direct pressure measurement within central aspect of right hepatic vein measured 22 mmHg mean. Unfortunately, no wedged hepatic vein pressures could be obtained due to multiple hepatic vein-hepatic vein collaterals. Therefore, no mean portosystemic gradient could be calculated.
--- NOTE | 2016-06-10 15:59 | PATHOLOGY ---
PATHOLOGY REPORT * * * * * * * * FINAL DIAGNOSIS: Liver biopsy: - Results pending consultation. COMMENT: The case is sent to [facility] for consultation. An addendum report will be issued upon completion of their examination. (JPM:jose ramon; d/t: 06/09/2016) REPORT ELECTRONICALLY SIGNED BY: Rodriguez Dye M.D. DATE/TIME: 06/10/2016 15:58 * * * * * * * * GROSS PATHOLOGY: Received in formalin labeled "Arron Werner, liver biopsy," are 3 distinct needle cores of douglas soft tissue ranging from 1.5 to 2.0 cm in length, which are submitted entirely in cassette A1. (SNA; 06/08/2016) INITIAL CPT CODE(S): A; 21147, 94624, 51178, 14302, 36882, 69651 Professional services performed [place] [facility] [place] [address] Technical services performed by [facility] at [address] [place] [address], [facility] [address] [place] [address]. SPECIMEN(S) RECEIVED: A.Liver, needle biopsy CLINICAL HISTORY: Cirrhosis PATIENT: ARRON WERNER /AGE: 6 1960 (Age: 55) PATIENT #: [id number] ALT CASE #: SPECIMEN COLLECTION DATE: 06/07/2016 SPECIMEN RECEIVED DATE: 06/07/2016 [facility] - [address] [place] [address] - PHONE: [phone] * * * END OF REPORT * * *
== END 2016-06-07 14:50 | disposition home or self-care (01) ==
LOC: INTRAD 07:23
PROVIDERS: ATTEND Internal Medicine Gastroenterology
DX: K74.60 Unspecified cirrhosis of liver (principal); E78.00 Pure hypercholesterolemia, unspecified; I10 Essential (primary) hypertension; I48.91 Unspecified atrial fibrillation; J45.909 Unspecified asthma, uncomplicated; K21.9 Gastro-esophageal reflux disease without esophagitis; D64.9 Anemia, unspecified; F32.9 Major depressive disorder, single episode, unspecified; J44.9 Chronic obstructive pulmonary disease, unspecified; Z86.73 Personal history of transient ischemic attack (TIA), and cerebral infarction without residual deficits
CPT/HCPCS: 36011; 36415; 36596; 37200; 49083; 75889; 75970; 76937; 80048; 85027; 85610; 87071; 87075; 87205; A4215; C1725; C1729; C1758; C1769; C1887; C1894; J2250; J3010; P9046; Q9967; 88307; 88313

== ENCOUNTER → 2016-06-30 | Outpatient (CLI) | payer BC ==
[~2016-06-30] VITALS: Ht 182.9 cm; Wt 85.7 kg
[2016-06-30] VITALS (13 sets, daily range): BP systolic 104–131; BP diastolic 60–78
[~2016-06-30] MED LIST changes: +ALBUMIN HUMAN 25% 100 ML IV ONE; +LIDOCAINE 1% / SOD BICARB 8.4% 20 ML VIAL. IJ ONE; +MIDAZOLAM HCL/PF 2 MG/2 ML VIAL. IV ONE; +MIDAZOLAM HCL/PF 2 MG/2 ML VIAL. ONE; +POTA20TA82 PO; +fentaNYL PF VIAL 100 MCG/2 ML VIAL IV ONE; +fentaNYL PF VIAL 100 MCG/2 ML VIAL ONE
[2016-06-30 08:38] LABS: BASO % 1 % (0-3); EOS % 0 % (0-3); HEMATOCRIT 28.3 % (39.0-53.0); HEMOGLOBIN 8.2 g/dL (13.0-17.5); LYMPH # 1.4 x10^3/uL (1.0-4.8); LYMPH % 24 % (24-48); MEAN CORPUSCULAR HEMOGLOBIN 23 pg (25-35); MEAN CORPUSCULAR HGB CONC 29 g/dL (31-37); MEAN CORPUSCULAR VOLUME 80 fL (79-100); MONO % 8 % (0-9); NEUT % 67 % (31-73); PLATELET COUNT 248 x10^3/uL (140-400); RED BLOOD COUNT 3.56 x10^6/uL (4.30-5.70); RED CELL DISTRIBUTION WIDTH 17.1 % (11.5-14.5)
[2016-06-30 08:49] LABS: INR 1.5 (0.8-1.1); PROTHROMBIN TIME PATIENT 17.3 SEC (11.7-14.0)
--- NOTE | 2016-06-30 10:26 | PDOC ---
MODERATE SEDATION ASSESSMENT RISKS/ALTERNATIVES Risks/Alternatives Risks and alternatives of this type of sedation and procedure discussed with: RISK/ALTERNATIVES: Patient H & P ON CHART H & P H & P on chart and reviewed for co-morbid conditions and appropriate labs. H&P ON CHART: Yes STATUS PREG STATUS ASSESSED: N/A MEDS/ALLERGIES REVIEWED Meds/Allergies Reviewed Medications and Allergies including time and route of recently administered narcotics and sedatives. MEDS/ALLERGIES REVIEWED: Yes ASA RATING ASA RATING: III AIRWAY ASSESSMENT Airway Assessment Airway patency, oral function limitations, presence of caps, crowns, dentures, partials, and ability to extend neck assessed. AIRWAY ASSESSMENT: Yes MALLAMPATI SCORE MALLAMPATI SCORE: II PRE-SEDATION ASSESSMENT PRE-SEDATION ASSESSMENT: Yes JOSE BUCKLEY MD June 30, 2016 10:26
--- NOTE | 2016-06-30 10:31 | PDOC1 ---
History and Physical Date of Procedure Date of Admission 06/30/16 Procedure Procedure Image guided Tx paracentesis Indication Indication 55 YO male with h/o CHF and chronic liver disease---recurrent, large volume symptomatic ascites Past Medical History Past Medical History See Nursing Pre Procedure PMH Past Surgical History Past Surgical History See Nursing Pre Procedure PSH Current Medications Current Medications Current Medications Lidocaine/Sodium Bicarbonate (Buffered Lidocaine 1%) 20 ml STK-MED ONCE IJ ; Start 06/30/16 at 09:58; Stop 06/30/16 at 09:59; Status DC Fentanyl Citrate (Fentanyl 2ml Vial) 100 mcg STK-MED ONCE .ROUTE ; Start at 10:03; Stop 06/30/16 at 10:04; Status DC Midazolam HCl (Versed) 2 mg STK-MED ONCE .ROUTE ; Start 06/30/16 at 10:03; Stop 06/30/16 at 10:04; Status DC Lidocaine/Sodium Bicarbonate (Buffered Lidocaine 1%) 20 ml 1X ONCE IJ ; Start 06/30/16 at 10:30; Stop 06/30/16 at 10:31 Midazolam HCl (Versed) 2 mg 1X ONCE IV ; Start 06/30/16 at 10:30; Stop at 10:31 Fentanyl Citrate (Fentanyl 2ml Vial) 100 mcg 1X ONCE IV ; Start 06/30/16 at 10: 30; Stop 06/30/16 at 10:31 Active Scripts Active Xarelto (Rivaroxaban) 10 Mg Tablet 20 Mg PO DAILYWSUP Lasix (Furosemide) 40 Mg Tablet 40 Mg PO BID Amiodarone Hcl 200 Mg Tablet 200 Mg PO HS Klor-Con M10 (Potassium Chloride) 10 Meq Tab.er.prt 20 Meq PO DAILYWBKFT Miralax (Polyethylene Glycol 3350) 17 Gm Powd.pack 17 Gm PO DAILY Lanoxin (Digoxin) 125 Mcg Tablet 125 Mcg PO DAILY Metoprolol Succinate ( Xl ) (Metoprolol Succinate) 25 Mg Tab.er.24h 25 Mg PO DAILY Reported Potassium Chloride 20 Meq Tablet.er 20 Meq PO DAILY Escitalopram Oxalate 10 Mg Tablet 0.5 Tab PO DAILY Pantoprazole Sodium 40 Mg Tablet.dr 40 Mg PO QHS Ferrous Sulfate 325 Mg Tablet 325 Mg PO DAILY Montelukast Sodium Tablet (Montelukast Sodium) 10 Mg Tablet 10 Mg PO HS Travatan Z (Travoprost) 5 Ml Drops 1 Drop OU HS Allergies Allergies: Coded Allergies: No Known Drug Allergies (Unverified , 09/15/15) Physical Exam Vital Signs Vital Signs Date Time Temp Pulse Resp B/P (MAP) Pulse Ox O2 Delivery O2 Flow Rate FiO2 06/30/16 10:16 65 20 94 Nasal Cannula 3.0 06/30/16 08:52 98.0 123/78 (93) 98.0 Lungs: Clear to auscultation Heart: Regular rate Psych/Mental Status: Mental status NL Other Abdomen---Nontender. Distended with fluid wave. Assessment Assessment 55 YO male with tricuspid regurgitation, dilated RA and chronic liver disease--- now with recurrent large volume, symptomatic ascites. Problems: Plan Plan Image guided Tx paracentesis JOSE BUCKLEY MD June 30, 2016 10:31
--- NOTE | 2016-06-30 10:39 | PDOC ---
Exam Auto Body Technician Auto Body Technician [place] Animal Scientist Animal Scientist F Ndumbu Pre-Procedure Diagnosis Pre-Procedure Diagnosis 55 YO male with h/o CHF and chronic liver disease, and recurrent large volume ascites Post-Procedure Diagnosis Post-Procedure Diagnosis Same Procedure Performed Procedure Performed Sono guided Tx paracentesis Type of Anesthesia Type of Anesthesia Local + Mod sedation Estimated Blood Loss EBL: Trace Specimens Specimans 6000 cc straw-clear ascites removed---sample to micro for culture Condition of Patient Condition of Patient Stable. No apparent complication. Infusion of 50 grams 25% albumin was initiated during paracentesis procedure. Disposition Disposition Home from [facility] post recovery, if no problems. F/u with Dr Roman. Full report to follow. JOSE BUCKLEY MD June 30, 2016 10:39
--- NOTE | 2016-07-01 06:47 | RAD ---
Ultrasound-guided therapeutic paracentesis Indication: 55-year-old male with congestive heart failure, chronic liver disease, and recurrent, symptomatic, large volume ascites. Image guided therapeutic paracentesis has been requested. Anesthesia: 33 minutes moderate sedation was provided utilizing a total of 0.5 mg Versed and 25 mcg fentanyl, IV. The patient was appropriately monitored by a qualified independent observer throughout the time of moderate sedation. Procedure: Informed consent was obtained from the patient. This procedure was performed in the angiography suite, with the patient on a hospital cart. Preliminary ultrasound examination confirmed the presence of a large volume of abdominal/pelvic ascites. A right lateral abdominal peritoneal fluid collection, suitable for sono guided paracentesis, was selected, was marked, and was documented with a single hard copy ultrasound image. That area was then prepped and draped in the usual sterile fashion. Conscious sedation was provided with IV Versed and fentanyl. Using aseptic technique, local anesthesia, and direct sterile ultrasound guidance, a 21-gauge micropuncture needle was successfully introduced into the selected peritoneal fluid collection. The 21-gauge needle was exchanged over a microguidewire for a micropuncture sheath, which was, in turn, exchanged over a 0.035 inch guidewire for a 6 [place]yan[place] drainage catheter. Approximately 6000 cc of straw-clear ascites was removed, a sample of which was submitted to microbiology for culture and sensitivity. The drainage catheter was then removed and a sterile dressing was applied. Patient tolerated the procedure well without apparent complication. Infusion of 50 g 25% albumin was initiated during the paracentesis procedure. Impression: Successful, uneventful ultrasound-guided therapeutic paracentesis, as described.
== END | disposition home or self-care (01) ==
LOC: INTRAD 08:20
PROVIDERS: ATTEND Internal Medicine Gastroenterology
DX: R18.8 Other ascites (principal); E78.00 Pure hypercholesterolemia, unspecified; I48.91 Unspecified atrial fibrillation; I10 Essential (primary) hypertension; J44.9 Chronic obstructive pulmonary disease, unspecified; J45.909 Unspecified asthma, uncomplicated; F32.9 Major depressive disorder, single episode, unspecified; D64.9 Anemia, unspecified; K21.9 Gastro-esophageal reflux disease without esophagitis; Z86.73 Personal history of transient ischemic attack (TIA), and cerebral infarction without residual deficits
CPT/HCPCS: 36415; 49083; 85027; 85610; 87205; A4215; C1729; C1892; C1894; J2250; J3010; P9046

== ENCOUNTER 2016-07-20 06:22 | Outpatient (CLI) | payer BC ==
[~2016-07-20] VITALS: Ht 182.9 cm; Wt 81.6 kg
[2016-07-20] VITALS (11 sets, daily range): BP systolic 104–134; BP diastolic 63–86
[~2016-07-20 06:22] MED LIST changes: -ALBUMIN HUMAN 25% 100 ML IV ONE; +BENZ100C15 PO; -BENZ100C2 PO; -ESCI10TA PO; +ESCITALOPRAM OX10 MG PO; -LIDOCAINE 1% / SOD BICARB 8.4% 20 ML VIAL. IJ ONE; -MIDAZOLAM HCL/PF 2 MG/2 ML VIAL. IV ONE; -MIDAZOLAM HCL/PF 2 MG/2 ML VIAL. ONE; -fentaNYL PF VIAL 100 MCG/2 ML VIAL IV ONE; -fentaNYL PF VIAL 100 MCG/2 ML VIAL ONE
[2016-07-20 07:09] LABS: HEMATOCRIT 24.9 % (39.0-53.0); HEMOGLOBIN 7.4 g/dL (13.0-17.5); RED BLOOD COUNT 3.11 x10^6/uL (4.30-5.70); RED CELL DISTRIBUTION WIDTH 18.7 % (11.5-14.5); WHITE BLOOD COUNT 5.4 x10^3/uL (4.0-11.0)
[2016-07-20 07:15] LABS: CALCIUM 8.3 mg/dL (8.5-10.1); CREATININE 1.2 mg/dL (0.7-1.3); GFR 76.1; POTASSIUM 3.8 mmol/L (3.5-5.1)
[2016-07-20] MEDS ORDERED: IOHEXOL 300 MG/ML 100ML VIAL. ONE (07:21)
[2016-07-20] MEDS ORDERED: LIDOCAINE 2% 20 ML VIAL. ONE (07:22)
[2016-07-20 07:32] LABS: INR 1.4 (0.8-1.1); PROTHROMBIN TIME PATIENT 16.4 SEC (11.7-14.0)
[2016-07-20] MEDS ORDERED: VERAPAMIL 5 MG/2 ML VIAL. ONE (08:04)
[2016-07-20] MEDS ORDERED: NITROGLYCERIN 200 MCG/2 ML SYRINGE FOR CATH/VASC LAB. ONE (08:04)
[2016-07-20] MEDS ORDERED: fentaNYL PF VIAL 100 MCG/2 ML VIAL ONE (08:04)
[2016-07-20] MEDS ORDERED: HEPARIN for IV BOLUS 10,000 UNIT/10 ML VIAL. ONE (08:04)
[2016-07-20] MEDS ORDERED: MIDAZOLAM HCL/PF 2 MG/2 ML VIAL. ONE (08:05)
[2016-07-20] MEDS ORDERED: fentaNYL PF VIAL 100 MCG/2 ML VIAL IV ONE (08:45)
[2016-07-20] MEDS ORDERED: MIDAZOLAM HCL/PF 2 MG/2 ML VIAL. IV ONE (08:45)
[2016-07-20] MEDS ORDERED: LIDOCAINE 2% 20 ML VIAL. IJ ONE (08:45)
--- NOTE | 2016-07-20 08:57 | PDOC ---
MODERATE SEDATION ASSESSMENT RISKS/ALTERNATIVES Risks/Alternatives Risks and alternatives of this type of sedation and procedure discussed with: RISK/ALTERNATIVES: Patient H & P ON CHART H & P H & P on chart and reviewed for co-morbid conditions and appropriate labs. H&P ON CHART: Yes STATUS PREG STATUS ASSESSED: N/A MEDS/ALLERGIES REVIEWED Meds/Allergies Reviewed Medications and Allergies including time and route of recently administered narcotics and sedatives. MEDS/ALLERGIES REVIEWED: Yes ASA RATING ASA RATING: II AIRWAY ASSESSMENT Airway Assessment Airway patency, oral function limitations, presence of caps, crowns, dentures, partials, and ability to extend neck assessed. AIRWAY ASSESSMENT: Yes MALLAMPATI SCORE MALLAMPATI SCORE: II PRE-SEDATION ASSESSMENT PRE-SEDATION ASSESSMENT: Yes LOTUS PAK MD Jul 20, 2016 08:56
--- NOTE | 2016-07-20 11:02 | CARD ---
APPROVED REPORT Procedure(s) performed: Right heart catheterization INDICATION The indication(s) include : Dyspnea and pulmonary hypertension. PROCEDURE NARRATIVE After explaining the risks, benefits and alternative options, informed consent was obtained from isela ent. Patient was brought to the cardiac Wood Strip Block Floor Installer and his right groin was prepped and draped in the us ual fashion. 10 mL of 2% lidocaine was infiltrated into the skin and subcutaneous tissues for local a nesthesia. Venous access was obtained in the right common femoral vein and 8 [place] sheath was insert ed. A 7.5 [place] catheter was then advanced under fluoroscopic guidance and intracardiac pr essures, oxygen saturations and cardiac outputs by thermodilution method were recorded. Patient patrick ated the procedure well. Hemostasis was achieved using manual compression. There were no immediate co mplications. FINDINGS 1. Intracardiac pressures: Mean right atrial pressure 28 mmHg, right ventricular pressure 49/16 mm Hg, mean pulmonary capillary wedge pressure 23 mmHg, pulmonary artery pressure 47/22 mmHg, mean pulmo nary artery pressure 32 mmHg. 2. Oxygen saturations: Right atrium 33.3%, pulmonary artery 30.1%. No evidence of intracardiac fozia nt. 3. Cardiac output by thermodilution method 4.55 L/m. Conclusion 1. Left-sided congestive heart failure as evidenced by elevated primary capillary wedge pressure. M ild pulmonary hypertension. 2. No evidence of intracardiac shunt.
== END 2016-07-20 12:00 | disposition home or self-care (01) ==
LOC: CCL 06:22
PROVIDERS: ATTEND Internal Medicine Cardiovascular Disease
DX: R06.00 Dyspnea, unspecified (principal); I27.2 Other secondary pulmonary hypertension; H40.9 Unspecified glaucoma; I25.10 Atherosclerotic heart disease of native coronary artery without angina pectoris; I10 Essential (primary) hypertension; I48.91 Unspecified atrial fibrillation; K21.9 Gastro-esophageal reflux disease without esophagitis; J44.9 Chronic obstructive pulmonary disease, unspecified; J45.909 Unspecified asthma, uncomplicated; F41.9 Anxiety disorder, unspecified; D64.9 Anemia, unspecified; E78.00 Pure hypercholesterolemia, unspecified; Z86.69 Personal history of other diseases of the nervous system and sense organs; Z87.39 Personal history of other diseases of the musculoskeletal system and connective tissue
CPT/HCPCS: 36415; 80048; 85027; 85610; 85730; 93451; C1769; C1773; C1892; J2250; J3010

== ENCOUNTER 2016-07-27 08:12 | Outpatient (CLI) | payer BC ==
[~2016-07-27] VITALS: Ht 182.9 cm; Wt 81.6 kg
[2016-07-27] VITALS (14 sets, daily range): BP systolic 110–133; BP diastolic 64–85
[2016-07-27 08:37] LABS: INR 1.3 (0.8-1.1); PROTHROMBIN TIME PATIENT 15.5 SEC (11.7-14.0)
[2016-07-27 08:40] LABS: BASO # 0.1 x10^3/uL (0.0-0.2); BASO % 1 % (0-3); EOS % 1 % (0-3); HEMATOCRIT 26.6 % (39.0-53.0); HEMOGLOBIN 8.1 g/dL (13.0-17.5); LYMPH # 1.3 x10^3/uL (1.0-4.8); LYMPH % 23 % (24-48); MEAN CORPUSCULAR HEMOGLOBIN 24 pg (25-35); MEAN CORPUSCULAR HGB CONC 31 g/dL (31-37); MEAN CORPUSCULAR VOLUME 78 fL (79-100); MONO % 13 % (0-9); NEUT % 62 % (31-73); PLATELET COUNT 285 x10^3/uL (140-400); RED BLOOD COUNT 3.39 x10^6/uL (4.30-5.70); RED CELL DISTRIBUTION WIDTH 17.7 % (11.5-14.5); WHITE BLOOD COUNT 5.6 x10^3/uL (4.0-11.0)
[2016-07-27] MEDS ORDERED: LIDOCAINE 1% / SOD BICARB 8.4% 20 ML VIAL. IJ ONE ×2 (10:19→10:45)
[2016-07-27] MEDS ORDERED: fentaNYL PF VIAL 100 MCG/2 ML VIAL ONE (10:33)
[2016-07-27] MEDS ORDERED: MIDAZOLAM HCL/PF 5 MG/5 ML VIAL. ONE (10:33)
[2016-07-27] MEDS ORDERED: MIDAZOLAM HCL/PF 5 MG/5 ML VIAL. IV ONE (10:45)
[2016-07-27] MEDS ORDERED: fentaNYL PF VIAL 100 MCG/2 ML VIAL IV ONE ×2 (10:45→15:45)
[2016-07-27] MEDS ORDERED: ALBUMIN HUMAN 25% 100 ML IV ONE ×3 (10:53→12:15)
--- NOTE | 2016-07-27 10:58 | PDOC ---
MODERATE SEDATION ASSESSMENT RISKS/ALTERNATIVES Risks/Alternatives Risks and alternatives of this type of sedation and procedure discussed with: RISK/ALTERNATIVES: Patient H & P ON CHART H & P H & P on chart and reviewed for co-morbid conditions and appropriate labs. H&P ON CHART: Yes STATUS PREG STATUS ASSESSED: N/A MEDS/ALLERGIES REVIEWED Meds/Allergies Reviewed Medications and Allergies including time and route of recently administered narcotics and sedatives. MEDS/ALLERGIES REVIEWED: Yes ASA RATING ASA RATING: III AIRWAY ASSESSMENT Airway Assessment Airway patency, oral function limitations, presence of caps, crowns, dentures, partials, and ability to extend neck assessed. AIRWAY ASSESSMENT: Yes MALLAMPATI SCORE MALLAMPATI SCORE: II PRE-SEDATION ASSESSMENT PRE-SEDATION ASSESSMENT: Yes JOSE BUCKLEY MD Jul 27, 2016 10:58
--- NOTE | 2016-07-27 11:01 | PDOC1 ---
History and Physical Date of Procedure Date of Admission 07/27/16 Procedure Procedure Image guided Dx/Tx paracentesis Indication Indication 56 YO male with cirrhosis and with recurrent large volume ascites Past Medical History Past Medical History See Nursing Pre Procedure PMH Past Surgical History Past Surgical History See Nursing Pre procedure PSH Current Medications Current Medications Current Medications Lidocaine/Sodium Bicarbonate (Buffered Lidocaine 1%) 20 ml STK-MED ONCE IJ ; Start 07/27/16 at 10:19; Stop 07/27/16 at 10:20; Status DC Fentanyl Citrate (Fentanyl 2ml Vial) 100 mcg STK-MED ONCE .ROUTE ; Start at 10:33; Stop 07/27/16 at 10:34; Status DC Midazolam HCl (Versed) 5 mg STK-MED ONCE .ROUTE ; Start 07/27/16 at 10:33; Stop 07/27/16 at 10:34; Status DC Lidocaine/Sodium Bicarbonate (Buffered Lidocaine 1%) 20 ml 1X ONCE IJ ; Start 07/27/16 at 10:45; Stop 07/27/16 at 10:50; Status DC Midazolam HCl (Versed) 5 mg 1X ONCE IV ; Start 07/27/16 at 10:45; Stop at 10:50; Status DC Fentanyl Citrate (Fentanyl 2ml Vial) 200 mcg 1X ONCE IV ; Start 07/27/16 at 10: 45; Stop 07/27/16 at 10:50; Status DC Albumin Human 100 ml @ 100 mls/hr 1X ONCE IV ; Start 07/27/16 at 11:00; Stop 07/27/16 at 11:59 Albumin Human 100 ml @ As Directed STK-MED ONCE IV ; Start 07/27/16 at 10:53; Stop 07/27/16 at 10:54; Status DC Active Scripts Active Xarelto (Rivaroxaban) 10 Mg Tablet 20 Mg PO DAILYWSUP Lasix (Furosemide) 40 Mg Tablet 40 Mg PO BID Amiodarone Hcl 200 Mg Tablet 200 Mg PO HS Klor-Con M10 (Potassium Chloride) 10 Meq Tab.er.prt 20 Meq PO DAILYWBKFT Miralax (Polyethylene Glycol 3350) 17 Gm Powd.pack 17 Gm PO DAILY Lanoxin (Digoxin) 125 Mcg Tablet 125 Mcg PO DAILY Metoprolol Succinate ( Xl ) (Metoprolol Succinate) 25 Mg Tab.er.24h 25 Mg PO DAILY Reported Escitalopram Oxalate 10 Mg Tablet 0.5 Tab PO DAILY Pantoprazole Sodium 40 Mg Tablet.dr 40 Mg PO QHS Ferrous Sulfate 325 Mg Tablet 325 Mg PO DAILY Montelukast Sodium Tablet (Montelukast Sodium) 10 Mg Tablet 10 Mg PO HS Travatan Z (Travoprost) 5 Ml Drops 1 Drop OU HS Allergies Allergies: Coded Allergies: No Known Drug Allergies (Unverified , 09/15/15) Physical Exam Vital Signs Vital Signs Date Time Temp Pulse Resp B/P (MAP) Pulse Ox O2 Delivery O2 Flow Rate FiO2 07/27/16 10:48 72 20 96 Nasal Cannula 3.0 07/27/16 08:44 97.7 115/76 (89) 97.7 Lungs: Clear to auscultation Heart: Regular rate Psych/Mental Status: Mental status NL Other Abdomen distended with fluid wave Assessment Assessment 56 YO male with cirrhosis and recurrent large volume ascites Problems: Plan Plan Image guided Dx/Tx paracentesis JOSE BUCKLEY MD Jul 27, 2016 11:01
--- NOTE | 2016-07-27 11:04 | PDOC ---
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 Condition of Patient Condition of Patient Stable. No apparent complication. Infusion of 50 grams of 25% albumin was initiated during the paracentesis procedure. Disposition Disposition Home from [facility] post 1 hr recovery, if no problems. F/u with GI Full report to follow. JOSE BUCKLEY MD Jul 27, 2016 11:04
[2016-07-27 12:44] LABS: BF CLARITY HAZY; BF COLOR YELLOW
--- NOTE | 2016-07-28 07:18 | RAD ---
CT-guided diagnostic and therapeutic paracentesis Indication: 56-year-old male history of congestive heart failure and with cirrhosis, with recurrent, symptomatic large-volume ascites. Anesthesia: 70 minutes moderate sedation was provided utilizing a total of 0.5 mg Versed and 25 mcg fentanyl, IV. The patient was appropriately monitored by a qualified independent observer throughout the time of moderate sedation. Procedure: Informed consent was obtained from the patient. He was placed supine on the CT scanner. Preliminary noncontrast CT images were obtained through abdomen and pelvis. These images confirmed the presence of a large volume of abdominal and pelvic ascites. A right anterolateral mid abdominal skin site suitable for CT-guided paracentesis was selected and marked. The area was prepped and draped in usual sterile fashion. Conscious sedation was provided with IV Versed and fentanyl. Using aseptic technique, local anesthesia, and CT guidance, a micropuncture sheath was successfully introduced into right lateral peritoneal cavity. The sheath was then exchanged over a guidewire for an 8 Wolof drainage catheter. Approximately 7300 cc of yellow-slightly hazy ascites was then easily removed, samples which were submitted to the clinical laboratory for routine evaluation per protocol. Completion CT images revealed near complete resolution of ascites. The drainage catheter was removed and a sterile dressing was applied. Patient tolerated the procedure well without apparent complication. Infusion of 50 g 25% albumin was initiated during the paracentesis procedure. Impression: Successful, uneventful CT-guided diagnostic and therapeutic paracentesis, as described. PQRS compliance statement: One or more of the following individualized dose reduction techniques was utilized for this CT procedure: 1. Automated exposure control. 2. Adjustment of MA and/or KV according to patient size. 3. Iterative reconstruction technique.
[2016-07-28 13:24] LABS: BODY FLUID ALBUMIN 1.7 g/dL (.)
== END 2016-07-27 13:05 | disposition home or self-care (01) ==
LOC: INTRAD 08:12
PROVIDERS: ATTEND Internal Medicine Gastroenterology
DX: R18.8 Other ascites (principal); K74.60 Unspecified cirrhosis of liver; I50.9 Heart failure, unspecified; H40.9 Unspecified glaucoma; E78.00 Pure hypercholesterolemia, unspecified; I25.10 Atherosclerotic heart disease of native coronary artery without angina pectoris; I48.91 Unspecified atrial fibrillation; I10 Essential (primary) hypertension; K21.9 Gastro-esophageal reflux disease without esophagitis; J44.9 Chronic obstructive pulmonary disease, unspecified; J45.909 Unspecified asthma, uncomplicated; F32.9 Major depressive disorder, single episode, unspecified; D64.9 Anemia, unspecified; Z86.69 Personal history of other diseases of the nervous system and sense organs; Z87.39 Personal history of other diseases of the musculoskeletal system and connective tissue; Z82.49 Family history of ischemic heart disease and other diseases of the circulatory system
CPT/HCPCS: 36415; 49083; 82042; 84157; 85027; 85610; 87205; 89050; 99152; 99153; A4215; C1729; C1892; C1894; J2250; J3010; P9046

== ENCOUNTER → 2016-08-17 | Day surgery (SDC) | payer BC ==
[~2016-08-17] MED LIST changes: +HYDROmorphone 2 MG/ML VIAL IV PRN; +IV RINGERS,LACTATED 1000ML 1,000 ML IV SCH; +LIDOCAINE 1% 1 ML SYRINGE. ID PRN; +MORPHINE SULFATE 2 MG/ML DISP.SYRIN. IV PRN; +PROCHLORPERAZINE 10 MG/2 ML VIAL. IV PRN; +PROPOFOL 20 ML IV ONE; +fentaNYL PF VIAL 100 MCG/2 ML VIAL IV PRN
--- NOTE | 2016-08-17 11:16 | PDOC1 ---
HISTORY & PHYSICAL H&P Arron Joaquin 1960 06/25/2016 01:10 PM 02/07 [facility], [facility] OUR PATIENTS COME FIRST [address] [place] [address]. [phone] Patient: Arron Joaquin Date of : 1960 Date: 06/25/2016 1:10 PM Visit Type: Office Visit This 55 year old male presents for Anemia and Biopsy results. History of Present Illness: 1. Anemia Type of anemia was acquired for deficiency anemia (iron deficient). Additional information: Has low hgb around 7.5. 2. Biopsy results Patient had liver bx which is consistent with venous out flow obstruction. Had elevated free hepatic venous pressure and could not get any wedge pressure done due to significantly dilated hepatic veins. This indicates that patient has severe chronic passive congestion of the liver most likely from right sided heart failure. Patient had seen Dr. Pace and is undergoing some evaluation. Patient also has been scheduled for evaluation at for treatment of his atrial fibrillation. INTAKE COMMENTS: Intake Comments: Nurse Note: the pt is here today to discuss results of a Liver BX that was done. The pt also has anemia, last Hgb was 8.0 on 06/23/16. PROBLEM LIST: Problem Description Onset Date Skin lesions 05/26/2015 Acute bilateral low back pain without sciatica 05/26/2015 Weight gain 05/26/2015 Glaucoma 11/01/2012 Headache 11/01/2012 Essential hypertension 11/01/2012 Allergic rhinitis 11/01/2012 Hoarseness of voice 10/03/2015 Exercise hypoxemia 09/26/2015 Chronic systolic CHF (congestive heart failure) 08/26/2015 Accelerated hypertension 08/26/2015 Right-sided heart failure 09/24/2015 Anemia 07/31/2013 Iron deficiency anemia due to chronic blood loss 12/26/2014 Mixed hyperlipidemia 12/26/2014 Acute on chronic systolic (congestive) heart failure 07/21/2015 Atrial fibrillation 05/29/2013 Gastrointestinal hemorrhage associated with anorectal source 06/23/2015 Hyperlipidemia 04/04/2014 PFO (patent foramen ovale) 07/21/2015 Rectal bleeding 09/15/2015 Acute respiratory failure with hypoxia 09/15/2015 Gastroesophageal reflux disease 03/26/2013 PAST MEDICAL/SURGICAL HISTORY (Detailed) Disease/disorder Onset Date Management Date Comments Cardiac pacemaker 10/19/2013 Anemia cirrhosis liver secondary to ETOH Duodenitis 03/08/2013 GERD heart murmur OHS at 7 yo Helicobacter pylori in gastric biopsy EGD with biopsy 03/08/2013 Hemorrhoids R sided heart failure DIAGNOSTICS HISTORY: Test Ordered Interpretation Result completed EGD 02/14/2013 abnormal Imp: Duodenitis(bx), Gastritis(bx), Grade ll Erosive esophagitsi, small hiatal hernia, Schatzki's Ring, BX: duodenal mucosa within normal limits, nild superficial chronic gastritis with focal activity, immunohistochemical stain positive for Helicobactor species 03/08/2013 EGD 10/24/2013 abnormal Imp: hiatal hernia 11/06/2013 Colonoscopy 10/24/2013 abnormal Imp: External hemorrhoids/internal hemorrhoids 11/06/2013 Test Ordered Ordering Comments Modifier EGD 02/14/2013 EGD 10/24/2013 Colonoscopy 10/24/2013 Medications (Active): Started Medication Directions Instruction Stopped amiodarone 200 mg tablet take 1 tablet by ORAL route every day 04/08/2016 Centrum Silver Ultra Men's 300 mcg-600 mcg-300 mcg tablet take 1 tab po qd 04/08/2016 digoxin 125 mcg tablet TAKE 1 TABLET BY MOUTH EVERY DAY 06/16/2016 ferrous sulfate 325 mg (65 mg iron) tablet TAKE 1 TABLET BY ORAL ROUTE EVERY DAY 04/12/2016 Lasix 40 mg tablet TAKE 1 1/2 TABLET BY MOUTH EVERY DAY 04/08/2016 Lexapro 5 mg tablet take 1 tablet by oral route every day 06/16/2016 metoprolol tartrate 25 mg tablet take 1 tablet by oral route 2 times every day-Hold if SBP is less than 110 PHARMACY: Pt has a few Meto succinate left-will cut them in 1/2 until gone. Pt will then obtain this script after Metoprolol succ completed. 07/21/2015 Miralax 17 gram oral powder packet take 1 packet by oral route every day mixed with 8 oz. water, juice, soda, coffee or tea 06/18/[address] 40 MG TAB TAKE ONE TABLET BY MOUTH EVERY MORNING 03/15/[address] ER 20 MEQ TABLET TAKE 1 TABLET BY MOUTH EVERY DAY 04/08/2016 ProAir HFA 90 mcg/actuation aerosol inhaler inhale 2 puff by inhalation route every 6 hours as needed 05/20/2016 SINGULAIR 10 MG TABLET TAKE 1 TABLET BY MOUTH EVERY DAY 06/01/2016 SYMBICORT 160-4.5 MCG INHALER INHALE 2 PUFFS BY MOUTH EVERY MORNING AND EVENING DIRECTED Travatan Z 0.004 % Eye Drops instill 1 drop by ophthalmic route every day into affected eye(s) in the evening 06/27/2014 Tylenol Extra Strength 500 mg tablet 1 tablet by oral route every 6 hours as needed 04/26/2016 XARELTO 20 MG TABLET TAKE 1 TABLET DAILY Allergies: Ingredient Reaction Medication Name Comment NO KNOWN ALLERGIES REVIEW OF SYSTEMS System Neg/Pos Details Constitutional Negative Chills, fever, malaise and weight loss. ENMT Negative Sore throat. Eyes Negative Double vision. Respiratory Negative Dyspnea and wheezing. Cardio Negative Chest pain and irregular heartbeat/palpitations. GI Positive See HPI. GI Negative See HPI. Negative Dysuria and hematuria. Endocrine Negative Cold intolerance and heat intolerance. Psych Negative Anxiety. Integumentary Negative Hives and rash. MS Negative Joint pain. Corey/Lymph Negative Easy bleeding and easy bruising. Allergic/Immuno Negative Food allergies. PHYSICAL EXAM: Exam Findings Details Constitutional Normal Well developed. Eyes Normal Conjunctiva - Right: Normal, Left: Normal. Sclera - Right: Normal, Left: Normal. Nasopharynx Normal Lips/teeth/gums - Normal. Neck Exam Normal Inspection - Normal. Thyroid gland - Normal. Respiratory Normal Inspection - Normal. Auscultation - Normal. Cardiovascular Normal Regular rate and rhythm. No murmurs, gallops, or rubs. Vascular Normal Pulses - Carotids: Normal, Femoral: Normal, Dorsalis pedis: Normal. Abdomen Normal Inspection - Normal. Anterior palpation - No guarding. No abdominal tenderness. No hepatic enlargement. No splenic enlargement. No hernia. No ascites. Skin Normal Inspection - Normal. Extremity Normal No edema. Psychiatric * Oriented to time, place, person and situation. Psychiatric Normal Appropriate mood and effect. Assessment/Plan # Detail Type Description 1. Assessment Iron deficiency anemia due to chronic blood loss (D50.0). Patient Plan schedule EGD at [facility] Plan Orders Further diagnostic evaluations ordered today include(s) EGD to be performed today. He is to schedule a follow-up visit with Arnulfo Roman MD upon completion of work-up 2. Assessment Other ascites (R18.8). Patient Plan Continue diuretics and other treatment for his heart failure. Periodic paracentesis as needed. Currently needs to have paracentesis every month. Patient to have further evaluation by his airport screener. Electronically signed by: Arnulfo Roman MD 06/25/2016 01:33 PM Document generated by: Arnulfo Roman 06/25/2016 01:33 PM Fatmata Kearney MD, [facility]; Raul Dallas MD Internal Medicine; Laura Rojas MD, Internal Medicine; Idris Roman MD Internal Medicine; Arnulfo Roman MD, Gastroenterology; Miguelito Menjivar MD, Rheumatology, S. Mitch Stanley, Physical Medicine/Rehab J. Rachel STATOR WINDER ------ 08/17/16 Patient seen and examined. No change in H&P. ARNULFO ROMAN MD Aug 17, 2016 11:15
[2016-08-17 12:00] VITALS: BP 104/68
== END | disposition home or self-care (01) ==
LOC: ENDOS 10:56
PROVIDERS: ATTEND Internal Medicine Gastroenterology
DX: R58 Hemorrhage, not elsewhere classified (principal); H40.9 Unspecified glaucoma; E78.00 Pure hypercholesterolemia, unspecified; I48.91 Unspecified atrial fibrillation; I10 Essential (primary) hypertension; J44.9 Chronic obstructive pulmonary disease, unspecified; J45.909 Unspecified asthma, uncomplicated; K21.9 Gastro-esophageal reflux disease without esophagitis; F32.9 Major depressive disorder, single episode, unspecified; F17.200 Nicotine dependence, unspecified, uncomplicated; D64.9 Anemia, unspecified; Z86.69 Personal history of other diseases of the nervous system and sense organs; Z86.73 Personal history of transient ischemic attack (TIA), and cerebral infarction without residual deficits; Z82.49 Family history of ischemic heart disease and other diseases of the circulatory system
CPT/HCPCS: 43235; J2704

== ENCOUNTER → 2016-08-23 | Outpatient (CLI) | payer BC ==
[~2016-08-23] VITALS: Ht 182.9 cm; Wt 81.6 kg
[2016-08-23] VITALS (11 sets, daily range): BP systolic 115–137; BP diastolic 67–84
[~2016-08-23] MED LIST changes: +ALBUMIN HUMAN 25% 100 ML IV ONE; +ALBUMIN HUMAN 25% 200 ML IV ONE; -HYDROmorphone 2 MG/ML VIAL IV PRN; -IV RINGERS,LACTATED 1000ML 1,000 ML IV SCH; +LIDOCAINE 1% / SOD BICARB 8.4% 20 ML VIAL. IJ ONE; -LIDOCAINE 1% 1 ML SYRINGE. ID PRN; +MIDAZOLAM HCL/PF 2 MG/2 ML VIAL. IV ONE; +MIDAZOLAM HCL/PF 2 MG/2 ML VIAL. ONE; -MORPHINE SULFATE 2 MG/ML DISP.SYRIN. IV PRN; -PROCHLORPERAZINE 10 MG/2 ML VIAL. IV PRN; -PROPOFOL 20 ML IV ONE; +fentaNYL PF VIAL 100 MCG/2 ML VIAL IV ONE; -fentaNYL PF VIAL 100 MCG/2 ML VIAL IV PRN; +fentaNYL PF VIAL 100 MCG/2 ML VIAL ONE
[2016-08-23 09:06] LABS: BASO % 1 % (0-3); EOS % 1 % (0-3); HEMATOCRIT 27.6 % (39.0-53.0); HEMOGLOBIN 8.5 g/dL (13.0-17.5); LYMPH % 22 % (24-48); MEAN CORPUSCULAR HEMOGLOBIN 25 pg (25-35); MEAN CORPUSCULAR HGB CONC 31 g/dL (31-37); MEAN CORPUSCULAR VOLUME 80 fL (79-100); MONO % 12 % (0-9); NEUT % 64 % (31-73); PLATELET COUNT 224 x10^3/uL (140-400); RED BLOOD COUNT 3.47 x10^6/uL (4.30-5.70); RED CELL DISTRIBUTION WIDTH 16.9 % (11.5-14.5); WHITE BLOOD COUNT 4.5 x10^3/uL (4.0-11.0)
[2016-08-23 09:14] LABS: INR 1.4 (0.8-1.1); PROTHROMBIN TIME PATIENT 16.6 SEC (11.7-14.0)
--- NOTE | 2016-08-23 10:33 | RAD ---
Ultrasound-guided paracentesis. 08/23/2016 Indication: Recurrent ascites Procedure: The risks and benefits of the procedure were discussed the patient. Informed consent was obtained. Patient was brought to the ultrasound suite placed supine position. A timeout procedure was performed. The right lower quadrant was prepped and draped in sterile fashion. Limited abdominal ultrasound was performed demonstrating large volume ascites. The appropriate site for skin treatment slice 1% lidocaine without epinephrine was administered to the skin and subcutaneous tissues. Under direct ultrasound guidance a 5 Nigerien sheath needle was advanced to the peritoneum. The inner stylette was removed. A Bentson wire was advanced in the peritoneum, over which, following dilatation, an 8 Nigerien locking pigtail train was advanced into the peritoneum. 6.6 L of ascites is aspirated. The pigtail drainage catheter was removed. Manual pressure was held for several minutes. No immediate complications were identified. The procedure was performed under conscious sedation including continuous cardiopulmonary monitoring via a dedicated sedation nurse. Sedation time: 35 minutes Impression: Successful ultrasound-guided paracentesis with removal of 6.6 L of ascites..
[2016-08-23 12:02] LABS: BF CLARITY TURBID; BF COLOR YELLOW
== END | disposition home or self-care (01) ==
LOC: INTRAD 08:28
PROVIDERS: ATTEND Internal Medicine
DX: R18.8 Other ascites (principal); H40.9 Unspecified glaucoma; E78.00 Pure hypercholesterolemia, unspecified; G62.9 Polyneuropathy, unspecified; I50.9 Heart failure, unspecified; I48.91 Unspecified atrial fibrillation; J44.9 Chronic obstructive pulmonary disease, unspecified; J45.909 Unspecified asthma, uncomplicated; K21.9 Gastro-esophageal reflux disease without esophagitis; D64.9 Anemia, unspecified; F32.9 Major depressive disorder, single episode, unspecified; F17.200 Nicotine dependence, unspecified, uncomplicated; Z86.69 Personal history of other diseases of the nervous system and sense organs; Z82.49 Family history of ischemic heart disease and other diseases of the circulatory system
CPT/HCPCS: 36415; 49083; 85027; 85610; 87205; 89050; 99152; 99153; C1887; C1892; C1894; J2250; J3010; P9046

== ENCOUNTER → 2016-09-23 | Outpatient (CLI) | payer BC ==
[~2016-09-23] VITALS: Ht 182.9 cm; Wt 81.6 kg
[2016-09-23] VITALS (9 sets, daily range): BP systolic 117–138; BP diastolic 79–88
[~2016-09-23] MED LIST changes: -ALBUMIN HUMAN 25% 100 ML IV ONE; -ALBUMIN HUMAN 25% 200 ML IV ONE; +ALBUMIN HUMAN 25% 50 ML IV ONE
[2016-09-23 09:04] LABS: BASO % 1 % (0-3); EOS % 1 % (0-3); HEMATOCRIT 32.8 % (39.0-53.0); HEMOGLOBIN 10.4 g/dL (13.0-17.5); LYMPH % 25 % (24-48); MEAN CORPUSCULAR HEMOGLOBIN 26 pg (25-35); MEAN CORPUSCULAR HGB CONC 32 g/dL (31-37); MEAN CORPUSCULAR VOLUME 83 fL (79-100); MONO % 14 % (0-9); NEUT % 60 % (31-73); PLATELET COUNT 238 x10^3/uL (140-400); RED BLOOD COUNT 3.98 x10^6/uL (4.30-5.70); RED CELL DISTRIBUTION WIDTH 17.4 % (11.5-14.5)
[2016-09-23 09:17] LABS: INR 1.4 (0.8-1.1); PROTHROMBIN TIME PATIENT 16.1 SEC (11.7-14.0)
--- NOTE | 2016-09-23 10:05 | PDOC ---
MODERATE SEDATION ASSESSMENT RISKS/ALTERNATIVES Risks/Alternatives Risks and alternatives of this type of sedation and procedure discussed with: RISK/ALTERNATIVES: Patient H & P ON CHART H & P H & P on chart and reviewed for co-morbid conditions and appropriate labs. H&P ON CHART: Yes STATUS PREG STATUS ASSESSED: Yes MEDS/ALLERGIES REVIEWED Meds/Allergies Reviewed Medications and Allergies including time and route of recently administered narcotics and sedatives. MEDS/ALLERGIES REVIEWED: Yes ASA RATING ASA RATING: II AIRWAY ASSESSMENT Airway Assessment Airway patency, oral function limitations, presence of caps, crowns, dentures, partials, and ability to extend neck assessed. AIRWAY ASSESSMENT: Yes MALLAMPATI SCORE MALLAMPATI SCORE: II PRE-SEDATION ASSESSMENT PRE-SEDATION ASSESSMENT: Yes ANGÉLICA RODRIGUEZ MD Sep 23, 2016 10:05
--- NOTE | 2016-09-23 10:05 | PDOC1 ---
History and Physical Date of Procedure Date of Admission History of Present Illness Reason for Visit Ascites Past Medical History Past Medical History see nursing preop assessment Current Medications Current Medications Current Medications Lidocaine/Sodium Bicarbonate (Buffered Lidocaine 1%) 20 ml STK-MED ONCE IJ ; Start 09/23/16 at 09:11; Stop 09/23/16 at 09:12; Status DC Midazolam HCl (Versed) 2 mg STK-MED ONCE .ROUTE ; Start 09/23/16 at 09:44; Stop 09/23/16 at 09:45; Status DC Fentanyl Citrate (Fentanyl 2ml Vial) 100 mcg STK-MED ONCE .ROUTE ; Start at 09:45; Stop 09/23/16 at 09:46; Status DC Lidocaine/Sodium Bicarbonate (Buffered Lidocaine 1%) 5 ml 1X ONCE IJ ; Start at 10:00; Stop 09/23/16 at 10:01; Status DC Midazolam HCl (Versed) 0.5 mg 1X ONCE IV ; Start 09/23/16 at 10:00; Stop at 10:01; Status DC Fentanyl Citrate (Fentanyl 2ml Vial) 25 mcg 1X ONCE IV ; Start 09/23/16 at 10: 00; Stop 09/23/16 at 10:01; Status DC Albumin Human 50 ml @ 50 mls/hr 1X ONCE IV ; Start 09/23/16 at 10:00; Stop at 10:59 Active Scripts Active Xarelto (Rivaroxaban) 10 Mg Tablet 20 Mg PO DAILYWSUP Lasix (Furosemide) 40 Mg Tablet 40 Mg PO BID Amiodarone Hcl 200 Mg Tablet 200 Mg PO HS Klor-Con M10 (Potassium Chloride) 10 Meq Tab.er.prt 20 Meq PO DAILYWBKFT Miralax (Polyethylene Glycol 3350) 17 Gm Powd.pack 17 Gm PO DAILY Lanoxin (Digoxin) 125 Mcg Tablet 125 Mcg PO DAILY Metoprolol Succinate ( Xl ) (Metoprolol Succinate) 25 Mg Tab.er.24h 25 Mg PO DAILY Reported Escitalopram Oxalate 10 Mg Tablet 0.5 Tab PO DAILY Pantoprazole Sodium 40 Mg Tablet.dr 40 Mg PO QHS Ferrous Sulfate 325 Mg Tablet 325 Mg PO DAILY Montelukast Sodium Tablet (Montelukast Sodium) 10 Mg Tablet 10 Mg PO HS Travatan Z (Travoprost) 5 Ml Drops 1 Drop OU HS Allergies Allergies: Coded Allergies: No Known Drug Allergies (Unverified , 08/17/16) Physical Exam Vital Signs Vital Signs Date Time Temp Pulse Resp B/P (MAP) Pulse Ox O2 Delivery O2 Flow Rate FiO2 09/23/16 09:57 83 15 93 Nasal Cannula 2.0 09/23/16 09:11 98.0 130/87 (101) 98.0 Other see nursing pre-op assessment Assessment Assessment ascites Problems: Plan Plan US paracentesis ANGÉLICA RODRIGUEZ MD Sep 23, 2016 10:05
--- NOTE | 2016-09-23 10:36 | PDOC ---
BRIEF OPERATIVE NOTE Pre-Op Diagnosis ascites Post-Op Diagnosis same Procedure Performed US paracentesis Surgeon Miguel A Anesthesia Type: Conscious Sedation Findings 4200 cc thin yellow ascites Complications No immediate ANGÉLICA RODRIGUEZ MD Sep 23, 2016 10:36
--- NOTE | 2016-09-23 15:52 | RAD ---
Procedure: Ultrasound guided paracentesis Clinical Indication: 56-year-old with abdominal ascites Sedation: Local anesthesia only Antibiotics: None Fluoro Time: None Contrast: Not applicable Sterility: The procedure was performed in its entirety using appropriate elements of sterile technique. Consent: The procedure was explained in its entirety to the patient or the patients designated account manager sales representative by a member of the treatment team, including a discussion of the risks, benefits and commonly accepted alternatives to the procedure, as well as the expected consequences of no therapy whatsoever. Discussion of the risks included, but was not limited to, those that are most frequent and those that are rare but possibly severe or life-threatening, as well as the possibility of unforeseen complications. Technique and Findings: Following informed consent, the patient was prepped and draped in the usual sterile fashion. Ultrasound interrogation of the abdomen revealed abdominal ascites. A hard copy ultrasound image was recorded. 1% Lidocaine was used to achieve local anesthesia over the area of interest, and a 6 Mongolian Mfwe-H-Qbuocatm catheter was advanced into the peritoneal cavity under ultrasound guidance. 4200 cc of thin grisel ascites was then withdrawn. The catheter was removed and hemostasis was achieved with manual compression. Complications: No immediate Impression: 1. Ultrasound-guided paracentesis as described
== END | disposition home or self-care (01) ==
LOC: INTRAD 08:34
PROVIDERS: ATTEND Internal Medicine
DX: R18.8 Other ascites (principal); E78.00 Pure hypercholesterolemia, unspecified; I48.91 Unspecified atrial fibrillation; K21.9 Gastro-esophageal reflux disease without esophagitis; J44.9 Chronic obstructive pulmonary disease, unspecified; J45.909 Unspecified asthma, uncomplicated; D64.9 Anemia, unspecified; F32.9 Major depressive disorder, single episode, unspecified; I11.0 Hypertensive heart disease with heart failure; I50.9 Heart failure, unspecified; Z86.73 Personal history of transient ischemic attack (TIA), and cerebral infarction without residual deficits; Z86.69 Personal history of other diseases of the nervous system and sense organs; Z87.39 Personal history of other diseases of the musculoskeletal system and connective tissue
CPT/HCPCS: 36415; 49083; 85025; 85610; 99152; 99153; J2250; J3010

== ENCOUNTER → 2016-10-13 | Outpatient (CLI) | payer BC ==
[2016-09-23 11:17] VITALS: BP 127/79
[~2016-10-13] MED LIST changes: -ALBUMIN HUMAN 25% 50 ML IV ONE; -LIDOCAINE 1% / SOD BICARB 8.4% 20 ML VIAL. IJ ONE; +METO-239 PO; -METO25TA9 PO; -MIDAZOLAM HCL/PF 2 MG/2 ML VIAL. IV ONE; -MIDAZOLAM HCL/PF 2 MG/2 ML VIAL. ONE; -fentaNYL PF VIAL 100 MCG/2 ML VIAL IV ONE; -fentaNYL PF VIAL 100 MCG/2 ML VIAL ONE
--- NOTE | 2016-10-13 15:46 | KCIC ---
History: Pain in the right hand, limited mobility in the thumb. Comparison: None. Findings: PA, lateral, and oblique views of the right hand. No acute fracture or dislocation is identified. Moderate degenerative change is seen involving the 1st CMC joint. There is also mild-moderate degenerative change involving the 1st MCP joint. Mild osteoarthritic change is seen involving the 3rd PIP joint. Mild osteoarthritis is also seen involving the 3rd and 4th MCP joints. Impression: 1. No acute osseous traumatic injury identified. 2. Degenerative changes involving multiple joints. Electronically signed by: Raul Aponte MD (10/13/2016 3:43 PM) [place] [id number]
== END | disposition home or self-care (01) ==
LOC: KCIC 11:36
PROVIDERS: ATTEND Internal Medicine
DX: M79.641 Pain in right hand (principal); M15.8 Other polyosteoarthritis
CPT/HCPCS: 73130

== ENCOUNTER 2016-10-25 06:51 | Outpatient (CLI) | payer BC ==
[~2016-10-25] VITALS: Ht 182.9 cm; Wt 80.7 kg
[2016-10-25] VITALS (11 sets, daily range): BP systolic 114–140; BP diastolic 74–87
[2016-10-25 07:25] LABS: BASO # 0.1 x10^3/uL (0.0-0.2); BASO % 2 % (0-3); EOS % 1 % (0-3); HEMATOCRIT 36.3 % (39.0-53.0); HEMOGLOBIN 11.1 g/dL (13.0-17.5); LYMPH # 1.1 x10^3/uL (1.0-4.8); LYMPH % 22 % (24-48); MEAN CORPUSCULAR HEMOGLOBIN 27 pg (25-35); MEAN CORPUSCULAR HGB CONC 31 g/dL (31-37); MEAN CORPUSCULAR VOLUME 88 fL (79-100); MONO % 11 % (0-9); NEUT % 64 % (31-73); PLATELET COUNT 177 x10^3/uL (140-400); RED BLOOD COUNT 4.14 x10^6/uL (4.30-5.70); RED CELL DISTRIBUTION WIDTH 17.4 % (11.5-14.5); WHITE BLOOD COUNT 4.9 x10^3/uL (4.0-11.0)
[2016-10-25 07:36] LABS: INR 1.4 (0.8-1.1); PROTHROMBIN TIME PATIENT 16.5 SEC (11.7-14.0)
[2016-10-25] MEDS ORDERED: LIDOCAINE 1% / SOD BICARB 8.4% 20 ML VIAL. IJ ONE ×2 (09:16→09:30)
--- NOTE | 2016-10-25 10:47 | PDOC1 ---
History and Physical Date of Procedure Date of Admission History of Present Illness Reason for Visit Ascites Past Medical History Past Medical History See nursing pre-op assessment Current Medications Current Medications Current Medications Lidocaine/Sodium Bicarbonate (Buffered Lidocaine 1%) 20 ml STK-MED ONCE IJ ; Start 10/25/16 at 09:16; Stop 10/25/16 at 09:17; Status DC Lidocaine/Sodium Bicarbonate (Buffered Lidocaine 1%) 20 ml 1X ONCE IJ Last administered on 10/25/16t 09:58; Start 10/25/16 at 09:30; Stop 10/25/16 at 09:38 ; Status DC Active Scripts Active Xarelto (Rivaroxaban) 10 Mg Tablet 20 Mg PO DAILYWSUP Lasix (Furosemide) 40 Mg Tablet 40 Mg PO BID Amiodarone Hcl 200 Mg Tablet 200 Mg PO HS Klor-Con M10 (Potassium Chloride) 10 Meq Tab.er.prt 20 Meq PO DAILYWBKFT Miralax (Polyethylene Glycol 3350) 17 Gm Powd.pack 17 Gm PO DAILY Lanoxin (Digoxin) 125 Mcg Tablet 125 Mcg PO DAILY Metoprolol Succinate ( Xl ) (Metoprolol Succinate) 25 Mg Tab.er.24h 25 Mg PO DAILY Reported Escitalopram Oxalate 10 Mg Tablet 0.5 Tab PO DAILY Pantoprazole Sodium 40 Mg Tablet.dr 40 Mg PO QHS Ferrous Sulfate 325 Mg Tablet 325 Mg PO DAILY Montelukast Sodium Tablet (Montelukast Sodium) 10 Mg Tablet 10 Mg PO HS Travatan Z (Travoprost) 5 Ml Drops 1 Drop OU HS Allergies Allergies: Coded Allergies: No Known Drug Allergies (Unverified , 08/17/16) Physical Exam Vital Signs Vital Signs Date Time Temp Pulse Resp B/P (MAP) Pulse Ox O2 Delivery O2 Flow Rate FiO2 10/25/16 10:20 78 114/77 (89) 98 Nasal Cannula 3.0 10/25/16 09:56 20 10/25/16 07:27 98.2 98.2 Other see nursing assessment Assessment Assessment Ascites Problems: Plan Plan US Paracentesis ANGÉLICA RODRIGUEZ MD Oct 25, 2016 10:47
--- NOTE | 2016-10-25 10:48 | PDOC ---
BRIEF OPERATIVE NOTE Pre-Op Diagnosis Ascites Post-Op Diagnosis same Procedure Performed US paracentesis Surgeon Miguel A Anesthesia Type: Local Specimens Obtained 2910 cc thin yellow fluid Complications No immediate ANGÉLICA RODRIGUEZ MD Oct 25, 2016 10:48
[2016-10-25 13:56] LABS: BF COLOR YELLOW
[2016-10-25 13:57] LABS: BF CLARITY CLEAR
[2016-10-26 11:20] LABS: BODY FLUID ALBUMIN 2.2 g/dL (.)
--- NOTE | 2016-10-26 11:38 | RAD ---
Procedure: Ultrasound guided paracentesis Clinical Indication: 56-year-old with recurrent abdominal ascites Sedation: Local anesthesia only Antibiotics: None Fluoro Time: None Contrast: Not applicable Sterility: The procedure was performed in its entirety using appropriate elements of sterile technique. Consent: The procedure was explained in its entirety to the patient or the patients designated sales representative public utilities by a member of the treatment team, including a discussion of the risks, benefits and commonly accepted alternatives to the procedure, as well as the expected consequences of no therapy whatsoever. Discussion of the risks included, but was not limited to, those that are most frequent and those that are rare but possibly severe or life-threatening, as well as the possibility of unforeseen complications. Technique and Findings: Following informed consent, the patient was prepped and draped in the usual sterile fashion. Ultrasound interrogation of the abdomen revealed abdominal ascites. A hard copy ultrasound image was recorded. 1% Lidocaine was used to achieve local anesthesia over the area of interest, and a 6 Dominican Gfjf-O-Gbkdxooe catheter was advanced into the peritoneal cavity under ultrasound guidance. 2910 cc of thin yellow ascites was then withdrawn. The catheter was removed and hemostasis was achieved with manual compression. Complications: No immediate Impression: 1. Ultrasound-guided paracentesis as described
== END 2016-10-25 11:30 | disposition home or self-care (01) ==
LOC: INTRAD 06:51
PROVIDERS: ATTEND Internal Medicine Gastroenterology
DX: R18.8 Other ascites (principal); G62.9 Polyneuropathy, unspecified; I11.0 Hypertensive heart disease with heart failure; I50.9 Heart failure, unspecified; I25.10 Atherosclerotic heart disease of native coronary artery without angina pectoris; E78.00 Pure hypercholesterolemia, unspecified; J44.9 Chronic obstructive pulmonary disease, unspecified; K21.9 Gastro-esophageal reflux disease without esophagitis; F32.9 Major depressive disorder, single episode, unspecified; F17.200 Nicotine dependence, unspecified, uncomplicated; D64.9 Anemia, unspecified; K76.9 Liver disease, unspecified; Z96.89 Presence of other specified functional implants; Z86.69 Personal history of other diseases of the nervous system and sense organs; Z87.39 Personal history of other diseases of the musculoskeletal system and connective tissue; Z82.49 Family history of ischemic heart disease and other diseases of the circulatory system
CPT/HCPCS: 36415; 49083; 82042; 84157; 85025; 85610; 87205; 89050

== ENCOUNTER → 2016-11-30 | Outpatient (CLI) | payer BC ==
[~2016-11-30] VITALS: Ht 182.9 cm; Wt 81.6 kg
[2016-11-30] VITALS (7 sets, daily range): BP systolic 105–123; BP diastolic 65–80
[2016-11-30 08:58] LABS: BASO % 1 % (0-3); EOS % 1 % (0-3); HEMATOCRIT 40.7 % (39.0-53.0); LYMPH # 1.2 x10^3/uL (1.0-4.8); LYMPH % 28 % (24-48); MEAN CORPUSCULAR HEMOGLOBIN 28 pg (25-35); MEAN CORPUSCULAR HGB CONC 32 g/dL (31-37); MEAN CORPUSCULAR VOLUME 87 fL (79-100); MONO % 13 % (0-9); NEUT % 57 % (31-73); PLATELET COUNT 178 x10^3/uL (140-400); RED BLOOD COUNT 4.67 x10^6/uL (4.30-5.70); RED CELL DISTRIBUTION WIDTH 16.3 % (11.5-14.5); WHITE BLOOD COUNT 4.2 x10^3/uL (4.0-11.0)
[2016-11-30 09:15] LABS: INR 1.6 (0.8-1.1); PROTHROMBIN TIME PATIENT 18.4 SEC (11.7-14.0)
--- NOTE | 2016-12-01 08:37 | RAD ---
Ultrasound-guided paracentesis 12/01/2016 8:32 AM Procedure: Informed consent was obtained. A timeout procedure was performed. Sonographic evaluation of the abdomen was performed demonstrating . The right lower quadrant was prepped and draped in sterile fashion. 1% lidocaine without epinephrine was administered for local anesthesia. Real-time ultrasonographic guidance was used in passing a 5 Spanish Yueh catheter into the fluid collection. Reference images were saved medical record. 3.6 L of serous ascites was removed. The catheter was removed and pressure held to achieve hemostasis. A sterile dressing was applied. Impression: Ultrasound-guided paracentesis
== END | disposition home or self-care (01) ==
LOC: INTRAD 08:23
PROVIDERS: ATTEND Internal Medicine Gastroenterology
DX: R18.8 Other ascites (principal); E11.42 Type 2 diabetes mellitus with diabetic polyneuropathy; I11.0 Hypertensive heart disease with heart failure; I50.9 Heart failure, unspecified; E78.00 Pure hypercholesterolemia, unspecified; J44.9 Chronic obstructive pulmonary disease, unspecified; F32.9 Major depressive disorder, single episode, unspecified; D64.9 Anemia, unspecified; E11.39 Type 2 diabetes mellitus with other diabetic ophthalmic complication; H40.9 Unspecified glaucoma; F17.200 Nicotine dependence, unspecified, uncomplicated; Z86.73 Personal history of transient ischemic attack (TIA), and cerebral infarction without residual deficits; Z86.69 Personal history of other diseases of the nervous system and sense organs; Z82.49 Family history of ischemic heart disease and other diseases of the circulatory system; Z87.39 Personal history of other diseases of the musculoskeletal system and connective tissue
CPT/HCPCS: 36415; 49083; 85025; 85610

== ENCOUNTER 2016-12-21 08:34 | Outpatient (CLI) | payer BC ==
[~2016-12-21] VITALS: Ht 182.9 cm; Wt 84.8 kg
[2016-12-21] VITALS (16 sets, daily range): BP systolic 109–125; BP diastolic 68–80
[2016-12-21 09:01] LABS: BASO # 0.1 x10^3/uL (0.0-0.2); BASO % 1 % (0-3); EOS % 1 % (0-3); HEMATOCRIT 41.8 % (39.0-53.0); HEMOGLOBIN 13.4 g/dL (13.0-17.5); LYMPH # 1.2 x10^3/uL (1.0-4.8); LYMPH % 24 % (24-48); MEAN CORPUSCULAR HEMOGLOBIN 28 pg (25-35); MEAN CORPUSCULAR HGB CONC 32 g/dL (31-37); MEAN CORPUSCULAR VOLUME 88 fL (79-100); MONO % 12 % (0-9); NEUT % 62 % (31-73); PLATELET COUNT 225 x10^3/uL (140-400); RED BLOOD COUNT 4.78 x10^6/uL (4.30-5.70); RED CELL DISTRIBUTION WIDTH 15.8 % (11.5-14.5); WHITE BLOOD COUNT 4.9 x10^3/uL (4.0-11.0)
[2016-12-21 09:12] LABS: INR 1.5 (0.8-1.1)
[2016-12-21] MEDS ORDERED: LIDOCAINE 1% / SOD BICARB 8.4% 20 ML VIAL. IJ ONE ×2 (09:12→09:30)
[2016-12-21] MEDS ORDERED: ALBUMIN HUMAN 25% 100 ML IV ONE ×2 (10:10→10:30)
--- NOTE | 2016-12-21 12:55 | RAD ---
Ultrasound-guided paracentesis 12/21/2016 12:50 PM Procedure: Informed consent was obtained. A timeout procedure was performed. Sonographic evaluation of the abdomen was performed demonstrating . The e right lower quadrant was prepped and draped in sterile fashion. 1% lidocaine without epinephrine was administered for local anesthesia. Real-time ultrasonographic guidance was used in passing a 5 Japanese Yueh catheter into the fluid collection. 6 L of serous ascites was removed. The catheter was removed and pressure held to achieve hemostasis. A sterile dressing was applied. Impression: Successful ultrasound-guided paracentesis
== END 2016-12-21 12:00 | disposition home or self-care (01) ==
LOC: INTRAD 08:34
PROVIDERS: ATTEND Internal Medicine Gastroenterology
DX: R18.8 Other ascites (principal); I11.0 Hypertensive heart disease with heart failure; I50.9 Heart failure, unspecified; H40.9 Unspecified glaucoma; I25.10 Atherosclerotic heart disease of native coronary artery without angina pectoris; E78.00 Pure hypercholesterolemia, unspecified; I48.91 Unspecified atrial fibrillation; K21.9 Gastro-esophageal reflux disease without esophagitis; F41.9 Anxiety disorder, unspecified; F17.200 Nicotine dependence, unspecified, uncomplicated; D64.9 Anemia, unspecified; J44.9 Chronic obstructive pulmonary disease, unspecified; Z86.69 Personal history of other diseases of the nervous system and sense organs; Z87.39 Personal history of other diseases of the musculoskeletal system and connective tissue
CPT/HCPCS: 36415; 49083; 85025; 85610; P9046

== ENCOUNTER 2017-01-06 07:13 | Outpatient (CLI) | payer BC ==
[~2017-01-06] VITALS: Ht 182.9 cm; Wt 81.6 kg
[2017-01-06 07:42] LABS: BASO # 0.1 x10^3/uL (0.0-0.2); BASO % 2 % (0-3); EOS % 1 % (0-3); HEMATOCRIT 43.6 % (39.0-53.0); HEMOGLOBIN 13.7 g/dL (13.0-17.5); LYMPH # 1.2 x10^3/uL (1.0-4.8); LYMPH % 25 % (24-48); MEAN CORPUSCULAR HEMOGLOBIN 28 pg (25-35); MEAN CORPUSCULAR HGB CONC 32 g/dL (31-37); MEAN CORPUSCULAR VOLUME 88 fL (79-100); MONO % 11 % (0-9); NEUT % 61 % (31-73); PLATELET COUNT 211 x10^3/uL (140-400); RED BLOOD COUNT 4.95 x10^6/uL (4.30-5.70); WHITE BLOOD COUNT 4.8 x10^3/uL (4.0-11.0)
[2017-01-06 07:43] VITALS: BP 109/75
[2017-01-06 08:00] LABS: INR 1.4 (0.8-1.1); PROTHROMBIN TIME PATIENT 16.5 SEC (11.7-14.0)
[2017-01-06] MEDS ORDERED: LIDOCAINE 1% / SOD BICARB 8.4% 20 ML VIAL. IJ ONE ×2 (08:29→08:30)
--- NOTE | 2017-01-06 08:52 | PDOC1 ---
History and Physical Date of Procedure Date of Admission 01/06/17 Procedure Procedure Paracentesis Indication Indication Ascites History of Present Illness Reason for Visit Same Past Medical History Past Medical History HTN, CHF, afib, anemia, hyperlipidemia, PFO Past Surgical History Past Surgical History Pacemaker Current Medications Current Medications Current Medications Lidocaine/Sodium Bicarbonate (Buffered Lidocaine 1%) 3 ml 1X ONCE IJ ; Start 01/06/17 at 08:30; Stop 01/06/17 at 08:31; Status DC Lidocaine/Sodium Bicarbonate (Buffered Lidocaine 1%) 20 ml STK-MED ONCE IJ ; Start 01/06/17 at 08:29; Stop 01/06/17 at 08:30; Status DC Active Scripts Active Xarelto (Rivaroxaban) 10 Mg Tablet 20 Mg PO DAILYWSUP Lasix (Furosemide) 40 Mg Tablet 40 Mg PO BID Amiodarone Hcl 200 Mg Tablet 200 Mg PO HS Klor-Con M10 (Potassium Chloride) 10 Meq Tab.er.prt 20 Meq PO DAILYWBKFT Miralax (Polyethylene Glycol 3350) 17 Gm Powd.pack 17 Gm PO DAILY Lanoxin (Digoxin) 125 Mcg Tablet 125 Mcg PO DAILY Metoprolol Succinate ( Xl ) (Metoprolol Succinate) 25 Mg Tab.er.24h 25 Mg PO DAILY Reported Escitalopram Oxalate 10 Mg Tablet 0.5 Tab PO DAILY Pantoprazole Sodium 40 Mg Tablet.dr 40 Mg PO QHS Ferrous Sulfate 325 Mg Tablet 325 Mg PO DAILY Montelukast Sodium Tablet (Montelukast Sodium) 10 Mg Tablet 10 Mg PO HS Travatan Z (Travoprost) 5 Ml Drops 1 Drop OU HS Allergies Allergies: Coded Allergies: No Known Drug Allergies (Unverified , 08/17/16) Physical Exam Vital Signs GENERAL: No apparent distress. Alert and oriented. HEENT: Head normocephalic, atraumatic. NECK: Supple LUNGS: Clear to auscultation. HEART: RRR, S1, S2 present, pulses intact ABDOMEN: Distended, nontender Vital Signs Date Time Temp Pulse Resp B/P (MAP) Pulse Ox O2 Delivery O2 Flow Rate FiO2 01/06/17 07:51 Nasal Cannula 3.0 01/06/17 07:43 97.9 69 16 109/75 (86) 20 97.9 Assessment Assessment Ascites Problems: Plan Plan Paracentesis JAYLA WATTS MD Jan 06, 2017 08:52
[2017-01-06] MEDS ORDERED: ALBUMIN HUMAN 25% 200 ML IV ONE (09:06)
[2017-01-06] MEDS ORDERED: ALBUMIN HUMAN 25% 100 ML IV ONE ×2 (09:15)
[2017-01-06 09:16] VITALS: BP 118/80
[2017-01-06 09:35] VITALS: BP 119/83
--- NOTE | 2017-01-06 09:42 | RAD ---
Procedure: Ultrasound guided paracentesis. Indication: Ascites The procedure, risks, and complications, to include damage to hollow and solid abdominal viscera, bleeding, peritonitis and infection were explained to the patient and they understood same and wished to proceed. Consent form signed. The right lower quadrant was prepped and draped using maximal sterile technique and 1% Xylocaine used for local anesthesia. Ultrasound-guided paracentesis: Under ultrasound guidance, a large pocket of fluid was identified and an 18 gauge Yueh needle was inserted into the fluid and 6600 cc of thin, straw-colored fluid was removed. The catheter was removed and pressure placed. An ultrasound image was saved and sent to PACS. The patient tolerated the procedure well and returned to the recovery area in stable condition. IMPRESSION: Ultrasound-guided paracentesis.
== END 2017-01-06 10:48 | disposition home or self-care (01) ==
LOC: INTRAD 07:13
PROVIDERS: ATTEND Internal Medicine Gastroenterology
DX: R18.8 Other ascites (principal); H40.9 Unspecified glaucoma; I63.9 Cerebral infarction, unspecified; G62.9 Polyneuropathy, unspecified; I50.9 Heart failure, unspecified; I25.10 Atherosclerotic heart disease of native coronary artery without angina pectoris; Z95.0 Presence of cardiac pacemaker; E78.00 Pure hypercholesterolemia, unspecified; I48.91 Unspecified atrial fibrillation; I10 Essential (primary) hypertension; J44.9 Chronic obstructive pulmonary disease, unspecified; J45.909 Unspecified asthma, uncomplicated; K21.9 Gastro-esophageal reflux disease without esophagitis; F32.9 Major depressive disorder, single episode, unspecified; F17.210 Nicotine dependence, cigarettes, uncomplicated; D64.9 Anemia, unspecified; K74.60 Unspecified cirrhosis of liver
CPT/HCPCS: 36415; 49083; 85025; 85610; P9046

== ENCOUNTER 2017-01-27 08:21 | Outpatient (CLI) | payer BC ==
[~2017-01-27] VITALS: Ht 182.9 cm; Wt 85.7 kg
[~2017-01-27 08:21] MED LIST changes: +BENZ-8 PO; -BENZ100C15 PO; -METO50TA2 PO; +METO50TA6 PO
[2017-01-27 08:53] VITALS: BP 114/85
[2017-01-27 09:16] LABS: BASO % 1 % (0-3); EOS % 1 % (0-3); HEMATOCRIT 40.4 % (39.0-53.0); HEMOGLOBIN 12.9 g/dL (13.0-17.5); LYMPH % 20 % (24-48); MEAN CORPUSCULAR HEMOGLOBIN 28 pg (25-35); MEAN CORPUSCULAR HGB CONC 32 g/dL (31-37); MEAN CORPUSCULAR VOLUME 88 fL (79-100); MONO % 12 % (0-9); NEUT % 66 % (31-73); PLATELET COUNT 217 x10^3/uL (140-400); RED BLOOD COUNT 4.58 x10^6/uL (4.30-5.70); RED CELL DISTRIBUTION WIDTH 15.7 % (11.5-14.5); WHITE BLOOD COUNT 4.7 x10^3/uL (4.0-11.0)
[2017-01-27 09:22] LABS: INR 1.4 (0.8-1.1); PROTHROMBIN TIME PATIENT 16.7 SEC (11.7-14.0)
[2017-01-27] MEDS ORDERED: LIDOCAINE WITH 8.4% SOD BICARB 3 ML DISP.SYRIN. IJ ONE ×2 (09:27)
[2017-01-27 09:52] VITALS: BP 125/82
[2017-01-27 10:00] VITALS: BP 120/82
[2017-01-27 10:14] VITALS: BP 121/78
[2017-01-27] MEDS ORDERED: ALBUMIN HUMAN 25% 100 ML IV ONE ×3 (10:16→10:45)
[2017-01-27 10:27] VITALS: BP 127/84
[2017-01-27 10:37] VITALS: BP 126/84
--- NOTE | 2017-01-28 17:15 | RAD ---
Ultrasound-guided paracentesis 01/27/2017 Procedure: The risks and benefits of the procedure were discussed the patient. Informed consent was obtained. A timeout procedure was performed. The right lower quadrant was prepped and draped using sterile barrier technique. All elements of maximal sterile barrier technique including the use of a cap, mask, sterile gown, sterile gloves, large sterile sheet, appropriate hand hygiene, and 2% chlorhexidine for cutaneous antisepsis (or acceptable alternative antiseptic per current guidelines) were followed for this procedure. Ultrasound evaluation demonstrated large volume ascites. 1% lidocaine without epinephrine was administered for local anesthesia. Real-time ultrasonographic guidance was used in passing a 5 Pashto Yueh catheter into the fluid collection. 6 L of serous ascites was removed. The catheter was removed and pressure held to achieve hemostasis. A sterile dressing was applied. Impression: Successful ultrasound-guided paracentesis
== END 2017-01-27 11:40 | disposition home or self-care (01) ==
LOC: INTRAD 08:21
PROVIDERS: ATTEND Internal Medicine Gastroenterology
DX: R18.8 Other ascites (principal); J44.9 Chronic obstructive pulmonary disease, unspecified; K21.9 Gastro-esophageal reflux disease without esophagitis; F17.200 Nicotine dependence, unspecified, uncomplicated; F32.9 Major depressive disorder, single episode, unspecified; D50.9 Iron deficiency anemia, unspecified; E78.00 Pure hypercholesterolemia, unspecified; I48.91 Unspecified atrial fibrillation; I10 Essential (primary) hypertension; Z87.39 Personal history of other diseases of the musculoskeletal system and connective tissue; Z86.69 Personal history of other diseases of the nervous system and sense organs
CPT/HCPCS: 36415; 49083; 85025; 85610; P9046

== ENCOUNTER 2017-02-16 08:37 | Outpatient (CLI) | payer BC ==
[2017-02-16 08:58] LABS: ADD MAN DIFF? NO
[2017-02-16 09:04] LABS: BASO # 0.1 x10^3/uL (0.0-0.2); BASO % 2 % (0-3); EOS % 0 % (0-3); HEMATOCRIT 44.2 % (39.0-53.0); HEMOGLOBIN 13.9 g/dL (13.0-17.5); LYMPH # 1.3 x10^3/uL (1.0-4.8); LYMPH % 27 % (24-48); MEAN CORPUSCULAR HEMOGLOBIN 28 pg (25-35); MEAN CORPUSCULAR HGB CONC 31 g/dL (31-37); MEAN CORPUSCULAR VOLUME 88 fL (79-100); MONO # 0.5 x10^3/uL (0.0-1.1); MONO % 11 % (0-9); NEUT % 60 % (31-73); PLATELET COUNT 247 x10^3/uL (140-400); RED BLOOD COUNT 5.02 x10^6/uL (4.30-5.70); RED CELL DISTRIBUTION WIDTH 15.9 % (11.5-14.5)
[2017-02-16 09:26] LABS: INR 1.5 (0.8-1.1)
[2017-02-16] MEDS ORDERED: ALBUMIN HUMAN 25% 100 ML IV ×2 (10:18→10:44)
[2017-02-16] MEDS: ALBUMIN HUMAN 25% 100 ML IV ×2 (10:49→10:50)
== END 2017-02-16 11:45 | disposition home or self-care (01) ==
LOC: INTRAD 08:37
DX: R18.8 Other ascites (principal)
CPT/HCPCS: 36415; 49083; 85025; 85610; P9046

== ENCOUNTER 2017-03-04 08:20 | Outpatient (CLI) | payer BC ==
[2017-03-04 08:41] LABS: ADD MAN DIFF? NO
[2017-03-04 08:49] LABS: BASO # 0.1 x10^3/uL (0.0-0.2); BASO % 1 % (0-3); EOS % 1 % (0-3); HEMATOCRIT 43.8 % (39.0-53.0); HEMOGLOBIN 14.3 g/dL (13.0-17.5); LYMPH # 1.4 x10^3/uL (1.0-4.8); LYMPH % 28 % (24-48); MEAN CORPUSCULAR HEMOGLOBIN 29 pg (25-35); MEAN CORPUSCULAR HGB CONC 33 g/dL (31-37); MEAN CORPUSCULAR VOLUME 90 fL (79-100); MONO # 0.5 x10^3/uL (0.0-1.1); MONO % 10 % (0-9); NEUT # 3.2 x10^3uL (1.8-7.7); NEUT % 61 % (31-73); PLATELET COUNT 229 x10^3/uL (140-400); RED CELL DISTRIBUTION WIDTH 15.9 % (11.5-14.5); WHITE BLOOD COUNT 5.2 x10^3/uL (4.0-11.0)
[2017-03-04 08:59] LABS: INR 1.4 (0.8-1.1); PROTHROMBIN TIME PATIENT 16.4 SEC (11.7-14.0)
[2017-03-04] MEDS ORDERED: LIDOCAINE WITH 8.4% SOD BICARB 3 ML DISP.SYRIN. (10:36)
[2017-03-04] MEDS ORDERED: ALBUMIN HUMAN 25% 100 ML IV ×2 (11:22→11:45)
[2017-03-04] MEDS: LIDOCAINE WITH 8.4% SOD BICARB 3 ML DISP.SYRIN. INJ (11:30)
[2017-03-04] MEDS: ALBUMIN HUMAN 25% 100 ML IV ×2 (11:30→12:15)
== END 2017-03-04 13:10 | disposition home or self-care (01) ==
LOC: INTRAD 08:20
DX: R18.8 Other ascites (principal); J44.9 Chronic obstructive pulmonary disease, unspecified; E78.00 Pure hypercholesterolemia, unspecified; I11.0 Hypertensive heart disease with heart failure; I50.9 Heart failure, unspecified; I48.91 Unspecified atrial fibrillation; D64.9 Anemia, unspecified; Z86.73 Personal history of transient ischemic attack (TIA), and cerebral infarction without residual deficits; Z86.69 Personal history of other diseases of the nervous system and sense organs
CPT/HCPCS: 36415; 49083; 85025; 85610; P9046

== ENCOUNTER 2017-03-22 08:36 | Outpatient (CLI) | payer BC ==
[2017-03-22 09:05] LABS: ADD MAN DIFF? NO
[2017-03-22 09:18] LABS: BASO # 0.1 x10^3/uL (0.0-0.2); BASO % 1 % (0-3); EOS # 0.1 x10^3/uL (0.0-0.7); EOS % 1 % (0-3); HEMATOCRIT 41.3 % (39.0-53.0); HEMOGLOBIN 13.5 g/dL (13.0-17.5); LYMPH # 1.2 x10^3/uL (1.0-4.8); LYMPH % 22 % (24-48); MEAN CORPUSCULAR HEMOGLOBIN 29 pg (25-35); MEAN CORPUSCULAR HGB CONC 33 g/dL (31-37); MEAN CORPUSCULAR VOLUME 90 fL (79-100); MONO # 0.6 x10^3/uL (0.0-1.1); MONO % 10 % (0-9); NEUT # 3.7 x10^3uL (1.8-7.7); NEUT % 66 % (31-73); PLATELET COUNT 288 x10^3/uL (140-400); RED CELL DISTRIBUTION WIDTH 16.8 % (11.5-14.5); WHITE BLOOD COUNT 5.6 x10^3/uL (4.0-11.0)
[2017-03-22 09:39] LABS: INR 1.3 (0.8-1.1); PROTHROMBIN TIME PATIENT 15.7 SEC (11.7-14.0)
[2017-03-22] MEDS ORDERED: ALBUMIN HUMAN 25% 100 ML IV ×4 (11:07→11:15)
== END 2017-03-22 12:03 | disposition home or self-care (01) ==
LOC: INTRAD 08:36
DX: R18.8 Other ascites (principal); I11.0 Hypertensive heart disease with heart failure; I50.9 Heart failure, unspecified; I25.10 Atherosclerotic heart disease of native coronary artery without angina pectoris; E78.00 Pure hypercholesterolemia, unspecified; I48.91 Unspecified atrial fibrillation; J44.9 Chronic obstructive pulmonary disease, unspecified; F42.9 Obsessive-compulsive disorder, unspecified; F17.200 Nicotine dependence, unspecified, uncomplicated; D64.9 Anemia, unspecified; Z86.69 Personal history of other diseases of the nervous system and sense organs; Z86.73 Personal history of transient ischemic attack (TIA), and cerebral infarction without residual deficits; Z87.39 Personal history of other diseases of the musculoskeletal system and connective tissue
CPT/HCPCS: 36415; 49083; 85025; 85610

== ENCOUNTER 2017-04-01 07:02 | Outpatient (CLI) | payer BC ==
[2017-04-01 07:29] LABS: ADD MAN DIFF? NO
[2017-04-01 07:38] LABS: BASO % 1 % (0-3); EOS % 1 % (0-3); HEMATOCRIT 41.2 % (39.0-53.0); HEMOGLOBIN 13.3 g/dL (13.0-17.5); LYMPH # 1.3 x10^3/uL (1.0-4.8); LYMPH % 25 % (24-48); MEAN CORPUSCULAR HEMOGLOBIN 29 pg (25-35); MEAN CORPUSCULAR HGB CONC 32 g/dL (31-37); MEAN CORPUSCULAR VOLUME 90 fL (79-100); MONO # 0.5 x10^3/uL (0.0-1.1); MONO % 10 % (0-9); NEUT # 3.3 x10^3uL (1.8-7.7); NEUT % 64 % (31-73); PLATELET COUNT 250 x10^3/uL (140-400); RED BLOOD COUNT 4.58 x10^6/uL (4.30-5.70); RED CELL DISTRIBUTION WIDTH 16.3 % (11.5-14.5); WHITE BLOOD COUNT 5.1 x10^3/uL (4.0-11.0)
[2017-04-01 07:45] LABS: INR 1.5 (0.8-1.1); PARTIAL THROMBOPLASTIN TIME 37 SEC (24-38); PROTHROMBIN TIME PATIENT 17.6 SEC (11.7-14.0)
[2017-04-01] MEDS ORDERED: ALBUMIN HUMAN 25% 100 ML IV ×2 (08:58)
[2017-04-01] MEDS: ALBUMIN HUMAN 25% 100 ML IV ×4 (09:07→09:47)
== END 2017-04-01 10:45 | disposition home or self-care (01) ==
LOC: INTRAD 07:02
DX: R18.8 Other ascites (principal); H40.9 Unspecified glaucoma; I11.0 Hypertensive heart disease with heart failure; I50.9 Heart failure, unspecified; I25.10 Atherosclerotic heart disease of native coronary artery without angina pectoris; E78.00 Pure hypercholesterolemia, unspecified; I48.91 Unspecified atrial fibrillation; J44.9 Chronic obstructive pulmonary disease, unspecified; F32.9 Major depressive disorder, single episode, unspecified; K21.9 Gastro-esophageal reflux disease without esophagitis; D64.9 Anemia, unspecified; G62.9 Polyneuropathy, unspecified; Z87.39 Personal history of other diseases of the musculoskeletal system and connective tissue; Z79.01 Long term (current) use of anticoagulants; Z86.69 Personal history of other diseases of the nervous system and sense organs; Z86.73 Personal history of transient ischemic attack (TIA), and cerebral infarction without residual deficits
CPT/HCPCS: 36415; 49083; 85025; 85610; 85730; P9046

== ENCOUNTER 2017-04-19 08:30 | Outpatient (CLI) | payer BC ==
[2017-04-19 08:50] LABS: ADD MAN DIFF? NO
[2017-04-19 08:57] LABS: BASO # 0.1 x10^3/uL (0.0-0.2); BASO % 1 % (0-3); EOS % 1 % (0-3); HEMATOCRIT 40.6 % (39.0-53.0); HEMOGLOBIN 13.1 g/dL (13.0-17.5); LYMPH # 1.3 x10^3/uL (1.0-4.8); LYMPH % 24 % (24-48); MEAN CORPUSCULAR HEMOGLOBIN 30 pg (25-35); MEAN CORPUSCULAR HGB CONC 32 g/dL (31-37); MEAN CORPUSCULAR VOLUME 91 fL (79-100); MONO # 0.6 x10^3/uL (0.0-1.1); MONO % 11 % (0-9); NEUT # 3.5 x10^3uL (1.8-7.7); NEUT % 63 % (31-73); PLATELET COUNT 267 x10^3/uL (140-400); RED BLOOD COUNT 4.45 x10^6/uL (4.30-5.70); RED CELL DISTRIBUTION WIDTH 16.4 % (11.5-14.5); WHITE BLOOD COUNT 5.5 x10^3/uL (4.0-11.0)
[2017-04-19 09:10] LABS: INR 1.4 (0.8-1.1); PROTHROMBIN TIME PATIENT 16.6 SEC (11.7-14.0)
[2017-04-19 09:15] LABS: PLT ESTIMATE ADEQUATE (ADEQUATE)
[2017-04-19] MEDS ORDERED: LIDOCAINE WITH 8.4% SOD BICARB 3 ML DISP.SYRIN. ×2 (09:27)
[2017-04-19] MEDS ORDERED: ALBUMIN HUMAN 25% 100 ML IV ×2 (09:28→10:19)
[2017-04-19] MEDS: ALBUMIN HUMAN 25% 100 ML IV ×2 (10:01→10:25)
[2017-04-19] MEDS: LIDOCAINE WITH 8.4% SOD BICARB 3 ML DISP.SYRIN. IJ (10:02)
== END 2017-04-19 12:05 | disposition home or self-care (01) ==
LOC: INTRAD 08:30
DX: R18.8 Other ascites (principal); I25.10 Atherosclerotic heart disease of native coronary artery without angina pectoris; I11.0 Hypertensive heart disease with heart failure; I50.9 Heart failure, unspecified; I48.91 Unspecified atrial fibrillation; E78.00 Pure hypercholesterolemia, unspecified; J44.9 Chronic obstructive pulmonary disease, unspecified; K21.9 Gastro-esophageal reflux disease without esophagitis; K74.60 Unspecified cirrhosis of liver; G62.9 Polyneuropathy, unspecified; F32.9 Major depressive disorder, single episode, unspecified; F17.200 Nicotine dependence, unspecified, uncomplicated; Z79.01 Long term (current) use of anticoagulants; Z98.890 Other specified postprocedural states; Z95.0 Presence of cardiac pacemaker
CPT/HCPCS: 36415; 49083; 85025; 85610; P9046

== ENCOUNTER 2017-04-29 08:41 | Outpatient (CLI) | payer BC ==
[2017-04-29 09:01] LABS: ADD MAN DIFF? NO
[2017-04-29 09:14] LABS: INR 1.3 (0.8-1.1); PROTHROMBIN TIME PATIENT 15.6 SEC (11.7-14.0)
[2017-04-29 09:32] LABS: BASO % 1 % (0-3); EOS % 1 % (0-3); HEMATOCRIT 43.3 % (39.0-53.0); HEMOGLOBIN 13.8 g/dL (13.0-17.5); LYMPH # 1.4 x10^3/uL (1.0-4.8); LYMPH % 24 % (24-48); MEAN CORPUSCULAR HEMOGLOBIN 29 pg (25-35); MEAN CORPUSCULAR HGB CONC 32 g/dL (31-37); MEAN CORPUSCULAR VOLUME 91 fL (79-100); MONO # 0.6 x10^3/uL (0.0-1.1); MONO % 11 % (0-9); NEUT # 3.6 x10^3uL (1.8-7.7); NEUT % 63 % (31-73); PLATELET COUNT 270 x10^3/uL (140-400); RED BLOOD COUNT 4.77 x10^6/uL (4.30-5.70); RED CELL DISTRIBUTION WIDTH 15.7 % (11.5-14.5); WHITE BLOOD COUNT 5.7 x10^3/uL (4.0-11.0)
[2017-04-29] MEDS ORDERED: LIDOCAINE WITH 8.4% SOD BICARB 3 ML DISP.SYRIN. (10:03)
[2017-04-29] MEDS ORDERED: ALBUMIN HUMAN 25% 100 ML IV (10:39)
[2017-04-29] MEDS: ALBUMIN HUMAN 25% 100 ML IV (11:00)
[2017-04-29] MEDS: LIDOCAINE WITH 8.4% SOD BICARB 3 ML DISP.SYRIN. IJ (11:00)
== END 2017-04-29 12:00 | disposition home or self-care (01) ==
LOC: INTRAD 08:41
DX: R18.8 Other ascites (principal); H40.9 Unspecified glaucoma; I63.9 Cerebral infarction, unspecified; I50.9 Heart failure, unspecified; I25.10 Atherosclerotic heart disease of native coronary artery without angina pectoris; Z95.0 Presence of cardiac pacemaker; E78.00 Pure hypercholesterolemia, unspecified; I48.91 Unspecified atrial fibrillation; I10 Essential (primary) hypertension; J45.909 Unspecified asthma, uncomplicated; J43.9 Emphysema, unspecified; K21.9 Gastro-esophageal reflux disease without esophagitis; F32.9 Major depressive disorder, single episode, unspecified; F17.210 Nicotine dependence, cigarettes, uncomplicated; D64.9 Anemia, unspecified; K74.60 Unspecified cirrhosis of liver
CPT/HCPCS: 36415; 49083; 85025; 85610; P9046

== ENCOUNTER 2017-05-11 08:28 | Outpatient (CLI) | payer BC ==
[2017-05-11] MEDS ORDERED: LIDOCAINE WITH 8.4% SOD BICARB 3 ML DISP.SYRIN. (09:02)
[2017-05-11] MEDS: LIDOCAINE WITH 8.4% SOD BICARB 3 ML DISP.SYRIN. IJ (09:48)
[2017-05-11] MEDS ORDERED: ALBUMIN HUMAN 25% 100 ML IV ×2 (10:02→10:26)
[2017-05-11] MEDS: ALBUMIN HUMAN 25% 100 ML IV ×2 (10:16→10:30)
== END 2017-05-11 11:30 | disposition home or self-care (01) ==
LOC: INTRAD 08:28
DX: R18.8 Other ascites (principal)
CPT/HCPCS: 49083; P9046

== ENCOUNTER 2017-05-23 07:05 | Outpatient (CLI) | payer BC ==
[2017-05-23] MEDS ORDERED: LIDOCAINE WITH 8.4% SOD BICARB 3 ML DISP.SYRIN. (08:20)
[2017-05-23] MEDS ORDERED: ALBUMIN HUMAN 25% 100 ML IV ×2 (09:07→09:26)
[2017-05-23] MEDS: ALBUMIN HUMAN 25% 100 ML IV ×2 (09:41→09:42)
[2017-05-23] MEDS: LIDOCAINE WITH 8.4% SOD BICARB 3 ML DISP.SYRIN. INJ (09:41)
== END 2017-05-23 11:12 | disposition home or self-care (01) ==
LOC: INTRAD 07:05
DX: R18.8 Other ascites (principal)
CPT/HCPCS: 49083; P9046

== ENCOUNTER 2017-06-08 08:16 | Outpatient (CLI) | payer BC ==
[~2017-06-08 08:16] MED LIST changes: -AMIO200T2 PO; -AZIT250T PO; -BENZ-8 PO; -BENZ100C PO; -BUDE10.2 IH; -CETI10CA PO; -DEXT20CA7 PO; -DIGO125T16 PO; -DILT240C32 PO; -ESCITALOPRAM OX10 MG PO; -FERR-26 PO; -FURO-68 PO; +LIDOCAINE WITH 8.4% SOD BICARB 3 ML DISP.SYRIN.; -LISI-338 PO; -LOSA25TA4 PO; -METO-239 PO; -METO50TA6 PO; -MONT10TA9 PO; -OMEP20CA5 PO; -PANT40TA5 PO; -POLY17PO29 PO; -POTA10TA12 PO; -POTA20TA82 PO; -RIVA10TA PO; -SPIR25TA PO; -TRAV5DRO OU
[2017-06-08 08:41] LABS: ADD MAN DIFF? NO
[2017-06-08 08:45] LABS: BASO # 0.1 x10^3/uL (0.0-0.2); BASO % 1 % (0-3); EOS % 1 % (0-3); HEMATOCRIT 35.5 % (39.0-53.0); HEMOGLOBIN 11.6 g/dL (13.0-17.5); LYMPH # 1.1 x10^3/uL (1.0-4.8); LYMPH % 19 % (24-48); MEAN CORPUSCULAR HEMOGLOBIN 30 pg (25-35); MEAN CORPUSCULAR HGB CONC 33 g/dL (31-37); MEAN CORPUSCULAR VOLUME 90 fL (79-100); MONO # 0.6 x10^3/uL (0.0-1.1); MONO % 10 % (0-9); NEUT # 3.7 x10^3uL (1.8-7.7); NEUT % 68 % (31-73); PLATELET COUNT 230 x10^3/uL (140-400); RED BLOOD COUNT 3.93 x10^6/uL (4.30-5.70); RED CELL DISTRIBUTION WIDTH 14.1 % (11.5-14.5); WHITE BLOOD COUNT 5.5 x10^3/uL (4.0-11.0)
[2017-06-08 09:03] LABS: INR 1.3 (0.8-1.1); PROTHROMBIN TIME PATIENT 15.8 SEC (11.7-14.0)
[2017-06-08] MEDS ORDERED: fentaNYL PF VIAL 100 MCG/2 ML VIAL (09:33)
[2017-06-08] MEDS ORDERED: ALBUMIN HUMAN 25% 100 ML IV (09:34)
[2017-06-08] MEDS: LIDOCAINE WITH 8.4% SOD BICARB 3 ML DISP.SYRIN. IJ (10:15)
[2017-06-08] MEDS: ALBUMIN HUMAN 25% 100 ML IV (10:15)
== END 2017-06-08 11:45 | disposition home or self-care (01) ==
LOC: INTRAD 08:16
DX: K74.60 Unspecified cirrhosis of liver (principal); J30.9 Allergic rhinitis, unspecified; I25.10 Atherosclerotic heart disease of native coronary artery without angina pectoris; J96.01 Acute respiratory failure with hypoxia; J44.9 Chronic obstructive pulmonary disease, unspecified; K21.9 Gastro-esophageal reflux disease without esophagitis; F32.9 Major depressive disorder, single episode, unspecified; E78.00 Pure hypercholesterolemia, unspecified; I48.91 Unspecified atrial fibrillation; H40.9 Unspecified glaucoma; I11.0 Hypertensive heart disease with heart failure; I50.9 Heart failure, unspecified; D64.9 Anemia, unspecified; G62.9 Polyneuropathy, unspecified; Z95.0 Presence of cardiac pacemaker; F17.200 Nicotine dependence, unspecified, uncomplicated; Z86.73 Personal history of transient ischemic attack (TIA), and cerebral infarction without residual deficits
CPT/HCPCS: 36415; 49083; 85025; 85610; P9046

== ENCOUNTER 2017-06-27 06:50 | Outpatient (CLI) | payer BC ==
[2017-06-27 07:03] LABS: ADD MAN DIFF? NO
[2017-06-27 07:08] LABS: BASO # 0.1 x10^3/uL (0.0-0.2); BASO % 1 % (0-3); EOS # 0.1 x10^3/uL (0.0-0.7); EOS % 1 % (0-3); HEMATOCRIT 36.7 % (39.0-53.0); HEMOGLOBIN 12.2 g/dL (13.0-17.5); LYMPH # 1.3 x10^3/uL (1.0-4.8); LYMPH % 22 % (24-48); MEAN CORPUSCULAR HEMOGLOBIN 30 pg (25-35); MEAN CORPUSCULAR HGB CONC 33 g/dL (31-37); MEAN CORPUSCULAR VOLUME 91 fL (79-100); MONO # 0.8 x10^3/uL (0.0-1.1); MONO % 13 % (0-9); NEUT # 3.9 x10^3uL (1.8-7.7); NEUT % 63 % (31-73); PLATELET COUNT 253 x10^3/uL (140-400); RED BLOOD COUNT 4.05 x10^6/uL (4.30-5.70); RED CELL DISTRIBUTION WIDTH 14.3 % (11.5-14.5); WHITE BLOOD COUNT 6.2 x10^3/uL (4.0-11.0)
[2017-06-27 07:37] LABS: INR 1.3 (0.8-1.1); PROTHROMBIN TIME PATIENT 15.7 SEC (11.7-14.0)
[2017-06-27] MEDS ORDERED: LIDOCAINE WITH 8.4% SOD BICARB 3 ML DISP.SYRIN. (08:01)
[2017-06-27] MEDS: LIDOCAINE WITH 8.4% SOD BICARB 3 ML DISP.SYRIN. INJ (09:26)
== END 2017-06-27 10:30 | disposition home or self-care (01) ==
LOC: INTRAD 06:50
DX: R18.8 Other ascites (principal); Z86.73 Personal history of transient ischemic attack (TIA), and cerebral infarction without residual deficits; G62.9 Polyneuropathy, unspecified; H40.9 Unspecified glaucoma; I11.0 Hypertensive heart disease with heart failure; I50.9 Heart failure, unspecified; I25.10 Atherosclerotic heart disease of native coronary artery without angina pectoris; Z95.0 Presence of cardiac pacemaker; Z79.01 Long term (current) use of anticoagulants; E78.00 Pure hypercholesterolemia, unspecified; I48.91 Unspecified atrial fibrillation; J44.9 Chronic obstructive pulmonary disease, unspecified; K21.9 Gastro-esophageal reflux disease without esophagitis; J96.01 Acute respiratory failure with hypoxia; F32.9 Major depressive disorder, single episode, unspecified; F17.200 Nicotine dependence, unspecified, uncomplicated; D50.9 Iron deficiency anemia, unspecified; Z98.890 Other specified postprocedural states
CPT/HCPCS: 36415; 49083; 85025; 85610

== ENCOUNTER 2017-08-05 06:56 | Outpatient (CLI) | payer BC ==
[2017-08-05 07:34] LABS: ADD MAN DIFF? NO
[2017-08-05 07:36] LABS: BASO # 0.1 x10^3/uL (0.0-0.2); BASO % 1 % (0-3); EOS # 0.1 x10^3/uL (0.0-0.7); EOS % 2 % (0-3); HEMATOCRIT 39.8 % (39.0-53.0); HEMOGLOBIN 13.3 g/dL (13.0-17.5); LYMPH # 1.2 x10^3/uL (1.0-4.8); LYMPH % 23 % (24-48); MEAN CORPUSCULAR HEMOGLOBIN 30 pg (25-35); MEAN CORPUSCULAR HGB CONC 34 g/dL (31-37); MEAN CORPUSCULAR VOLUME 89 fL (79-100); MONO # 0.5 x10^3/uL (0.0-1.1); MONO % 10 % (0-9); NEUT # 3.5 x10^3uL (1.8-7.7); NEUT % 64 % (31-73); PLATELET COUNT 166 x10^3/uL (140-400); RED BLOOD COUNT 4.49 x10^6/uL (4.30-5.70); RED CELL DISTRIBUTION WIDTH 14.4 % (11.5-14.5); WHITE BLOOD COUNT 5.4 x10^3/uL (4.0-11.0)
[2017-08-05 07:52] LABS: INR 1.4 (0.8-1.1); PROTHROMBIN TIME PATIENT 16.4 SEC (11.7-14.0)
[2017-08-05] MEDS ORDERED: LIDOCAINE WITH 8.4% SOD BICARB 3 ML DISP.SYRIN. (08:11)
[2017-08-05] MEDS ORDERED: LIDOCAINE 2%/EPI 1:100,000 20 ML VIAL. (08:29)
[2017-08-05] MEDS: LIDOCAINE 2%/EPI 1:100,000 20 ML VIAL. IJ (08:41)
[2017-08-05] MEDS: LIDOCAINE WITH 8.4% SOD BICARB 3 ML DISP.SYRIN. INJ (08:41)
== END 2017-08-05 11:23 | disposition home or self-care (01) ==
LOC: INTRAD 06:56
DX: R18.8 Other ascites (principal); K21.9 Gastro-esophageal reflux disease without esophagitis; J44.9 Chronic obstructive pulmonary disease, unspecified; I11.0 Hypertensive heart disease with heart failure; D50.9 Iron deficiency anemia, unspecified; F32.9 Major depressive disorder, single episode, unspecified; F17.200 Nicotine dependence, unspecified, uncomplicated; E78.00 Pure hypercholesterolemia, unspecified; I25.10 Atherosclerotic heart disease of native coronary artery without angina pectoris; Z98.890 Other specified postprocedural states; Z95.0 Presence of cardiac pacemaker; Z86.73 Personal history of transient ischemic attack (TIA), and cerebral infarction without residual deficits; Z79.01 Long term (current) use of anticoagulants; Z79.899 Other long term (current) drug therapy
CPT/HCPCS: 36415; 49083; 85025; 85610; J3490

== ENCOUNTER 2017-11-04 06:48 | Outpatient (CLI) | payer BC ==
[~2017-11-04] VITALS: Ht 182.9 cm; Wt 82.1 kg
[2017-11-04] VITALS (7 sets, daily range): BP systolic 107–118; BP diastolic 72–81
[~2017-11-04 06:48] MED LIST changes: +AMIO200T4 PO; +AZIT250T PO; +BENZ-8 PO; +BENZ100C PO; +BUDE10.2 IH; +CETI10CA PO; +DEXT20CA7 PO; +DIGO125T PO; +DIGO125T79 PO; +DILT240C32 PO; +ESCITALOPRAM OX10 MG PO; +FERR325T14 PO; +FURO-68 PO; -LIDOCAINE WITH 8.4% SOD BICARB 3 ML DISP.SYRIN.; +LISI-338 PO; +LOSA25TA5 PO; +METO-239 PO; +METO50TA6 PO; +MIDO10TA PO; +MONT10TA9 PO; +MULT1TAB13 PO; +OMEP20CA5 PO; +PANT40TA5 PO; +POLY17PO29 PO; +POTA10TA12 PO; +POTA20TA82 PO; +RIVA10TA PO; +SPIR100T4 PO; +SPIR25TA PO; +TRAV5DRO OU
[2017-11-04 07:51] LABS: BASO % 1 % (0-3); EOS # 0.1 x10^3/uL (0.0-0.7); EOS % 1 % (0-3); HEMATOCRIT 40.7 % (39.0-53.0); HEMOGLOBIN 13.8 g/dL (13.0-17.5); LYMPH # 1.3 x10^3/uL (1.0-4.8); LYMPH % 23 % (24-48); MEAN CORPUSCULAR HEMOGLOBIN 30 pg (25-35); MEAN CORPUSCULAR HGB CONC 34 g/dL (31-37); MEAN CORPUSCULAR VOLUME 90 fL (79-100); MONO # 0.5 x10^3/uL (0.0-1.1); MONO % 10 % (0-9); NEUT # 3.7 x10^3uL (1.8-7.7); NEUT % 66 % (31-73); PLATELET COUNT 138 x10^3/uL (140-400); RED BLOOD COUNT 4.54 x10^6/uL (4.30-5.70); WHITE BLOOD COUNT 5.6 x10^3/uL (4.0-11.0)
[2017-11-04 08:01] LABS: PROTHROMBIN TIME PATIENT 16.2 SEC (11.7-14.0)
--- NOTE | 2017-11-04 16:36 | RAD ---
Ultrasound-guided paracentesis 11/04/2017 4:32 PM Procedure: The risks and benefits of the procedure were discussed the patient. Informed consent was obtained. A timeout procedure was performed. Sonographic evaluation of the abdomen was performed demonstrating ascites . The right lower quadrant was prepped and draped using maximum sterile barrier technique. 1% lidocaine without epinephrine was administered for local anesthesia. Real-time ultrasonographic guidance was used in passing a 5 Yak[place] Yueh catheter into the fluid collection. 0.7 L of serosanguineous ascites was removed. The catheter was removed and pressure held to achieve hemostasis. A sterile dressing was applied. Impression: ultrasound-guided paracentesis
== END 2017-11-04 09:25 | disposition home or self-care (01) ==
LOC: INTRAD 06:48
PROVIDERS: ATTEND Internal Medicine Gastroenterology
DX: R18.8 Other ascites (principal)
CPT/HCPCS: 36415; 49083; 85025; 85610